=== PATIENT | male | born 1945 | race Caucasian/White ===

== ENCOUNTER → 2018-10-06 14:50 | Outpatient (CLI) | payer MEDICARE, SELFPAY ==
[2018-10-06 18:07] LABS: Add Manual Diff / Slide Review NO; Basophils Absolute Auto 0 /uL (0-100); Basophils Percent Auto 0.5 % (0-2); Eosinophils Absolute Auto 100 /uL (0-450); Eosinophils Percent Auto 0.6 % (2-4); Hematocrit 45.7 % (41-53); Hemoglobin 15.3 g/dL (13.5-17.5); Lymphocytes Absolute Auto 2400 /uL (1100-4500); Lymphocytes Percent Auto 27.7 % (25-40); Mean Corpuscular HGB Conc 33.4 % (30-36); Mean Corpuscular Hemoglobin 31.1 PG (26-34); Mean Corpuscular Volume 93.1 fL (80-100); Monocytes Absolute Auto 600 /uL (0-900); Monocytes Percent Auto 6.8 % (3-14); Neutrophils Absolute Auto 5700 /uL (1500-7000); Neutrophils Percent Auto 64.4 % (50-75); Platelet Count 289 X10^3/uL (150-400); Red Blood Cell Count 4.91 X10^6/uL (4.5-5.9); Red Cell Distribution Width 12.6 % (11.6-14.8); White Blood Cell Count 8.8 X10^3/uL (4.5-11.0)
[2018-10-06 18:54] LABS: Alanine Aminotransferase 30 IU/L (21-72); Albumin 4.4 g/dL (3.5-5.0); Albumin Globulin Ratio 1.5 (1.0-2.8); Alkaline Phosphatase 80 U/L (38-126); Aspartate Aminotransferase 22 IU/L (17-59); BUN Creatinine Ratio 18.8 (6-22); Bilirubin Total 0.5 mg/dL (0.2-1.3); Blood Urea Nitrogen 15 mg/dL (9-20); Calcium 9.1 mg/dL (8.4-10.2); Carbon Dioxide 29 mmol/L (22-32); Chloride 97 mmol/L (98-107); Cholesterol 198 mg/dL (140-199); Estimated Glomerular Filt Rate > 60.0 mL/min (>60); Globulin 2.9 g/dL (1.7-4.1); Glucose 83 mg/dL (80-110); HDL Cholesterol 56 mg/dL (40-60); HEMOLYSIS < 15 (0-50); LDL Cholesterol Calculated 130 mg/dL (<100); Potassium 4.5 mmol/L (3.4-5.1); Sodium 137 mmol/L (137-145); Total Protein 7.3 g/dL (6.3-8.2); Triglycerides 59 mg/dL (35-150)
[2018-10-06 19:24] LABS: Thyroid Stimulating Hormone 2.09 uIU/mL (0.47-4.68)
[2018-10-06 19:25] LABS: Prostate Specific Antigen Scrn 18.9 ng/mL (0.1-4.0)
== END ==
PROVIDERS: PCP Family Medicine; Visit Provider Family Medicine
DX: E03.9 Hypothyroidism, unspecified (principal); E78.5 Hyperlipidemia, unspecified; I10 Essential (primary) hypertension; Z12.5 Encounter for screening for malignant neoplasm of prostate
CPT/HCPCS: 36415; 80053; 80061; 84443; 85025; G0103

== ENCOUNTER → 2019-01-03 11:39 | Outpatient (CLI) | payer MEDICARE, SELFPAY | PROVIDERS: PCP Family Medicine; Visit Provider Family Medicine ==

== ENCOUNTER → 2019-01-03 11:59 | Outpatient (CLI) | payer MEDICARE, SELFPAY ==
--- NOTE | 2019-01-03 | DI.CT.S_ITS ---
PROCEDURE: CT CHEST ABD PEL W CON INDICATIONS: Malignant neoplasm of prostate TECHNIQUE: After the administration of oral and intravenous contrast, 5 mm thick sections acquired from the lung apices to the symphysis. 5 mm coronal and sagittal reformats were performed, with additional 7 mm coronal MIP reformats through the lungs. For radiation dose reduction, the following was used: automated exposure control, adjustment of mA and/or kV according to patient size. COMPARISON: None. FINDINGS: Image quality: Excellent. CHEST: Lungs and pleura: There is a 6 mm nodule in the left lower lobe. A ground glass density in lingula is likely discoid atelectasis. No acute airspace opacities. No pleural effusions or pneumothorax. Central and peripheral airways appear patent and normal in caliber. Mediastinum: Heart size is normal. No pericardial effusion. No mediastinal or hilar adenopathy by size criteria. Thoracic aorta and central pulmonary arteries are normal in size. Esophagus is normal in caliber. No hiatal hernia. Chest wall: No axillary or supraclavicular adenopathy by size criteria. Thyroid gland is unremarkable. ABDOMEN: Solid organs: Small indeterminate low density nodules in Liver is normal in size and enhancement. Gallbladder is normal. Biliary system is non dilated. Pancreas enhances normally. Spleen is normal in size and enhancement. No adrenal nodules. Kidneys demonstrate normal size and enhancement, without hydronephrosis. There is a 9 mm exophytic cortical nodule in the left kidney, most likely a cyst. Peritoneum and bowel: Bowel loops demonstrate normal wall thickness and caliber. There are scattered colonic diverticula. No evidence for active diverticulitis. No free fluid or air. Nodes and vessels: No retroperitoneal or mesenteric adenopathy by size criteria. Aorta and inferior vena cava are normal in size. There is moderate atherosclerosis. Miscellaneous: No ventral hernias. PELVIS: Genitourinary: Bladder wall appears slightly thickened. Prostate is enlarged and heterogeneous in enhancement with multiple small enhancing nodules. Miscellaneous: No inguinal hernias or adenopathy. Bones: Small indeterminate sclerotic bone lesions are noted in T4, T5, and L5, and left iliac bone. Mild compression fracture of T5. No vertebral body compression fractures. There is a left femoral neck fracture with internal fixation. IMPRESSION: 1. Enlarged prostate with heterogeneous enhancement and nodularity consistent with known diagnosis of prostate cancer. 2. Mild bilateral thickening suggest mild chronic bladder outlet obstruction. 3. There is a 6 mm nodule in the left lower lobe. Recommend followup CT in 3 months. 4. Small hepatic hypodensities are most likely cysts. 5. Small indeterminate sclerotic bone lesions are noted in T4, T5, and L5, and left iliac bone. Please correlate with bone scan. 6. Mild compression fracture of T5. 7. Diverticulosis without acute diverticulitis. Dictated by: Inderjit Retana M.D. on 01/03/2019 at 16:33 Approved by: Inderjit Retana M.D. on 01/03/2019 at 17:48
== END ==
PROVIDERS: PCP Family Medicine; Visit Provider Urology
DX: C61 Malignant neoplasm of prostate (principal); K76.9 Liver disease, unspecified; K57.90 Diverticulosis of intestine, part unspecified, without perforation or abscess without bleeding; M89.9 Disorder of bone, unspecified; M48.54XA Collapsed vertebra, not elsewhere classified, thoracic region, initial encounter for fracture
CPT/HCPCS: 71260; 74177; Q9967

== ENCOUNTER → 2019-01-16 09:36 | Outpatient (CLI) | payer MEDICARE, SELFPAY ==
--- NOTE | 2019-01-16 | DI.NM.S_ITS ---
PROCEDURE: NM BONE SCAN WHOLE BODY RADIOPHARMACEUTICAL: 21.0 mCi Tc-99m MDP IV. INDICATIONS: PROSTATE CANCER TECHNIQUE: Delayed whole-body scintigrams were obtained approximately 3-4 hours after intravenous injection of radiotracer. Anterior and posterior views were acquired from vertex to feet. Additional left and right oblique views of the pelvis with the were obtained. COMPARISON: [facility], CT, CT CHEST ABD PEL W CON, 01/03/2019, 12:55. [facility], CR, THORACIC SPINE 3 VIEWS, 06/07/2015, 10:11. [facility], CR, CERVICAL SPINE 2 OR 3 VIEWS, 06/07/2015, 10:11. FINDINGS: Linear uptake seen at the T10 level of the thoracic spine probably discogenic. Elsewhere, no suspicious tracer activity identified. Periarticular uptake about the knees is likely degenerative. Presumed discogenic activity seen in the lower cervical spine. No definite tracer activity to correlate with the small sclerotic bone lesions described on the comparison CT IMPRESSION: No definite suspicious tracer activity identified. Dictated by: Brad Sprague M.D. on 01/16/2019 at 15:49 Approved by: Brad Sprague M.D. on 01/16/2019 at 16:15
== END ==
PROVIDERS: PCP Family Medicine; Visit Provider Urology
DX: C61 Malignant neoplasm of prostate (principal)
CPT/HCPCS: 78306; A9503

== ENCOUNTER → 2019-03-08 11:41 | Outpatient (CLI) | payer MEDICARE, SELFPAY ==
[2019-03-08 12:28] LABS: Add Manual Diff / Slide Review NO; Basophils Absolute Auto 0 /uL (0-100); Basophils Percent Auto 0.6 % (0-2); Eosinophils Absolute Auto 100 /uL (0-450); Hemoglobin 15.1 g/dL (13.5-17.5); Lymphocytes Absolute Auto 1900 /uL (1100-4500); Lymphocytes Percent Auto 27.3 % (25-40); Mean Corpuscular HGB Conc 34.3 % (30-36); Mean Corpuscular Hemoglobin 31.5 PG (26-34); Mean Corpuscular Volume 91.9 fL (80-100); Monocytes Absolute Auto 500 /uL (0-900); Monocytes Percent Auto 7.1 % (3-14); Neutrophils Absolute Auto 4500 /uL (1500-7000); Platelet Count 283 X10^3/uL (150-400); Red Blood Cell Count 4.79 X10^6/uL (4.5-5.9); Red Cell Distribution Width 12.4 % (11.6-14.8)
[2019-03-08 12:41] LABS: Creatinine Urine Random 101.4 mg/dL
[2019-03-08 12:45] LABS: Microalbumi Creatinin Ratio Ur 24.6 ug/mg CR (<30); Microalbumin Urine Random 2.5 mg/dL (0-1.6)
[2019-03-08 17:12] LABS: Alanine Aminotransferase 22 IU/L (21-72); Albumin 4.2 g/dL (3.5-5.0); Albumin Globulin Ratio 1.4 (1.0-2.8); Alkaline Phosphatase 87 U/L (38-126); Aspartate Aminotransferase 22 IU/L (17-59); BUN Creatinine Ratio 27.1 (6-22); Bilirubin Total 0.5 mg/dL (0.2-1.3); Blood Urea Nitrogen 19 mg/dL (9-20); Calcium 9.5 mg/dL (8.4-10.2); Carbon Dioxide 28 mmol/L (22-32); Chloride 101 mmol/L (98-107); Cholesterol 222 mg/dL (140-199); Estimated Glomerular Filt Rate > 60.0 mL/min (>60); Glucose 103 mg/dL (80-110); HDL Cholesterol 57 mg/dL (40-60); HEMOLYSIS < 15 (0-50); LDL Cholesterol Calculated 153 mg/dL (<100); Sodium 139 mmol/L (137-145); Total Protein 7.2 g/dL (6.3-8.2); Triglycerides 60 mg/dL (35-150)
[2019-03-08 17:42] LABS: TSH w/ Reflex to FT4 3.78 uIU/mL (0.47-4.68)
== END ==
PROVIDERS: PCP Family Medicine; Visit Provider Family Medicine
DX: E78.00 Pure hypercholesterolemia, unspecified (principal); I10 Essential (primary) hypertension; E03.9 Hypothyroidism, unspecified; E78.5 Hyperlipidemia, unspecified; Z12.5 Encounter for screening for malignant neoplasm of prostate
CPT/HCPCS: 36415; 80053; 80061; 82043; 82570; 84443; 85025

== ENCOUNTER → 2020-01-19 11:10 | Outpatient (CLI) | payer MEDICARE, SELFPAY ==
[2020-01-19 13:46] LABS: Prostate Specific Antigen < 0.064 ng/mL (0.10-4.00)
[2020-01-19 13:46] LABS: Thyroid Stimulating Hormone 4.37 uIU/mL (0.47-4.68)
== END ==
PROVIDERS: PCP Family Medicine; Referring Provider Radiology Radiation Oncology; Visit Provider Radiology Radiation Oncology
DX: C61 Malignant neoplasm of prostate (principal); E05.00 Thyrotoxicosis with diffuse goiter without thyrotoxic crisis or storm
CPT/HCPCS: 36415; 84153; 84443

== ENCOUNTER → 2020-07-02 14:31 | Outpatient (CLI) | payer MEDICARE, SELFPAY ==
[2020-07-02 16:32] LABS: Prostate Specific Antigen 0.281 ng/mL (0.10-4.00)
== END ==
PROVIDERS: PCP Family Medicine; Referring Provider Urology; Visit Provider Urology
DX: Z85.46 Personal history of malignant neoplasm of prostate (principal)
CPT/HCPCS: 36415; 84153

== ENCOUNTER → 2021-01-16 12:16 | Outpatient (CLI) | payer MEDICARE, SELFPAY ==
[2021-01-16 13:20] LABS: Add Manual Diff / Slide Review NO; Basophils Absolute Auto 0 /uL (0-100); Basophils Percent Auto 0.5 % (0-2); Eosinophils Absolute Auto 100 /uL (0-450); Eosinophils Percent Auto 1.2 % (2-4); Hematocrit 45.6 % (41-53); Hemoglobin 15.1 g/dL (13.5-17.5); Lymphocytes Absolute Auto 1400 /uL (1100-4500); Lymphocytes Percent Auto 22.2 % (25-40); Mean Corpuscular HGB Conc 33.1 % (30-36); Mean Corpuscular Hemoglobin 32.1 PG (26-34); Mean Corpuscular Volume 96.9 fL (80-100); Monocytes Absolute Auto 500 /uL (0-900); Monocytes Percent Auto 8.3 % (3-14); Neutrophils Absolute Auto 4200 /uL (1500-7000); Neutrophils Percent Auto 67.8 % (50-75); Platelet Count 259 X10^3/uL (150-400); Red Blood Cell Count 4.71 X10^6/uL (4.5-5.9); Red Cell Distribution Width 12.7 % (11.6-14.8); White Blood Cell Count 6.2 X10^3/uL (4.5-11.0)
[2021-01-16 13:41] LABS: Alanine Aminotransferase 19 IU/L (<50); Albumin Globulin Ratio 1.3 (1.0-2.8); Alkaline Phosphatase 80 U/L (38-126); Aspartate Aminotransferase 28 IU/L (17-59); BUN Creatinine Ratio 17.3 (6-22); Bilirubin Total 0.4 mg/dL (0.2-1.3); Blood Urea Nitrogen 13 mg/dL (9-20); Calcium 9.4 mg/dL (8.4-10.2); Carbon Dioxide 28 mmol/L (22-32); Chloride 103 mmol/L (98-107); Cholesterol 224 mg/dL (140-199); Estimated Glomerular Filt Rate > 60.0 mL/min (>60); Glucose 93 mg/dL (80-110); HDL Cholesterol 67 mg/dL (40-60); HEMOLYSIS < 15 (0-50); LDL Cholesterol Calculated 146 mg/dL (<100); Potassium 4.8 mmol/L (3.4-5.1); Sodium 136 mmol/L (137-145); Triglycerides 56 mg/dL (35-150)
[2021-01-16 14:11] LABS: Prostate Specific Antigen 0.623 ng/mL (0.10-4.00)
[2021-01-16 14:12] LABS: Thyroid Stimulating Hormone 5.82 uIU/mL (0.47-4.68)
== END ==
PROVIDERS: PCP Family Medicine; Referring Provider Radiology Radiation Oncology; Visit Provider Radiology Radiation Oncology
DX: C61 Malignant neoplasm of prostate (principal); I10 Essential (primary) hypertension; E05.00 Thyrotoxicosis with diffuse goiter without thyrotoxic crisis or storm
CPT/HCPCS: 36415; 80053; 80061; 84153; 84443; 85025

== ENCOUNTER → 2022-10-08 13:45 | Outpatient (CLI) | payer OTHER, SELFPAY ==
--- NOTE | 2022-10-08 13:47 | DI.CT.S_ITS ---
PROCEDURE: CT CHEST W CON INDICATIONS: pulmonary nodule TECHNIQUE: After the administration of intravenous contrast, 5 mm thick sections acquired from the pulmonary apices to the posterior costophrenic angles. 1 mm axial lung, 5 mm thick coronal and sagittal reformats and 7 mm axial MIP were acquired. For radiation dose reduction, the following was used: automated exposure control, adjustment of mA and/or kV according to patient size. COMPARISON: PET-CT 09/09/2022. FINDINGS: Image quality: Excellent. Lungs and pleura: Moderate centrilobular emphysema. Multiple solid pulmonary nodules. Examples include: - Stable 6-7 mm solid, subpleural nodule in the left upper lobe (3/128). - Stable 5-6 mm solid nodule in the left lower lobe (3/174). - stable 5 mm solid nodule, lateral right lower lobe (3/181). Mediastinum: The FDG avid subcarinal lymph node has minimally increased in size, measuring 6 mm short axis, previously 5 mm short axis (2/32). This is not enlarged by size criteria. Three-vessel coronary calcifications. No additional enlarged lymph nodes. Bones and chest wall: No suspicious bony lesions. No vertebral body compression fractures. No axillary or supraclavicular adenopathy by size criteria. Thyroid gland is unremarkable. Osteoporosis by Hounsfield units criteria. Abdomen: Visualized upper abdominal solid organs appear normal. Upper abdominal bowel loops are normal in caliber. IMPRESSION: 1. Stable pulmonary nodules, suspicious for metastasis. 2. Minimal interval growth of the FDG avid subcarinal lymph node, measuring 6 mm short axis, previously 5 mm short axis. Mirta disease is not excluded. 3. Osteoporosis by Hounsfield units criteria. Dictated by: Dionisio Wahl M.D. on 10/08/2022 at 17:01 Approved by: Dionisio Wahl M.D. on 10/08/2022 at 17:08
== END ==
PROVIDERS: PCP Family Medicine; Referring Provider Internal Medicine Hematology & Oncology; Visit Provider Internal Medicine Hematology & Oncology
DX: R91.8 Other nonspecific abnormal finding of lung field (principal); J43.2 Centrilobular emphysema; R97.20 Elevated prostate specific antigen [PSA]; M81.0 Age-related osteoporosis without current pathological fracture
CPT/HCPCS: 71260; Q9967

== ENCOUNTER → 2023-03-09 11:40 | Outpatient (CLI) | payer OTHER, SELFPAY ==
--- NOTE | 2023-03-09 11:42 | DI.CT.S_ITS ---
PROCEDURE: CT CHEST WO CON INDICATIONS: prostate cancer TECHNIQUE: Noncontrast 5 mm thick sections acquired from the pulmonary apices to the posterior costophrenic angles. 1 mm lung window, 5 mm thick coronal and sagittal and 7 mm axial MIP reformats were then acquired. For radiation dose reduction, the following was used: automated exposure control, adjustment of mA and/or kV according to patient size. COMPARISON: None. FINDINGS: Image quality: Excellent. Lungs and pleura: No acute air space opacities. No pleural effusions or pneumothorax. Central and peripheral airways are patent and normal in caliber. Calcified granuloma. No suspicious pulmonary nodules. Moderate centrilobular emphysema. Mediastinum: Heart size is normal. No pericardial effusion. No mediastinal adenopathy by size criteria. Thoracic aorta and central pulmonary arteries are normal in size. Esophagus is normal in caliber. No hiatal hernia. Three-vessel coronary calcifications. Bones and chest wall: 4 mm dense bony lesion in the T4 endplate (series 6, image 40). No vertebral body compression fractures. No axillary or supraclavicular adenopathy by size criteria. Thyroid gland is diminutive . Abdomen: Visualized upper abdominal solid organs and bowel loops appear normal in the absence of contrast. IMPRESSION: 4 mm dense bony lesion in the T4 endplate, possibly a focus of metastatic disease versus bone island. Otherwise, no evidence of metastatic disease. Dictated by: Dionisio Wahl M.D. on 03/09/2023 at 14:50 Approved by: Dionisio Wahl M.D. on 03/09/2023 at 14:53
== END ==
PROVIDERS: PCP Family Medicine; Referring Provider Internal Medicine Hematology & Oncology; Visit Provider Internal Medicine Hematology & Oncology
DX: C61 Malignant neoplasm of prostate (principal); C79.51 Secondary malignant neoplasm of bone; J43.2 Centrilobular emphysema; I25.10 Atherosclerotic heart disease of native coronary artery without angina pectoris
CPT/HCPCS: 71250

== ENCOUNTER → 2023-03-15 13:20 | Outpatient (CLI) | payer OTHER, SELFPAY ==
--- NOTE | 2023-03-15 13:22 | DI.RAD.S_ITS ---
PROCEDURE: XR THORACIC SPINE 3V INDICATIONS: BACK PAIN TECHNIQUE: 3 views of the thoracic spine were acquired. COMPARISON: [facility], , THORACIC SPINE 3 VIEWS, 06/07/2015, 10:11., CT chest 03/09/2023 FINDINGS: Bones: The bones are demineralized. No high-grade degenerative changes. No acute appearing vertebral body height loss. No traumatic subluxation. There is a sclerotic lesion at the anterior superior T4 endplate and posterior T5 endplate, corresponding to dense bony lesions seen on recent CT. 12 pairs of ribs are noted, and appear intact where visualized. Soft tissues: No paravertebral stripe thickening. Aortic arch is calcified, indicating atherosclerosis. IMPRESSION: No acute osseous abnormality or traumatic subluxation. Sclerotic lesion in T4 and T5 vertebral bodies corresponding to dense bony lesion seen on recent CT 03/09/2023 and may represent enostosis versus metastatic disease. Approved by: Katharine Hdez M.D. on 03/15/2023 at 23:32
--- NOTE | 2023-03-15 13:22 | DI.RAD.S_ITS ---
PROCEDURE: XR LUMBAR SPINE 2-3V INDICATIONS: BACK PAIN TECHNIQUE: 3 views of the lumbar spine were acquired. COMPARISON: None. FINDINGS: Bones: 5 [id number] vertebrae are present. Mild to moderate multilevel disc height loss, endplate sclerosis and osteophytosis, worse at L2-L3, L4-L5 and L5-S1. No acute vertebral body height loss or traumatic subluxation. Partially visualized left femur fixation hardware. Soft tissues: Overlying bowel gas pattern is normal. Vascular calcifications are present. IMPRESSION: No acute osseous abnormality. Multilevel degenerative changes of the lumbar spine, most notably and moderate at L2-L3, L4-L5 and L5-S1. Approved by: Katharine Hdez M.D. on 03/15/2023 at 23:23
== END ==
PROVIDERS: PCP Family Medicine; Referring Provider Family Medicine; Visit Provider Family Medicine
DX: C61 Malignant neoplasm of prostate (principal); C79.51 Secondary malignant neoplasm of bone; M47.816 Spondylosis without myelopathy or radiculopathy, lumbar region; M47.817 Spondylosis without myelopathy or radiculopathy, lumbosacral region; M89.9 Disorder of bone, unspecified; M54.9 Dorsalgia, unspecified
CPT/HCPCS: 72072; 72100

== ENCOUNTER 2023-03-16 16:29 | Emergency (ER) | payer OTHER, SELFPAY ==
[2023-03-16 16:38] VITALS: BP 149/70; PULSE 67; RESP 18; TEMP 36.8; O2SAT 99; BMI 20.7
[2023-03-16] MEDS: LIDOCAINE PATCH 1 EACH ADH..PATCH TOP (18:38)
--- NOTE | 2023-03-16 18:38 | ED_ITS ---
HPI - Back Pain/Injury <Irma Alejo PA-C - Last Filed: 03/16/23 18:47> General Chief Complaint: Back Pain/Injury Stated Complaint: pain, sent by MD Time Seen by Provider: 03/16/23 18:13 Source: patient History of Present Illness HPI Narrative: 77-year-old male with past medical history prostate cancer with metastasis to the bone, essential hypertension, Graves disease presents to the ED with 5 days of mid back pain. Patient states that they called their PCP Dr. Castaneda yesterday and she ordered lumbar and thoracic x-rays, they have a follow-up appointment with her tomorrow. She also sent in a prescription for oxycodone which has provided good relief for the patient. Patient states that he used a heavy leaf blower a week ago, following which his pain started. Patient also had a CT of the chest on 03/09/23 which showed some midthoracic bony lesion, which possibly could be a focus of metastatic disease versus bone island. Patient denies fever, chills, chest pain, shortness of breath. Pain is aggravated with movements. Patient denies saddle paresthesias, numbness, tingling, weakness, urinary difficulties. Related Data Home Medications Medication Instructions Recorded Confirmed Serotonin 1 tab DAILY 09/14/22 12/14/22 acetylcysteine 600 mg capsule (NAC) 600 mg PO 3XW 09/14/22 12/14/22 ascorbic acid (vitamin C) 500 mg 500 mg PO 3XW 09/14/22 12/14/22 tablet (Vitamin C) multivitamin 1 tab PO 3XW 09/14/22 12/14/22 quercetin 500 mg capsule 500 mg PO 3XW 09/14/22 12/14/22 vitamin D3 125 mcg (5,000 1 cap PO 3XW 09/14/22 12/14/22 unit)-vitamin K2 90 mcg capsule zinc 50 mg capsule 50 mg PO 3XW 09/14/22 12/14/22 Previous Rx's Medication Instructions Recorded prednisone 5 mg tablet 5 mg PO DAILY prostate cancer #30 10/22/22 tabs abiraterone 250 mg tablet 1,000 mg PO DAILY #120 tabs 10/29/22 atenolol 50 mg tablet 50 mg PO DAILY #90 tabs 02/18/23 thyroid (pork) 60 mg tablet See Rx Instructions PO DAILY #90 02/18/23 tabs oxycodone 5 mg tablet 5 mg PO TID PRN pain #20 tabs 03/15/23 Allergies Allergy/AdvReac Type Severity Reaction Status Date / Time No Known Drug Allergies Allergy Verified 03/16/23 16:44 Review of Systems <Irma Alejo PA-C - Last Filed: 03/16/23 18:47> Review of Systems ROS Unobtainable: All systems reviewed & are unremarkable except as noted in HPI and below Constitutional Constitutional: Denies chills, Denies fatigue, Denies fever(s), Denies frequent falls, Denies lethargy and Denies weakness Eyes Eyes: Denies change in vision, Denies eye discharge, Denies irritation and Denies loss of vision ENT Ears, Nose, Mouth, and Throat: Denies change in voice, Denies dizziness, Denies neck pain, Denies sore throat and Denies throat swelling Cardiovascular Cardiovascular: Denies chest pain, Denies irregular heart rhythm, Denies lightheadedness, Denies palpitations, Denies dyspnea, Denies dyspnea on exertion and Denies orthopnea Respiratory Respiratory: Denies cough, Denies dyspnea, Denies dyspnea on exertion and Denies wheezing Gastrointestinal Gastrointestinal: Denies abdominal pain, Denies change in bowel habits, Denies diarrhea, Denies nausea and Denies vomiting Genitourinary Genitourinary: Denies hematuria, Denies flank pain, Denies urinary incontinence and Denies urinary urgency Musculoskeletal Musculoskeletal: Reports back pain, Denies muscle weakness, Denies neck pain, Denies numbness and Denies tingling Integumentary/Breasts Skin/Breast: Denies pruritus, Denies erythema, Denies rash and Denies wounds Neurologic Neurologic: Denies behavioral changes, Denies confusion, Denies dizziness, Denies frequent falls, Denies loss of vision, Denies numbness, Denies tingling and Denies weakness Psychiatric Psychiatric: Denies anxiety, Denies behavioral changes, Denies confusion, Denies depression, Denies homicidal ideation and Denies suicidal ideation Endocrine Endocrine: Denies fatigue, Denies flushing and Denies palpitations Hematologic/Lymphatic Hematologic/Lymphatic: Denies easy bruising Allergic/Immunologic Allergic/Immunologic: Denies urticaria, Denies throat swelling and Denies wheezing Patient History <Irma Alejo PA-C - Last Filed: 03/16/23 18:47> Medical History Depression (06/21/15) Essential hypertension Graves disease 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) Family History Father Stroke Social History marital status: number of children: 2 household members: spouse lives independently: Yes caregiver/support person: No housing: house Smoking Status: Former smoker second hand exposure: No alcohol intake: current substance use type: does not use Smoking Status: Former smoker alcohol intake frequency: 0-2 drinks per day Substance Use Type: does not use Exam <Irma Alejo PA-C - Last Filed: 03/16/23 18:47> Narrative Exam Narrative: Const General:?cooperative, healthy appearing and comfortable HENSC Head:?normal to inspection Ears:?hearing grossly normal bilaterally Nose:?external nose normal Face and sinus:?normal facial exam and sinuses nontender Mouth:?oral mucosae normal Throat:?posterior oropharynx normal Eyes General:?appearance normal, both eyes and all related structures Neck Neck:?normal visual inspection and no lymphadenopathy noted Resp Effort & Inspection:?normal respiratory effort Auscultation:?clear to auscultation bilaterally Cardio Rate:?regular rate Rhythm:?regular rhythm Musculoskeletal No midline tenderness to palpation. No paraspinal tenderness to palpation. Strength and sensation intact. There is full range of motion. Patient is neurovascularly intact. Neuro General:?patient alert, patient awake and patient oriented x3 Initial Vital Signs Initial Vital Signs: Vital Signs Temperature 98.2 F 03/16/23 16:38 Pulse Rate 67 03/16/23 16:38 Respiratory Rate 18 03/16/23 16:38 Blood Pressure 149/70 H 03/16/23 16:38 Pulse Oximetry 99 03/16/23 16:38 Oxygen Delivery Method Room Air 03/16/23 16:38 <Nurys Miranda DO - Last Filed: 03/17/23 09:05> Initial Vital Signs Initial Vital Signs: Vital Signs Temperature 98.2 F 03/16/23 16:38 Pulse Rate 67 03/16/23 16:38 Respiratory Rate 18 03/16/23 16:38 Blood Pressure 149/70 H 03/16/23 16:38 Pulse Oximetry 99 03/16/23 16:38 Oxygen Delivery Method Room Air 03/16/23 16:38 Course <Irma Alejo PA-C - Last Filed: 03/16/23 18:47> Orders Ordered: Discontinued Medications Lidocaine (Lidocaine Patch 1 Each Adh..Patch) 1 each TOP NOW ONE Stop: 03/16/23 18:35 Last Admin: 03/16/23 18:38 Dose: 1 each Documented By: JOSE Vital Signs Vital signs: Vital Signs - 8 hr 03/16/23 16:38 Temperature 98.2 F Pulse Rate 67 Respiratory Rate 18 Blood Pressure 149/70 H Pulse Oximetry 99 Oxygen Delivery Method Room Air <Nurys Miranda DO - Last Filed: 03/17/23 09:05> Orders Ordered: Discontinued Medications Lidocaine (Lidocaine Patch 1 Each Adh..Patch) 1 each TOP NOW ONE Stop: 03/16/23 18:35 Last Admin: 03/16/23 18:38 Dose: 1 each Documented By: JOSE Vital Signs Vital signs: Vital Signs - 8 hr 03/16/23 16:38 Temperature 98.2 F Pulse Rate 67 Respiratory Rate 18 Blood Pressure 149/70 H Pulse Oximetry 99 Oxygen Delivery Method Room Air MDM - Back Pain/Injury <Irma Alejo PA-C - Last Filed: 03/16/23 18:47> MDM Narrative Medical decision making narrative: 77-year-old male with past medical history prostate cancer with metastasis to the bone, essential hypertension, Graves disease presents to the ED with 5 days of mid back pain. Patient's symptoms are likely due to either a musculoskeletal sprain/strain from using the leaf blower versus metastatic disease that was found on x-ray and CT. Given that patient already has a prescription for oxycodone given by his PCP, recommend continuing to take that until he sees her tomorrow at noon. Also recommend adding on lidocaine patches for relief. ED return precautions given to patient. Patient verbalized understanding. Medical records reviewed: Yes Discharge Plan Departure Patient Disposition: Home Clinical Impression: Back pain Instructions: DI for Thoracic Back Pain Activity Restrictions/Additional Instructions: You were evaluated in the ED today for back pain. The thoracic back x-ray shows a sclerotic lesion in T4 and T5 vertebral bodies which could either be a benign in those doses versus metastatic disease from the prostate cancer. This was also seen in the recent CT that was performed on 03/09/2023. Your symptoms today could be caused either because you have a musculoskeletal sprain/strain of the back from using the leaf blower or it could be due to the findings on the x- ray. You have an appointment with Dr. Castaneda tomorrow, and she has already prescribed oxycodone for pain control. Please continue the oxycodone, you may also add on lidocaine patches for relief. Lidocaine patches are available [id number] at all drug stores under the trade name [employer]. Return to the ED if you experience any numbness, tingling, weakness, urinary difficulties. Prescriptions: No Action thyroid (pork) 60 mg tablet See Rx Instructions PO DAILY Qty: 90 1RF Rx Instructions: Take one 60mg tab along with one 15mg tab daily atenolol 50 mg tablet 50 mg PO DAILY Qty: 90 3RF oxycodone 5 mg tablet 5 mg PO TID PRN (Reason: pain) Qty: 20 0RF multivitamin Tablet 1 tab PO 3XW ascorbic acid (vitamin C) [Vitamin C] 500 mg Tablet 500 mg PO 3XW zinc 50 mg Capsule 50 mg PO 3XW acetylcysteine [NAC] 600 mg Capsule 600 mg PO 3XW Rx Instructions: pt to confirm dose vitamin D3-vitamin K2 125-90 mcg Capsule 1 cap PO 3XW Rx Instructions: PT UNSURE OF DOSE-PT TO CONFIRM quercetin 500 mg Capsule 500 mg PO 3XW Serotonin 1 tab DAILY prednisone 5 mg Tablet 5 mg PO DAILY Qty: 30 11RF abiraterone 250 mg Tablet 1,000 mg PO DAILY Qty: 120 11RF Rx Instructions: must be taken on empty stomach, at least 1 hr before or 2 hrs after a meal/food Referrals: Lindsay Carmen MD [Primary Care Provider] - Stand Alone Forms: Patient Portal/API <Nurys Miranda DO - Last Filed: 03/17/23 09:05> Cosign ED Attending Alizeature Attestation: I was immediately available in the department for consultation. Documentation has been reviewed.
[2023-03-16 18:46] VITALS: BP 166/75; PULSE 66; RESP 18; O2SAT 96
== END 2023-03-16 18:57 | disposition home or self-care (01) ==
PROVIDERS: Emergency Provider Student in an Organized Health Care Education/Training Program; PCP Family Medicine; Referring Provider Family Medicine
DX: M54.6 Pain in thoracic spine (principal)
CPT/HCPCS: 99282

== ENCOUNTER → 2023-03-20 09:11 | Outpatient (CLI) | payer OTHER, SELFPAY ==
--- NOTE | 2023-03-20 09:13 | DI.MRI.S_ITS ---
PROCEDURE: MR THORACIC SPINE WO CON INDICATIONS: 77-year-old male with back pain and history of prostate cancer. Stat interpretation requested TECHNIQUE: Noncontrast sagittal T1 spine echo and T2 fast spin echo, sagittal STIR, and T2 fast spin echo through the thoracic spine. COMPARISON: [facility], CT, CT CHEST WO CON, 03/09/2023, 11:50. FINDINGS: Image quality: Excellent. Alignment and Curvature: There is normal bony alignment. Bone Marrow: Wedge-shaped compression fracture of T7 shows internal marrow edema, new from the prior exam. No retropulsed fracture fragment. No central stenosis. Additional T5 compression fracture with 10% height loss is also noted without edema or change from the prior. Incidental T10 vertebral hemangioma Spinal Cord: Visualized spinal cord is normal in size and signal. Paraspinous Soft Tissues: No paravertebral masses. Miscellaneous: On axial images, central canal and foramina appear widely patent at all scanned levels. IMPRESSION: Acute T7 compression fracture with 50% height loss and no retropulsed fracture fragment. No canal compromise. Old T5 compression fracture, stable No evidence of metastatic disease Approved by: Derek Saleh M.D. on 03/20/2023 at 11:24
--- NOTE | 2023-03-20 09:13 | DI.MRI.S_ITS ---
PROCEDURE: MR LUMBAR SPINE WO CON INDICATIONS: back pain TECHNIQUE: Noncontrast sagittal T1 spin echo and T2 fast echo, sagittal STIR, and T2 fast spin echo through the lumbar spine. In cases with scoliosis, additional coronal T2 fast spin echo may be performed. COMPARISON: None. FINDINGS: Image quality: Excellent. Alignment and Curvature: There is normal bony alignment. Bone Marrow: Degenerative endplate changes. No compression fractures. Spinal Cord: Conus medullaris terminates at the L1 level. Visualized cord demonstrates normal signal and size. Paraspinous Soft Tissues: No paravertebral masses. T12-L1: Normal appearance. L1-L2: Normal appearance. L2-L3: Disc space narrowing with circumferential disc bulge results in mild central stenosis. Moderate bilateral foraminal stenosis L3-L4: Disc space narrowing with circumferential disc bulge and hypertrophic facet joints results in mild central stenosis. No foraminal stenosis L4-L5: Disc space narrowing with circumferential disc bulge results in mild central and moderate bilateral foraminal stenosis L5-S1: Disc space narrowing. No central or foraminal stenosis IMPRESSION: No acute findings. No fracture or traumatic malalignment. Multilevel degenerative disc disease results in varying degrees of central and foraminal stenosis including moderate bilateral foraminal stenosis L4-5 Approved by: Derek Saleh M.D. on 03/20/2023 at 10:59
== END ==
PROVIDERS: PCP Family Medicine; Referring Provider Family Medicine; Visit Provider Family Medicine
DX: C61 Malignant neoplasm of prostate (principal); C79.51 Secondary malignant neoplasm of bone; M51.36 Other intervertebral disc degeneration, lumbar region; M48.061 Spinal stenosis, lumbar region without neurogenic claudication; M48.54XA Collapsed vertebra, not elsewhere classified, thoracic region, initial encounter for fracture; M54.9 Dorsalgia, unspecified
CPT/HCPCS: 72146; 72148

== ENCOUNTER 2023-07-15 13:00 | Outpatient (RCR) | payer OTHER, SELFPAY ==
--- NOTE | 2023-06-10 16:37 | PT.OIE ---
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) Visit Care Team Role Provider Type Lindsay Carmen MD Attending Provider Physician Family Provider Primary Care Provider Referring Provider Specialty: Family Practice Address: [address] [place] [address], [facility] Email: [email or web address] Physical Therapy Initial Evaluation PT-OP-A Visit Information Start: 06/10/23 14:10 Freq: Status: Active Protocol: Document 06/10/23 15:30 NM (Rec: 06/10/23 16:36 NM [id number]) Out-Patient Physical Therapy Visit Information Visit Information Visit Type Initial Evaluation Visit Start Time 13:00 Visit Stop Time 13:50 Total Visit Minutes 50 Visit Number 1 Evaluation Information Evaluation Date 06/10/23 Precautions Precautions Hx of metastatic cancer: no spinal manipulations or spinal mobilizations Current and Hx of thoracic compression wedge fracture: limit spinal flexion especially loaded PT-OP-B Current Condition Start: 06/10/23 14:10 Freq: Status: Active Protocol: Document 06/10/23 15:30 NM (Rec: 06/10/23 16:36 NM [id number]) Current Condition History of Current Condition Onset Date January 2023 Current Complaints low back and mid back pain, weakness, poor endurance for activity and gait History of Current Condition Pt presents to clinic with mild thoracic and low back pain s/p a wedge compression fracture that occurred in January 2023. Pt was performing yard work (weed eater and leaf blower) when he felt a severe, sharp pain in the middle of his back that did not resolve. He had extreme difficulty walking, sitting, standing, and performing his ADLs. He followed up with Dr. Carmen, who ordered xrays, CT, and MRIs to determine the cause. Imaging revealed a stable compression wedge fracture at T7; he has a former T5 compression fracture. Pt was not given a brace but has been limiting his activity. At this time, he rarely has any thoracic spine pain. 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 He lives with his . Pt reports being active around the house, but has decreased energy overall. At the time of evaluation, pt has most difficulty with endurance, strength, posture, and performing ADLs. Prior Treatments and Tests Hx of L AMY (1999) Imaging results (03/20/23): MRI - T7 compression fracture with 50% height loss, no retropulsion, no cord compression; old T5 compression fracture. Stable. No sign of metastasis Treatment Goals Patient/Caregiver Goals Become stronger and more active Prior Functional Status Baseline Function- ADL's Independent Baseline Function- Mobility Independent Baseline Function- Gait walked about 1 mile/day Baseline Function- Recreation/Hobbies able to perform yard work, ADLs Personal Factors Other Personal Factors That May Effect Pt is currently receiving oral Therapy/Recovery chemo for prostate cancer, but reports that his blood markers are showing improvement. PT-OP-C Subjective Start: 06/10/23 14:10 Freq: Status: Active Protocol: Document 06/10/23 15:30 NM (Rec: 06/10/23 16:36 NM [id number]) Patient Questionnaires Oswestry Low Back Index Oswestry Score 13/50 OP-PT Pain Assessment Pain Assessment Grid Paper Pain Assessment Grid Completed Yes Location Lumbar spine Pain Location Details L>R Intensity 1 Scale Used Numeric (0 - 10) Description Aching,Dull Frequency Rarely Pain Duration during activity Pain Aggravating Factors Activity,Exercise,Bending, Lifting Pain Alleviating Factors Inactivity Thoracic spine Pain Location Details around shoulder blades Intensity 1 Scale Used Numeric (0 - 10) Description Aching,Dull Frequency Rarely Pain Duration during activity Pain Aggravating Factors Activity,Exercise,Bending, Lifting Pain Alleviating Factors Inactivity Comments Pain Comments Overall, pt reports more discomfort in his lumbar spine over his thoracic spine at this time. Pt is self-limiting , which helps his pain. PT-OP-D Balance Start: 06/10/23 14:10 Freq: Status: Active Protocol: Document 06/10/23 15:30 NM (Rec: 06/10/23 16:36 NM [id number]) OP-PT Balance Assessment Sitting Balance Static Sitting Balance Ability Normal Dynamic Sitting Balance Ability Normal Standing Balance Static Standing Balance Ability Good Dynamic Standing Balance Ability Fair Device Used none Tinetti Balance Assessment Sitting Balance Sitting Balance Steady, safe Arising from Chair Ability to Arise Able, w/o using arms Attempts to Arise Arises on 1st attempt Standing Balance Immediate Standing Balance Steady w/o support Standing Balance Narrow stance w/o support Nudged Response Staggers, catches self Standing with Eyes Closed Unsteady Turning Step Pattern Turning 360 Degrees Continuous steps Stability Turning 360 Degrees Unsteady, grabs/staggers Sitting Down Sitting Down Uses arms or unsteady Gait and Step Initiation of Gait No hesitancy Right Foot Step Length Does pass stance foot Right Foot Step Height Completely clears floor Left Foot Step Length Does pass stance foot Left Foot Step Height Completely clears floor Step Description Step Symmetry Step length appears equal Step Continuity Steps appear continuous Gait Description Path Description Mild/moderate deviation Trunk Description No sway Walking Stance Heels apart Scoring and Interpretation Tinetti Composite Score (points) 22 Interpretation of Scores At risk for falls (19-24) Tinetti Impairment Rating from Composite 1 to <20% Impaired (Score 23- Score 27) Adkins Fall Scale Copyright Permission PT-OP-E Functional Tests Start: 06/10/23 14:10 Freq: Status: Active Protocol: Document 06/10/23 15:30 NM (Rec: 06/10/23 16:36 NM [id number]) Functional Tests 6 Minute Walk Test Distance 1282 ft Device Used none Comments 390 m (below age norm), reports this walk is tiring Five Times Sit to Stand Test Score 15.38 s Comments no hands used PT-OP-F Manual Assessment Start: 06/10/23 14:10 Freq: Status: Active Protocol: Document 06/10/23 15:30 NM (Rec: 06/10/23 16:36 NM [id number]) Manual Assessments Joint Mobility Assessment Joint Mobility Assessment Thoracic spine individual joint not assessed due to fracture hx and risk PT-OP-G Mobility & Gait Start: 06/10/23 14:10 Freq: Status: Active Protocol: Document 06/10/23 15:30 NM (Rec: 06/10/23 16:36 NM [id number]) OP Gait Assessment Gait Gait Assistance Required: Independent Factors Limiting Gait Function Factors Limiting Gait Function Decreased Activity Tolerance, Decreased Strength PT-OP-H Neuro Start: 06/10/23 14:10 Freq: Status: Active Protocol: Document 06/10/23 15:30 NM (Rec: 06/10/23 16:36 NM [id number]) Sensation Evaluation Gross Sensation Gross Sensation WNL Coordination Evaluation Comments Coordination Comments C5-T12 dermatomes intact to light touch Deep Tendon Reflex & Clonus Assessment Deep Tendon Reflex Bilateral Bicep Deep Tendon Reflex 1+ Diminished PT-OP-J Posture/Palpation/Skin Start: 06/10/23 14:10 Freq: Status: Active Protocol: Document 06/10/23 15:30 NM (Rec: 06/10/23 16:36 NM [id number]) Posture Evaluation Position Standing Evaluation View posterior, anterior, lateral Head/C-Spine Posture Flexed T-Spine Posture Increased Kyphosis L-Spine Posture Increased Lordosis Shoulder Posture (L) Rounded,(R) Rounded,(L) Forward,(R) Forward Scapula Posture (L) Protracted,(R) Protracted Pelvis Posture Anteriorly Tilted Weight Distribution Balanced PT-OP-K Range of Motion Start: 06/10/23 14:10 Freq: Status: Active Protocol: Document 06/10/23 15:30 NM (Rec: 06/10/23 16:36 NM [id number]) Cervical Spine Range of Motion Cervical Spine Active Degrees Testing Position Sitting Flexion 60 Extension 30 Rotation Left 72 Rotation Right 60 Lateral Flexion Left 15 Lateral Flexion Right 20 Comments Thoracic Spine: -Flexion = 20 deg -Extension = 10 deg -R Lateral flexion = 10 deg -L lateral flexion = 10 deg -R rotation = 7 cm -L rotation = 6 cm No pain with movements Shoulder Goniometric Range of Motion Shoulder ROM Limitations Shoulder ROM Limitations Soft Tissue Tightness Comments General mobility screen performed due to time constraints: limited shoulder flexion and abduction (~150 deg); all remaining motions WFL PT-OP-M Strength Start: 06/10/23 14:10 Freq: Status: Active Protocol: Document 06/10/23 15:30 NM (Rec: 06/10/23 16:36 NM [id number]) Trunk Strength Trunk Manual Muscle Testing Testing Position Sitting Flexion 3+ Fair+ Extension 3+ Fair+ Rotation Left 3+ Fair+ Rotation Right 3+ Fair+ Lateral Flexion Left 3+ Fair+ Lateral Flexion Right 3+ Fair+ Core Stabilization Minimal - demos difficulty with stabilization and sway with resistance PT-OP-Q Treatments Start: 06/10/23 14:10 Freq: Status: Active Protocol: Document 06/10/23 15:30 NM (Rec: 06/10/23 16:36 NM [id number]) Therapeutic Exercises Sitting Exercises Pelvic tilt Sitting Exercise Name HEP Side bilateral Reps/Minutes 10 Comments cues for upright posture; educated to slump for ppt Chin retraction Sitting Exercise Name HEP Side bilateral Reps/Minutes 10 Comments with overpressure; cues for good upright posture PT-OP-T Assessment and Plan Start: 06/10/23 14:10 Freq: Status: Active Protocol: Document 06/10/23 15:30 NM (Rec: 06/10/23 16:36 NM [id number]) Physical Therapy Assessment Rehab Potential Rehabilitation Potential Good Evaluation Complexity Number of Personal Factors/Comorbidities 3 or More Number of Body Systems Impaired 3 Clinical Presentation at Evaluation Evolving Impairments Impairments Activity Tolerance,Balance, Coordination,Functional Activities,Functional Mobility ,Gait,Pain,Posture,ROM,Soft Tissue Mobility,Strength Other Concerns Fall Risk Moderate fall risk per Tinetti () Age Related Concerns Pt has hx of thyroiditis, eye problems, and wears hearing aids > reads lips Barriers to Rehabilitation Changes to cancer dx and treatment Goals Five Impairment strength Impairment trunk strength globally 3+/5 Short Term Goal (STG) Pt will improve global trunk strength to at least 4-/5 demonstrating good core activation strategies in order to stabilize spine effectively during gait, standing, lifting, and for activity tolerance. STG Duration 3 weeks Copyright Expert Goal (LTG) Pt will improve global trunk strength to at least 4/5 demonstrating good core activation strategies in order to stabilize spine effectively during gait, standing, lifting, and for improved activity tolerance. LTG Duration 6 weeks Four Impairment function, safety Impairment increased risk of compression fractures Short Term Goal (STG) Pt will verbalize at least 3 strategies for good body mechanics during lifting or carrying objects in order to decrease risk of compression fractures, improve safety during ADLs, and create new functional strategies to be able to perform ADLs. STG Duration 3 weeks Fci Goal (LTG) Pt will be able to verbalize and successfully demonstrate at least 3 strategies during lifting or carrying objects in order to decrease risk of compression fractures, improve safety during ADLs, and to create new functional strategies to be able to perform ADLs. LTG Duration 6 weeks Three Impairment ROM Impairment Thoracic ROM limited: flex (20 deg), ext (10 deg), B lateral flex (10 deg) Fci Goal (LTG) Pt will improve his thoracic ROM by at least 3-5 degrees to decrease trunk stiffness, improve posture, and increase functional mobility in order to perform ADLs. LTG Duration 6 weeks Two Impairment balance, function, safety Impairment Tinetti test score 22/28 ( moderate fall risk) Short Term Goal (STG) Pt will increase his Tinetti score by at least 2 points in order to move from the moderate fall risk category to low fall risk category in order to decrease fall risk and caregiver burden. STG Duration 3 weeks Copyright Expert Goal (LTG) Pt will increase his Tinetti score by 2 or more points in order to move to the low fall risk category in order to demonstrate safety during ambulation in addition to decrease fall risk and caregiver burden. LTG Duration 6 weeks One Impairment function, gait, endurance Impairment 6 MWT distance = 1282 ft (390m ) Norm for age = 527 m Short Term Goal (STG) Pt will improve 6 MWT by at least 50 m (MCID) in order to demonstrate improved endurance , strength, and balance. STG Duration 3 weeks Copyright Expert Goal (LTG) Pt will improve 6 MWT by at least 100 m in order to be within 50 m (1 MCID) of age- related norms in order to demonstrate improved endurance , activity tolerance, and BLE strength. LTG Duration 6 weeks Assessment Summary Assessment Pt is a 77 y.o. male presenting to the clinic with mild thoracic and low back pain s/p a thoracic compression wedge fracture from 01/2023; fracture is stable. Pt currently is also being treated for prostate cancer. During the evaluation, pt demonstrated limited and hypomobile thoracic and lumbar ROM; specific spinal segments were not assessed manually due to hx of compression fractures. Pt also demonstrated difficulty with stabilizing trunk and core against resistance. A 6 MWT was performed; pt ambulated 390 m, which is below his age- related norms. During a Tinetti balance and gait assessment, pt scored in the moderate fall risk category with a score of 22/28. There are impairments in balance, gait, trunk and core strength, endurance, and ROM. Pt would benefit from education on body mechanics during ADLs, especially lifting, carrying, yard work, and for general safety. During the evaluation, pt expressed that he was cautious and afraid of mobility due to fear of re- fracture. Pt is motivated to return to safely return to activity and is a good candidate for skilled PT to address the above impairments in order to decrease fall risk , increase safety during ADLs, decrease risk of re-injury, decrease caregiver burden, and increase activity tolerance to improve quality of life. Physical Therapy Plan Frequency and Duration Frequency of Treatment 2x/Week Duration of treatment (weeks) 6 Plan of Care Start Date 06/10/23 Plan of Care End Date 07/22/23 Therapeutic Interventions Therapeutic Interventions Balance Training,Coordination Training,Gait Training,Home Exercise Program,Neuromuscular Re-education,Patient/ Caregiver Education,Soft Tissue Mobilization,Taping, Therapeutic Activities, Therapeutic Exercises Modalities Cold Pack/Ice Massage,Electric Stimulation,Hot Packs Other Referrals/Consults Referrals/Consults Recommended Pt reports experiencing vision difficulties related to prior condition, 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 Continue with postural education and exercises
--- NOTE | 2023-06-15 14:21 | PT.OTN ---
Current Diagnoses Weakness (06/15/23) Wedge compression fracture of unspecified thoracic vertebra, subsequent encounter for fracture with routine healing (06/15/23) Physical Therapy Treatment Note PT-OP-A Visit Information Start: 06/10/23 14:10 Freq: Status: Active Protocol: Document 06/15/23 13:55 NM (Rec: 06/15/23 14:21 NM [id number]) Out-Patient Physical Therapy Visit Information Visit Information Visit Type Treatment Note Visit Start Time 13:00 Visit Stop Time 13:48 Total Visit Minutes 48 Visit Number 2 Evaluation Information Evaluation Date 06/10/23 Precautions Precautions Hx of metastatic cancer: no spinal manipulations or spinal mobilizations Current and Hx of thoracic compression wedge fracture: limit spinal flexion especially loaded PT-OP-B Current Condition Start: 06/10/23 14:10 Freq: Status: Active Protocol: Document 06/10/23 15:30 NM (Rec: 06/10/23 16:36 NM [id number]) Current Condition History of Current Condition Onset Date January 2023 Current Complaints low back and mid back pain, weakness, poor endurance for activity and gait History of Current Condition Pt presents to clinic with mild thoracic and low back pain s/p a wedge compression fracture that occurred in January 2023. Pt was performing yard work (weed eater and leaf blower) when he felt a severe, sharp pain in the middle of his back that did not resolve. He had extreme difficulty walking, sitting, standing, and performing his ADLs. He followed up with Dr. Carmen, who ordered xrays, CT, and MRIs to determine the cause. Imaging revealed a stable compression wedge fracture at T7; he has a former T5 compression fracture. Pt was not given a brace but has been limiting his activity. At this time, he rarely has any thoracic spine pain. 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 He lives with his . Pt reports being active around the house, but has decreased energy overall. At the time of evaluation, pt has most difficulty with endurance, strength, posture, and performing ADLs. Prior Treatments and Tests Hx of L AMY (1999) Imaging results (03/20/23): MRI - T7 compression fracture with 50% height loss, no retropulsion, no cord compression; old T5 compression fracture. Stable. No sign of metastasis Treatment Goals Patient/Caregiver Goals Become stronger and more active Prior Functional Status Baseline Function- ADL's Independent Baseline Function- Mobility Independent Baseline Function- Gait walked about 1 mile/day Baseline Function- Recreation/Hobbies able to perform yard work, ADLs Personal Factors Other Personal Factors That May Effect Pt is currently receiving oral Therapy/Recovery chemo for prostate cancer, but reports that his blood markers are showing improvement. PT-OP-C Subjective Start: 06/10/23 14:10 Freq: Status: Active Protocol: Document 06/15/23 13:55 NM (Rec: 06/15/23 14:21 NM [id number]) OP-PT Subjective Patient Comments Patient Comments Pt reports that he is doing well with minimal low back pain today (08/11), no change since evaluation. He has been doing his exercises at home, and he thinks that they are helping so far. Patient Reported Progress Same PT-OP-D Balance Start: 06/10/23 14:10 Freq: Status: Active Protocol: Document 06/10/23 15:30 NM (Rec: 06/10/23 16:36 NM [id number]) OP-PT Balance Assessment Sitting Balance Static Sitting Balance Ability Normal Dynamic Sitting Balance Ability Normal Standing Balance Static Standing Balance Ability Good Dynamic Standing Balance Ability Fair Device Used none Tinetti Balance Assessment Sitting Balance Sitting Balance Steady, safe Arising from Chair Ability to Arise Able, w/o using arms Attempts to Arise Arises on 1st attempt Standing Balance Immediate Standing Balance Steady w/o support Standing Balance Narrow stance w/o support Nudged Response Staggers, catches self Standing with Eyes Closed Unsteady Turning Step Pattern Turning 360 Degrees Continuous steps Stability Turning 360 Degrees Unsteady, grabs/staggers Sitting Down Sitting Down Uses arms or unsteady Gait and Step Initiation of Gait No hesitancy Right Foot Step Length Does pass stance foot Right Foot Step Height Completely clears floor Left Foot Step Length Does pass stance foot Left Foot Step Height Completely clears floor Step Description Step Symmetry Step length appears equal Step Continuity Steps appear continuous Gait Description Path Description Mild/moderate deviation Trunk Description No sway Walking Stance Heels apart Scoring and Interpretation Tinetti Composite Score (points) 22 Interpretation of Scores At risk for falls (19-24) Tinetti Impairment Rating from Composite 1 to <20% Impaired (Score 23- Score 27) Adkins Fall Scale Copyright Permission PT-OP-E Functional Tests Start: 06/10/23 14:10 Freq: Status: Active Protocol: Document 06/10/23 15:30 NM (Rec: 06/10/23 16:36 NM [id number]) Functional Tests 6 Minute Walk Test Distance 1282 ft Device Used none Comments 390 m (below age norm), reports this walk is tiring Five Times Sit to Stand Test Score 15.38 s Comments no hands used PT-OP-F Manual Assessment Start: 06/10/23 14:10 Freq: Status: Active Protocol: Document 06/10/23 15:30 NM (Rec: 06/10/23 16:36 NM [id number]) Manual Assessments Joint Mobility Assessment Joint Mobility Assessment Thoracic spine individual joint not assessed due to fracture hx and risk PT-OP-G Mobility & Gait Start: 06/10/23 14:10 Freq: Status: Active Protocol: Document 06/10/23 15:30 NM (Rec: 06/10/23 16:36 NM [id number]) OP Gait Assessment Gait Gait Assistance Required: Independent Factors Limiting Gait Function Factors Limiting Gait Function Decreased Activity Tolerance, Decreased Strength PT-OP-H Neuro Start: 06/10/23 14:10 Freq: Status: Active Protocol: Document 06/10/23 15:30 NM (Rec: 06/10/23 16:36 NM [id number]) Sensation Evaluation Gross Sensation Gross Sensation WNL Coordination Evaluation Comments Coordination Comments C5-T12 dermatomes intact to light touch Deep Tendon Reflex & Clonus Assessment Deep Tendon Reflex Bilateral Bicep Deep Tendon Reflex 1+ Diminished PT-OP-J Posture/Palpation/Skin Start: 06/10/23 14:10 Freq: Status: Active Protocol: Document 06/10/23 15:30 NM (Rec: 06/10/23 16:36 NM [id number]) Posture Evaluation Position Standing Evaluation View posterior, anterior, lateral Head/C-Spine Posture Flexed T-Spine Posture Increased Kyphosis L-Spine Posture Increased Lordosis Shoulder Posture (L) Rounded,(R) Rounded,(L) Forward,(R) Forward Scapula Posture (L) Protracted,(R) Protracted Pelvis Posture Anteriorly Tilted Weight Distribution Balanced PT-OP-K Range of Motion Start: 06/10/23 14:10 Freq: Status: Active Protocol: Document 06/10/23 15:30 NM (Rec: 06/10/23 16:36 NM [id number]) Cervical Spine Range of Motion Cervical Spine Active Degrees Testing Position Sitting Flexion 60 Extension 30 Rotation Left 72 Rotation Right 60 Lateral Flexion Left 15 Lateral Flexion Right 20 Comments Thoracic Spine: -Flexion = 20 deg -Extension = 10 deg -R Lateral flexion = 10 deg -L lateral flexion = 10 deg -R rotation = 7 cm -L rotation = 6 cm No pain with movements Shoulder Goniometric Range of Motion Shoulder ROM Limitations Shoulder ROM Limitations Soft Tissue Tightness Comments General mobility screen performed due to time constraints: limited shoulder flexion and abduction (~150 deg); all remaining motions WFL PT-OP-M Strength Start: 06/10/23 14:10 Freq: Status: Active Protocol: Document 06/10/23 15:30 NM (Rec: 06/10/23 16:36 NM [id number]) Trunk Strength Trunk Manual Muscle Testing Testing Position Sitting Flexion 3+ Fair+ Extension 3+ Fair+ Rotation Left 3+ Fair+ Rotation Right 3+ Fair+ Lateral Flexion Left 3+ Fair+ Lateral Flexion Right 3+ Fair+ Core Stabilization Minimal - demos difficulty with stabilization and sway with resistance PT-OP-Q Treatments Start: 06/10/23 14:10 Freq: Status: Active Protocol: Document 06/15/23 13:55 NM (Rec: 06/15/23 14:21 NM [id number]) Cardio Equipment Recumbent Stepper (Sci-Fit) Duration (Minutes) 5 Resistance 2 Other 31 RPM. LE only Therapeutic Exercises Supine Exercises LTR Side bilateral Reps/Minutes 2x30 Comments for low back relaxation Sitting Exercises Chin retraction Sitting Exercise Name For erect sitting + chin retraction + TA activation + scap retraction Side bilateral Reps/Minutes 2x10 Comments with overpressure; difficulty with scap retraction even with manual facil Standing Exercises Row Side bilateral Resistance blue tb Reps/Minutes 2x10 Comments difficulty with scap retraction even with manual facilitation Pec stretch Side bilateral Equipment Used door frame Reps/Minutes 2x30 Comments reports stretch in mid back too Scapular Y Side bilateral Equipment Used wall Reps/Minutes 2x15 Comments for erect posture, LT activation Other Exercises Squat Other Exercise Name HEP Side bilateral Resistance none Equipment Used table Reps/Minutes 2x15 Comments BUE in front for weight shift, cues for eccentric control/ post shift to sit Self-Care/Home Management Treatment Education Patient Education Home Exercise Program Other Education Breathing PT-OP-T Assessment and Plan Start: 06/10/23 14:10 Freq: Status: Active Protocol: Document 06/15/23 13:55 NM (Rec: 06/15/23 14:21 NM [id number]) Physical Therapy Assessment Rehab Potential Rehabilitation Potential Good Evaluation Complexity Number of Personal Factors/Comorbidities 3 or More Number of Body Systems Impaired 3 Clinical Presentation at Evaluation Evolving Impairments Impairments Activity Tolerance,Balance, Coordination,Functional Activities,Functional Mobility ,Gait,Pain,Posture,ROM,Soft Tissue Mobility,Strength Other Concerns Fall Risk Moderate fall risk per Tinetti (22) Age Related Concerns Pt has hx of thyroiditis, eye problems, and wears hearing aids > reads lips Barriers to Rehabilitation Changes to cancer dx and treatment Goals Five Impairment strength Impairment trunk strength globally 3+/5 Short Term Goal (STG) Pt will improve global trunk strength to at least 4-/5 demonstrating good core activation strategies in order to stabilize spine effectively during gait, standing, lifting, and for activity tolerance. STG Duration 3 weeks Halfway Goal (LTG) Pt will improve global trunk strength to at least 4/5 demonstrating good core activation strategies in order to stabilize spine effectively during gait, standing, lifting, and for improved activity tolerance. LTG Duration 6 weeks Four Impairment function, safety Impairment increased risk of compression fractures Short Term Goal (STG) Pt will verbalize at least 3 strategies for good body mechanics during lifting or carrying objects in order to decrease risk of compression fractures, improve safety during ADLs, and create new functional strategies to be able to perform ADLs. STG Duration 3 weeks Halfway Goal (LTG) Pt will be able to verbalize and successfully demonstrate at least 3 strategies during lifting or carrying objects in order to decrease risk of compression fractures, improve safety during ADLs, and to create new functional strategies to be able to perform ADLs. 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 LTG Duration 6 weeks Two Impairment balance, function, safety Impairment Tinetti test score 22/28 ( moderate fall risk) Short Term Goal (STG) Pt will increase his Tinetti score by at least 2 points in order to move from the moderate fall risk category to low fall risk category in order to decrease fall risk and caregiver burden. Halfway Goal (LTG) Pt will increase his Tinetti score by 2 or more points in order to move to the low fall risk category in order to demonstrate safety during ambulation in addition to decrease fall risk and caregiver burden. LTG Duration 6 weeks One Impairment function, gait, endurance Impairment 6 MWT distance = 1282 ft (390m ) Norm for age = 527 m Short Term Goal (STG) Pt will improve 6 MWT by at least 50 m (MCID) in order to demonstrate improved endurance , strength, and balance. STG Duration 3 weeks Halfway Goal (LTG) Pt will improve 6 MWT by at least 100 m in order to be within 50 m (1 MCID) of age- related norms in order to demonstrate improved endurance , activity tolerance, and BLE strength. LTG Duration 6 weeks Assessment Summary Assessment Pt tolerated treatment well today. Due to flexion posture, activities emphasizing trunk extension were initiated today and will progress as tolerated. Pt has limited trunk mobility and would benefit from continued ROM within safe parameters to prevent compression fracture and to reduce pain in low back . Pt has moderate difficulty with performing scapular retraction motion during rows and sitting activity for erect posture, even with manual facilitation by PT. He was unable to perform a supine bridge without compensations, which did not occur when performing a table squat. Educated pt on importance of breathing during activities as he tends to hold his breath and will continue encourage in future sessions. Pt would benefit from skilled PT to address impairments in strength, ROM, endurance, safety during mobility, and to improve activity tolerance. Physical Therapy Plan Frequency and Duration Frequency of Treatment 2x/Week Duration of treatment (weeks) 6 Plan of Care Start Date 06/10/23 Plan of Care End Date 07/22/23 Therapeutic Interventions Therapeutic Interventions Balance Training,Coordination Training,Gait Training,Home Exercise Program,Neuromuscular Re-education,Patient/ Caregiver Education,Soft Tissue Mobilization,Taping, Therapeutic Activities, Therapeutic Exercises Modalities Cold Pack/Ice Massage,Electric Stimulation,Hot Packs Other Referrals/Consults Referrals/Consults Recommended Pt reports experiencing vision difficulties related to prior condition, instructed to make appt with travel writer Next Visit Focus/Plan Next Note Type Treatment Note Next Visit Plan Progress trunk and BLE strengthening activities ( emphasize extension). Initiate gentle trunk ROM. Practice safe transfers to/from floor for exercises and begin education on hip hinge. Continue with postural exercises, especially retraction and breathing during activities. Review HEP
--- NOTE | 2023-06-17 15:41 | PT.OTN ---
Current Diagnoses Weakness (06/17/23) Wedge compression fracture of unspecified thoracic vertebra, subsequent encounter for fracture with routine healing (06/17/23) Physical Therapy Treatment Note PT-OP-A Visit Information Start: 06/10/23 14:10 Freq: Status: Active Protocol: Document 06/17/23 13:52 NM (Rec: 06/17/23 14:31 NM [id number]) Out-Patient Physical Therapy Visit Information Visit Information Visit Type Treatment Note Visit Start Time 13:45 Visit Stop Time 14:30 Total Visit Minutes 45 Visit Number 3 Evaluation Information Evaluation Date 06/10/23 PT-OP-B Current Condition Start: 06/10/23 14:10 Freq: Status: Active Protocol: Document 06/10/23 15:30 NM (Rec: 06/10/23 16:36 NM [id number]) Current Condition History of Current Condition Onset Date January 2023 Current Complaints low back and mid back pain, weakness, poor endurance for activity and gait History of Current Condition Pt presents to clinic with mild thoracic and low back pain s/p a wedge compression fracture that occurred in January 2023. Pt was performing yard work (weed eater and leaf blower) when he felt a severe, sharp pain in the middle of his back that did not resolve. He had extreme difficulty walking, sitting, standing, and performing his ADLs. He followed up with Dr. Carmen, who ordered xrays, CT, and MRIs to determine the cause. Imaging revealed a stable compression wedge fracture at T7; he has a former T5 compression fracture. Pt was not given a brace but has been limiting his activity. At this time, he rarely has any thoracic spine pain. 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 He lives with his . Pt reports being active around the house, but has decreased energy overall. At the time of evaluation, pt has most difficulty with endurance, strength, posture, and performing ADLs. Prior Treatments and Tests Hx of L AMY (1999) Imaging results (03/20/23): MRI - T7 compression fracture with 50% height loss, no retropulsion, no cord compression; old T5 compression fracture. Stable. No sign of metastasis Treatment Goals Patient/Caregiver Goals Become stronger and more active Prior Functional Status Baseline Function- ADL's Independent Baseline Function- Mobility Independent Baseline Function- Gait walked about 1 mile/day Baseline Function- Recreation/Hobbies able to perform yard work, ADLs Personal Factors Other Personal Factors That May Effect Pt is currently receiving oral Therapy/Recovery chemo for prostate cancer, but reports that his blood markers are showing improvement. PT-OP-C Subjective Start: 06/10/23 14:10 Freq: Status: Active Protocol: Document 06/17/23 13:52 NM (Rec: 06/17/23 14:31 NM [id number]) OP-PT Subjective Patient Comments Patient Comments Pt reports that he is sore today, especially in his legs after the session on Wednesday. He was able to do some of his exercises, but not the squats because he was too sore. He says he notices his legs... they got worked. PT-OP-D Balance Start: 06/10/23 14:10 Freq: Status: Active Protocol: Document 06/10/23 15:30 NM (Rec: 06/10/23 16:36 NM [id number]) OP-PT Balance Assessment Sitting Balance Static Sitting Balance Ability Normal Dynamic Sitting Balance Ability Normal Standing Balance Static Standing Balance Ability Good Dynamic Standing Balance Ability Fair Device Used none Tinetti Balance Assessment Sitting Balance Sitting Balance Steady, safe Arising from Chair Ability to Arise Able, w/o using arms Attempts to Arise Arises on 1st attempt Standing Balance Immediate Standing Balance Steady w/o support Standing Balance Narrow stance w/o support Nudged Response Staggers, catches self Standing with Eyes Closed Unsteady Turning Step Pattern Turning 360 Degrees Continuous steps Stability Turning 360 Degrees Unsteady, grabs/staggers Sitting Down Sitting Down Uses arms or unsteady Gait and Step Initiation of Gait No hesitancy Right Foot Step Length Does pass stance foot Right Foot Step Height Completely clears floor Left Foot Step Length Does pass stance foot Left Foot Step Height Completely clears floor Step Description Step Symmetry Step length appears equal Step Continuity Steps appear continuous Gait Description Path Description Mild/moderate deviation Trunk Description No sway Walking Stance Heels apart Scoring and Interpretation Tinetti Composite Score (points) 22 Interpretation of Scores At risk for falls (19-24) Tinetti Impairment Rating from Composite 1 to <20% Impaired (Score 23- Score 27) Adkins Fall Scale Copyright Permission PT-OP-E Functional Tests Start: 06/10/23 14:10 Freq: Status: Active Protocol: Document 06/10/23 15:30 NM (Rec: 06/10/23 16:36 NM [id number]) Functional Tests 6 Minute Walk Test Distance 1282 ft Device Used none Comments 390 m (below age norm), reports this walk is tiring Five Times Sit to Stand Test Score 15.38 s Comments no hands used PT-OP-F Manual Assessment Start: 06/10/23 14:10 Freq: Status: Active Protocol: Document 06/10/23 15:30 NM (Rec: 06/10/23 16:36 NM [id number]) Manual Assessments Joint Mobility Assessment Joint Mobility Assessment Thoracic spine individual joint not assessed due to fracture hx and risk PT-OP-G Mobility & Gait Start: 06/10/23 14:10 Freq: Status: Active Protocol: Document 06/10/23 15:30 NM (Rec: 06/10/23 16:36 NM [id number]) OP Gait Assessment Gait Gait Assistance Required: Independent Factors Limiting Gait Function Factors Limiting Gait Function Decreased Activity Tolerance, Decreased Strength PT-OP-H Neuro Start: 06/10/23 14:10 Freq: Status: Active Protocol: Document 06/10/23 15:30 NM (Rec: 06/10/23 16:36 NM [id number]) Sensation Evaluation Gross Sensation Gross Sensation WNL Coordination Evaluation Comments Coordination Comments C5-T12 dermatomes intact to light touch Deep Tendon Reflex & Clonus Assessment Deep Tendon Reflex Bilateral Bicep Deep Tendon Reflex 1+ Diminished PT-OP-J Posture/Palpation/Skin Start: 06/10/23 14:10 Freq: Status: Active Protocol: Document 06/10/23 15:30 NM (Rec: 06/10/23 16:36 NM [id number]) Posture Evaluation Position Standing Evaluation View posterior, anterior, lateral Head/C-Spine Posture Flexed T-Spine Posture Increased Kyphosis L-Spine Posture Increased Lordosis Shoulder Posture (L) Rounded,(R) Rounded,(L) Forward,(R) Forward Scapula Posture (L) Protracted,(R) Protracted Pelvis Posture Anteriorly Tilted Weight Distribution Balanced PT-OP-K Range of Motion Start: 06/10/23 14:10 Freq: Status: Active Protocol: Document 06/10/23 15:30 NM (Rec: 06/10/23 16:36 NM [id number]) Cervical Spine Range of Motion Cervical Spine Active Degrees Testing Position Sitting Flexion 60 Extension 30 Rotation Left 72 Rotation Right 60 Lateral Flexion Left 15 Lateral Flexion Right 20 Comments Thoracic Spine: -Flexion = 20 deg -Extension = 10 deg -R Lateral flexion = 10 deg -L lateral flexion = 10 deg -R rotation = 7 cm -L rotation = 6 cm No pain with movements Shoulder Goniometric Range of Motion Shoulder ROM Limitations Shoulder ROM Limitations Soft Tissue Tightness Comments General mobility screen performed due to time constraints: limited shoulder flexion and abduction (~150 deg); all remaining motions WFL PT-OP-M Strength Start: 06/10/23 14:10 Freq: Status: Active Protocol: Document 06/10/23 15:30 NM (Rec: 06/10/23 16:36 NM [id number]) Trunk Strength Trunk Manual Muscle Testing Testing Position Sitting Flexion 3+ Fair+ Extension 3+ Fair+ Rotation Left 3+ Fair+ Rotation Right 3+ Fair+ Lateral Flexion Left 3+ Fair+ Lateral Flexion Right 3+ Fair+ Core Stabilization Minimal - demos difficulty with stabilization and sway with resistance PT-OP-Q Treatments Start: 06/10/23 14:10 Freq: Status: Active Protocol: Document 06/17/23 13:52 NM (Rec: 06/17/23 14:31 NM [id number]) Cardio Equipment Recumbent Elliptical (Biodex) Duration (Minutes) 5 Resistance 9 Seat Position 9 Other leg only Therapeutic Exercises Standing Exercises Lat pull down Side bilateral Resistance peach band Reps/Minutes 2x15 Comments cues for chin retraction; maintains upright extension well Row Standing Exercise Name 1. mid row, 2. high row Side bilateral Equipment Used peach band Reps/Minutes 2x15 Comments cues for chin retraction, manually facilitating scap retraction Scapular Y Side bilateral Equipment Used wall Reps/Minutes 2x15 Comments cues for scap retraction prior to UE lift off Therapeutic Activity Therapeutic Activity Standing <> Floor transfer Reps/Minutes 8 Comments Using mat on floor and chair for UE support. PT educated pt on standing <> floor transfers for safety as pt is concerned about transferring to/from floor. Pt performed squat and placed hands on chair in front of mat ebfore moving into 1/2 kneel > tall kneel> then reversing process. Performed repeatedly for 8 min. PT verbally cueing sequence in addition to foot placement on ground and facilitating weight shift onto weight bearing LE in 1/2 kneel as pt has tendency try to stand up with foot too far posterior to support weight and without shifting. Neuro Re-Education Treatment Movement Re-Education Movement Re-education Activities 1. Scapular retraction: PT verbally and manually cueing pt into scapular retraction in sitting in order to improve scapular mechanics. Pt performing 2-5 isometrics with repetition as rhomboid activation increases. PT also facilitating contraction with tapping on rhomboids and placing hand between scapulae for pt to squeeze. 2. Scapular retraction + hip retraction: PT verbally and manually cueing pt into scapular retraction simultaneously with hip retraction + small bwd step. This helped pt understand desired scapular movement needed for rows and seated retractions, in addition to promoting upright trunk posture. PT-OP-T Assessment and Plan Start: 06/10/23 14:10 Freq: Status: Active Protocol: Document 06/17/23 13:52 NM (Rec: 06/17/23 14:31 NM [id number]) Physical Therapy Assessment Rehab Potential Rehabilitation Potential Good Impairments Impairments Activity Tolerance,Balance, Coordination,Functional Activities,Functional Mobility ,Gait,Pain,Posture,ROM,Soft Tissue Mobility,Strength Goals Five Impairment strength Impairment trunk strength globally 3+/5 Short Term Goal (STG) Pt will improve global trunk strength to at least 4-/5 demonstrating good core activation strategies in order to stabilize spine effectively during gait, standing, lifting, and for activity tolerance. STG Duration 3 weeks Retail Specialist Goal (LTG) Pt will improve global trunk strength to at least 4/5 demonstrating good core activation strategies in order to stabilize spine effectively during gait, standing, lifting, and for improved activity tolerance. LTG Duration 6 weeks Four Impairment function, safety Impairment increased risk of compression fractures Short Term Goal (STG) Pt will verbalize at least 3 strategies for good body mechanics during lifting or carrying objects in order to decrease risk of compression fractures, improve safety during ADLs, and create new functional strategies to be able to perform ADLs. STG Duration 3 weeks Intermediate Goal (LTG) Pt will be able to verbalize and successfully demonstrate at least 3 strategies during lifting or carrying objects in order to decrease risk of compression fractures, improve safety during ADLs, and to create new functional strategies to be able to perform ADLs. LTG Duration 6 weeks Three Impairment ROM Impairment Thoracic ROM limited: flex (20 deg), ext (10 deg), B lateral flex (10 deg) Retail Specialist Goal (LTG) Pt will improve his thoracic ROM by at least 3-5 degrees to decrease trunk stiffness, improve posture, and increase functional mobility in order to perform ADLs. LTG Duration 6 weeks Two Impairment balance, function, safety Impairment Tinetti test score 22/28 ( moderate fall risk) Short Term Goal (STG) Pt will increase his Tinetti score by at least 2 points in order to move from the moderate fall risk category to low fall risk category in order to decrease fall risk and caregiver burden. STG Duration 3 weeks Intermediate Goal (LTG) Pt will increase his Tinetti score by 2 or more points in order to move to the low fall risk category in order to demonstrate safety during ambulation in addition to decrease fall risk and caregiver burden. LTG Duration 6 weeks One Impairment function, gait, endurance Impairment 6 MWT distance = 1282 ft (390m ) Norm for age = 527 m Short Term Goal (STG) Pt will improve 6 MWT by at least 50 m (MCID) in order to demonstrate improved endurance , strength, and balance. STG Duration 3 weeks Intermediate Goal (LTG) Pt will improve 6 MWT by at least 100 m in order to be within 50 m (1 MCID) of age- related norms in order to demonstrate improved endurance , activity tolerance, and BLE strength. LTG Duration 6 weeks Assessment Summary Assessment Pt tolerated treatment well but is fatigued by toward the end of the session. He requires clear and simple cues for task completion due to hearing. Pt continues to have difficulty with scapular control and movement, particularly into retraction. Treatment today emphasized scapular strengthening and also retraining scapular movements to promote better trunk posture/position. Initiated floor to/from standing transfers as part of strengthening and functional retraining activities. Pt requires consistent cues for sequencing and for safety components such as foot placement and weight shift before standing. Pt would benefit from skilled PT to address impairments in trunk/ core strength, spinal mobility , functional activity tolerance, and body mechanics for safety awareness. Physical Therapy Plan Frequency and Duration Frequency of Treatment 2x/Week Duration of treatment (weeks) 6 Plan of Care Start Date 06/10/23 Plan of Care End Date 07/22/23 Therapeutic Interventions Therapeutic Interventions Balance Training,Coordination Training,Gait Training,Home Exercise Program,Neuromuscular Re-education,Patient/ Caregiver Education,Soft Tissue Mobilization,Taping, Therapeutic Activities, Therapeutic Exercises Modalities Cold Pack/Ice Massage,Electric Stimulation,Hot Packs Next Visit Focus/Plan Next Note Type Treatment Note Next Visit Plan Progress trunk and BLE strengthening functionally. Promote scap retraction and core; possibly hip hinge. Continue postural and safety education.
--- NOTE | 2023-06-29 15:40 | PT.OTN ---
Current Diagnoses Weakness (06/29/23) Wedge compression fracture of unspecified thoracic vertebra, subsequent encounter for fracture with routine healing (06/29/23) Physical Therapy Treatment Note PT-OP-A Visit Information Start: 06/10/23 14:10 Freq: Status: Active Protocol: Document 06/29/23 14:06 NM (Rec: 06/29/23 14:30 NM [id number]) Out-Patient Physical Therapy Visit Information Visit Information Visit Type Treatment Note Visit Start Time 13:45 Visit Stop Time 14:27 Total Visit Minutes 45 Visit Number 4 Evaluation Information Evaluation Date 06/10/23 PT-OP-B Current Condition Start: 06/10/23 14:10 Freq: Status: Active Protocol: Document 06/10/23 15:30 NM (Rec: 06/10/23 16:36 NM [id number]) Current Condition History of Current Condition Onset Date January 2023 Current Complaints low back and mid back pain, weakness, poor endurance for activity and gait History of Current Condition Pt presents to clinic with mild thoracic and low back pain s/p a wedge compression fracture that occurred in January 2023. Pt was performing yard work (weed eater and leaf blower) when he felt a severe, sharp pain in the middle of his back that did not resolve. He had extreme difficulty walking, sitting, standing, and performing his ADLs. He followed up with Dr. Carmen, who ordered xrays, CT, and MRIs to determine the cause. Imaging revealed a stable compression wedge fracture at T7; he has a former T5 compression fracture. Pt was not given a brace but has been limiting his activity. At this time, he rarely has any thoracic spine pain. 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 He lives with his . Pt reports being active around the house, but has decreased energy overall. At the time of evaluation, pt has most difficulty with endurance, strength, posture, and performing ADLs. Prior Treatments and Tests Hx of L AMY (1999) Imaging results (03/20/23): MRI - T7 compression fracture with 50% height loss, no retropulsion, no cord compression; old T5 compression fracture. Stable. No sign of metastasis Treatment Goals Patient/Caregiver Goals Become stronger and more active Prior Functional Status Baseline Function- ADL's Independent Baseline Function- Mobility Independent Baseline Function- Gait walked about 1 mile/day Baseline Function- Recreation/Hobbies able to perform yard work, ADLs Personal Factors Other Personal Factors That May Effect Pt is currently receiving oral Therapy/Recovery chemo for prostate cancer, but reports that his blood markers are showing improvement. PT-OP-C Subjective Start: 06/10/23 14:10 Freq: Status: Active Protocol: Document 06/29/23 14:06 NM (Rec: 06/29/23 15:31 NM [id number]) OP-PT Subjective Patient Comments Patient Comments Pt reports that he is tired today after a long week of travel. He reports no midback pain or discomfort today. He was not able to do his exercises very often last week because of travel. Patient Reported Progress Improving PT-OP-D Balance Start: 06/10/23 14:10 Freq: Status: Active Protocol: Document 06/10/23 15:30 NM (Rec: 06/10/23 16:36 NM [id number]) OP-PT Balance Assessment Sitting Balance Static Sitting Balance Ability Normal Dynamic Sitting Balance Ability Normal Standing Balance Static Standing Balance Ability Good Dynamic Standing Balance Ability Fair Device Used none Tinetti Balance Assessment Sitting Balance Sitting Balance Steady, safe Arising from Chair Ability to Arise Able, w/o using arms Attempts to Arise Arises on 1st attempt Standing Balance Immediate Standing Balance Steady w/o support Standing Balance Narrow stance w/o support Nudged Response Staggers, catches self Standing with Eyes Closed Unsteady Turning Step Pattern Turning 360 Degrees Continuous steps Stability Turning 360 Degrees Unsteady, grabs/staggers Sitting Down Sitting Down Uses arms or unsteady Gait and Step Initiation of Gait No hesitancy Right Foot Step Length Does pass stance foot Right Foot Step Height Completely clears floor Left Foot Step Length Does pass stance foot Left Foot Step Height Completely clears floor Step Description Step Symmetry Step length appears equal Step Continuity Steps appear continuous Gait Description Path Description Mild/moderate deviation Trunk Description No sway Walking Stance Heels apart Scoring and Interpretation Tinetti Composite Score (points) 22 Interpretation of Scores At risk for falls (19-24) Tinetti Impairment Rating from Composite 1 to <20% Impaired (Score 23- Score 27) Adkins Fall Scale Copyright Permission PT-OP-E Functional Tests Start: 06/10/23 14:10 Freq: Status: Active Protocol: Document 06/10/23 15:30 NM (Rec: 06/10/23 16:36 NM [id number]) Functional Tests 6 Minute Walk Test Distance 1282 ft Device Used none Comments 390 m (below age norm), reports this walk is tiring Five Times Sit to Stand Test Score 15.38 s Comments no hands used PT-OP-F Manual Assessment Start: 06/10/23 14:10 Freq: Status: Active Protocol: Document 06/10/23 15:30 NM (Rec: 06/10/23 16:36 NM [id number]) Manual Assessments Joint Mobility Assessment Joint Mobility Assessment Thoracic spine individual joint not assessed due to fracture hx and risk PT-OP-G Mobility & Gait Start: 06/10/23 14:10 Freq: Status: Active Protocol: Document 06/10/23 15:30 NM (Rec: 06/10/23 16:36 NM [id number]) OP Gait Assessment Gait Gait Assistance Required: Independent Factors Limiting Gait Function Factors Limiting Gait Function Decreased Activity Tolerance, Decreased Strength PT-OP-H Neuro Start: 06/10/23 14:10 Freq: Status: Active Protocol: Document 06/10/23 15:30 NM (Rec: 06/10/23 16:36 NM [id number]) Sensation Evaluation Gross Sensation Gross Sensation WNL Coordination Evaluation Comments Coordination Comments C5-T12 dermatomes intact to light touch Deep Tendon Reflex & Clonus Assessment Deep Tendon Reflex Bilateral Bicep Deep Tendon Reflex 1+ Diminished PT-OP-J Posture/Palpation/Skin Start: 06/10/23 14:10 Freq: Status: Active Protocol: Document 06/10/23 15:30 NM (Rec: 06/10/23 16:36 NM [id number]) Posture Evaluation Position Standing Evaluation View posterior, anterior, lateral Head/C-Spine Posture Flexed T-Spine Posture Increased Kyphosis L-Spine Posture Increased Lordosis Shoulder Posture (L) Rounded,(R) Rounded,(L) Forward,(R) Forward Scapula Posture (L) Protracted,(R) Protracted Pelvis Posture Anteriorly Tilted Weight Distribution Balanced PT-OP-K Range of Motion Start: 06/10/23 14:10 Freq: Status: Active Protocol: Document 06/10/23 15:30 NM (Rec: 06/10/23 16:36 NM [id number]) Cervical Spine Range of Motion Cervical Spine Active Degrees Testing Position Sitting Flexion 60 Extension 30 Rotation Left 72 Rotation Right 60 Lateral Flexion Left 15 Lateral Flexion Right 20 Comments Thoracic Spine: -Flexion = 20 deg -Extension = 10 deg -R Lateral flexion = 10 deg -L lateral flexion = 10 deg -R rotation = 7 cm -L rotation = 6 cm No pain with movements Shoulder Goniometric Range of Motion Shoulder ROM Limitations Shoulder ROM Limitations Soft Tissue Tightness Comments General mobility screen performed due to time constraints: limited shoulder flexion and abduction (~150 deg); all remaining motions WFL PT-OP-M Strength Start: 06/10/23 14:10 Freq: Status: Active Protocol: Document 06/10/23 15:30 NM (Rec: 06/10/23 16:36 NM [id number]) Trunk Strength Trunk Manual Muscle Testing Testing Position Sitting Flexion 3+ Fair+ Extension 3+ Fair+ Rotation Left 3+ Fair+ Rotation Right 3+ Fair+ Lateral Flexion Left 3+ Fair+ Lateral Flexion Right 3+ Fair+ Core Stabilization Minimal - demos difficulty with stabilization and sway with resistance PT-OP-Q Treatments Start: 06/10/23 14:10 Freq: Status: Active Protocol: Document 06/29/23 14:06 NM (Rec: 06/29/23 14:30 NM [id number]) Cardio Equipment Recumbent Elliptical ([employer]) Duration (Minutes) 5 Resistance 5 Seat Position 9 Other leg only, warm up Therapeutic Exercises Supine Exercises Foam Roller Supine Exercise Name 1. Pec stretch, 2. Snow angels , 3. Thoracic ext Side bilateral Equipment Used half foam roller Reps/Minutes 1. 2x30, 2. 2x10, 3. 2x30 LTR Side bilateral Reps/Minutes 60 Comments for lumbar mobility Sidelying Exercises Open Books Sidelying Exercise Name for thoracic mobility Side bilateral Reps/Minutes 2x10 Comments cues for eyes to follow hands, rotate hips Standing Exercises Shoulder extension Standing Exercise Name straight arm entire ROM Side bilateral Resistance green tb (lvl3) Reps/Minutes 2x10 Comments cues to keep hands next to body Lat pull down Side bilateral Resistance orange tb Reps/Minutes 2x10 Comments cues for chin retraction; better tolerance today Row Standing Exercise Name 1. mid row, 2. high row Side bilateral Equipment Used green tb (lvl 3) Reps/Minutes 2x10 Comments cues for chin retraction, scap retraction PT-OP-T Assessment and Plan Start: 06/10/23 14:10 Freq: Status: Active Protocol: Document 06/29/23 14:06 NM (Rec: 06/29/23 14:30 NM [id number]) Physical Therapy Assessment Rehab Potential Rehabilitation Potential Good Evaluation Complexity Number of Personal Factors/Comorbidities 3 or More Number of Body Systems Impaired 3 Clinical Presentation at Evaluation Evolving Impairments Impairments Activity Tolerance,Balance, Coordination,Functional Activities,Functional Mobility ,Gait,Pain,Posture,ROM,Soft Tissue Mobility,Strength Other Concerns Fall Risk Moderate fall risk per Tinetti () Age Related Concerns Pt has hx of thyroiditis, eye problems, and wears hearing aids > reads lips Barriers to Rehabilitation Changes to cancer dx and treatment Goals Five Impairment strength Impairment trunk strength globally 3+/5 Short Term Goal (STG) Pt will improve global trunk strength to at least 4-/5 demonstrating good core activation strategies in order to stabilize spine effectively during gait, standing, lifting, and for activity tolerance. STG Duration 3 weeks Administrative Services Assistant Goal (LTG) Pt will improve global trunk strength to at least 4/5 demonstrating good core activation strategies in order to stabilize spine effectively during gait, standing, lifting, and for improved activity tolerance. LTG Duration 6 weeks Four Impairment function, safety Impairment increased risk of compression fractures Short Term Goal (STG) Pt will verbalize at least 3 strategies for good body mechanics during lifting or carrying objects in order to decrease risk of compression fractures, improve safety during ADLs, and create new functional strategies to be able to perform ADLs. STG Duration 3 weeks Administrative Services Assistant Goal (LTG) Pt will be able to verbalize and successfully demonstrate at least 3 strategies during lifting or carrying objects in order to decrease risk of compression fractures, improve safety during ADLs, and to create new functional strategies to be able to perform ADLs. LTG Duration 6 weeks Three Impairment ROM Impairment Thoracic ROM limited: flex (20 deg), ext (10 deg), B lateral flex (10 deg) Senior Living Goal (LTG) Pt will improve his thoracic ROM by at least 3-5 degrees to decrease trunk stiffness, improve posture, and increase functional mobility in order to perform ADLs. LTG Duration 6 weeks Two Impairment balance, function, safety Impairment Tinetti test score 22/ ( moderate fall risk) Short Term Goal (STG) Pt will increase his Tinetti score by at least 2 points in order to move from the moderate fall risk category to low fall risk category in order to decrease fall risk and caregiver burden. STG Duration 3 weeks Senior Living Goal (LTG) Pt will increase his Tinetti score by 2 or more points in order to move to the low fall risk category in order to demonstrate safety during ambulation in addition to decrease fall risk and caregiver burden. LTG Duration 6 weeks One Impairment function, gait, endurance Impairment 6 MWT distance = 1282 ft (390m ) Norm for age = 527 m Short Term Goal (STG) Pt will improve 6 MWT by at least 50 m (MCID) in order to demonstrate improved endurance , strength, and balance. STG Duration 3 weeks Senior Living Goal (LTG) Pt will improve 6 MWT by at least 100 m in order to be within 50 m (1 MCID) of age- related norms in order to demonstrate improved endurance , activity tolerance, and BLE strength. LTG Duration 6 weeks Assessment Summary Assessment Pt tolerated treatment well and demos improved thoracic mobility. Tmt focus today on total spine mobility and opening chest to decrease stiffness, promote thoracic extension to prevent kyphotic posture. Progressed periscapular theraband resistance exercises to encourage better thoracic extension and promote upright posture; pt demos improved tolerance for exercise and better scapular mechanics than in previous sessions. Will continue to progress trunk strengthening as tolerated and add further core/postural strengthening. Pt issued HEP with open books, row, high row , shoulder ext, foam roller pec stretch, foam roller thoracic ext, and snow angels. Pt would benefit from skilled PT to address impairments in posture, scapular/trunk strength, core strength, and endurance to improve activity tolerance, postural stability, and to decrease risk of compression fracture. Physical Therapy Plan Frequency and Duration Frequency of Treatment 2x/Week Duration of treatment (weeks) 6 Plan of Care Start Date 06/10/23 Plan of Care End Date 07/22/23 Therapeutic Interventions Therapeutic Interventions Balance Training,Coordination Training,Gait Training,Home Exercise Program,Neuromuscular Re-education,Patient/ Caregiver Education,Soft Tissue Mobilization,Taping, Therapeutic Activities, Therapeutic Exercises Modalities Cold Pack/Ice Massage,Electric Stimulation,Hot Packs Other Referrals/Consults Referrals/Consults Recommended Pt reports experiencing vision difficulties related to prior condition, instructed to make appt with hat sprayer Next Visit Focus/Plan Next Note Type Treatment Note Next Visit Plan Progress trunk and BLE strengthening functionally. Promote scap retraction and core; possibly hip hinge. Continue postural and safety education
--- NOTE | 2023-07-06 15:48 | PT.OTN ---
Current Diagnoses Weakness (07/06/23) Wedge compression fracture of unspecified thoracic vertebra, subsequent encounter for fracture with routine healing (07/06/23) Physical Therapy Treatment Note PT-OP-A Visit Information Start: 06/10/23 14:10 Freq: Status: Active Protocol: Document 07/06/23 13:05 NM (Rec: 07/06/23 13:48 NM [id number]) Out-Patient Physical Therapy Visit Information Visit Information Visit Type Treatment Note Visit Start Time 13:01 Visit Stop Time 13:45 Total Visit Minutes 44 Visit Number 5 Evaluation Information Evaluation Date 06/10/23 Precautions Precautions Hx of metastatic cancer: no spinal manipulations or spinal mobilizations Current and Hx of thoracic compression wedge fracture: limit spinal flexion especially loaded PT-OP-B Current Condition Start: 06/10/23 14:10 Freq: Status: Active Protocol: Document 06/10/23 15:30 NM (Rec: 06/10/23 16:36 NM [id number]) Current Condition History of Current Condition Onset Date January 2023 Current Complaints low back and mid back pain, weakness, poor endurance for activity and gait History of Current Condition Pt presents to clinic with mild thoracic and low back pain s/p a wedge compression fracture that occurred in January 2023. Pt was performing yard work (weed eater and leaf blower) when he felt a severe, sharp pain in the middle of his back that did not resolve. He had extreme difficulty walking, sitting, standing, and performing his ADLs. He followed up with Dr. Carmen, who ordered xrays, CT, and MRIs to determine the cause. Imaging revealed a stable compression wedge fracture at T7; he has a former T5 compression fracture. Pt was not given a brace but has been limiting his activity. At this time, he rarely has any thoracic spine pain. 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 He lives with his . Pt reports being active around the house, but has decreased energy overall. At the time of evaluation, pt has most difficulty with endurance, strength, posture, and performing ADLs. Prior Treatments and Tests Hx of L AMY (1999) Imaging results (03/20/23): MRI - T7 compression fracture with 50% height loss, no retropulsion, no cord compression; old T5 compression fracture. Stable. No sign of metastasis Treatment Goals Patient/Caregiver Goals Become stronger and more active Prior Functional Status Baseline Function- ADL's Independent Baseline Function- Mobility Independent Baseline Function- Gait walked about 1 mile/day Baseline Function- Recreation/Hobbies able to perform yard work, ADLs Personal Factors Other Personal Factors That May Effect Pt is currently receiving oral Therapy/Recovery chemo for prostate cancer, but reports that his blood markers are showing improvement. PT-OP-C Subjective Start: 06/10/23 14:10 Freq: Status: Active Protocol: Document 07/06/23 13:05 NM (Rec: 07/06/23 13:48 NM [id number]) OP-PT Subjective Patient Comments Patient Comments Pt reports that his lower back is hurting today but it is 1/ 10 (nothing out of ordinary). He has been compliant with his HEP. PT-OP-D Balance Start: 06/10/23 14:10 Freq: Status: Active Protocol: Document 06/10/23 15:30 NM (Rec: 06/10/23 16:36 NM [id number]) OP-PT Balance Assessment Sitting Balance Static Sitting Balance Ability Normal Dynamic Sitting Balance Ability Normal Standing Balance Static Standing Balance Ability Good Dynamic Standing Balance Ability Fair Device Used none Tinetti Balance Assessment Sitting Balance Sitting Balance Steady, safe Arising from Chair Ability to Arise Able, w/o using arms Attempts to Arise Arises on 1st attempt Standing Balance Immediate Standing Balance Steady w/o support Standing Balance Narrow stance w/o support Nudged Response Staggers, catches self Standing with Eyes Closed Unsteady Turning Step Pattern Turning 360 Degrees Continuous steps Stability Turning 360 Degrees Unsteady, grabs/staggers Sitting Down Sitting Down Uses arms or unsteady Gait and Step Initiation of Gait No hesitancy Right Foot Step Length Does pass stance foot Right Foot Step Height Completely clears floor Left Foot Step Length Does pass stance foot Left Foot Step Height Completely clears floor Step Description Step Symmetry Step length appears equal Step Continuity Steps appear continuous Gait Description Path Description Mild/moderate deviation Trunk Description No sway Walking Stance Heels apart Scoring and Interpretation Tinetti Composite Score (points) 22 Interpretation of Scores At risk for falls (19-24) Tinetti Impairment Rating from Composite 1 to <20% Impaired (Score 23- Score 27) Adkins Fall Scale Copyright Permission PT-OP-E Functional Tests Start: 06/10/23 14:10 Freq: Status: Active Protocol: Document 06/10/23 15:30 NM (Rec: 06/10/23 16:36 NM [id number]) Functional Tests 6 Minute Walk Test Distance 1282 ft Device Used none Comments 390 m (below age norm), reports this walk is tiring Five Times Sit to Stand Test Score 15.38 s Comments no hands used PT-OP-F Manual Assessment Start: 06/10/23 14:10 Freq: Status: Active Protocol: Document 06/10/23 15:30 NM (Rec: 06/10/23 16:36 NM [id number]) Manual Assessments Joint Mobility Assessment Joint Mobility Assessment Thoracic spine individual joint not assessed due to fracture hx and risk PT-OP-G Mobility & Gait Start: 06/10/23 14:10 Freq: Status: Active Protocol: Document 06/10/23 15:30 NM (Rec: 06/10/23 16:36 NM [id number]) OP Gait Assessment Gait Gait Assistance Required: Independent Factors Limiting Gait Function Factors Limiting Gait Function Decreased Activity Tolerance, Decreased Strength PT-OP-H Neuro Start: 06/10/23 14:10 Freq: Status: Active Protocol: Document 06/10/23 15:30 NM (Rec: 06/10/23 16:36 NM [id number]) Sensation Evaluation Gross Sensation Gross Sensation WNL Coordination Evaluation Comments Coordination Comments C5-T12 dermatomes intact to light touch Deep Tendon Reflex & Clonus Assessment Deep Tendon Reflex Bilateral Bicep Deep Tendon Reflex 1+ Diminished PT-OP-J Posture/Palpation/Skin Start: 06/10/23 14:10 Freq: Status: Active Protocol: Document 06/10/23 15:30 NM (Rec: 06/10/23 16:36 NM [id number]) Posture Evaluation Position Standing Evaluation View posterior, anterior, lateral Head/C-Spine Posture Flexed T-Spine Posture Increased Kyphosis L-Spine Posture Increased Lordosis Shoulder Posture (L) Rounded,(R) Rounded,(L) Forward,(R) Forward Scapula Posture (L) Protracted,(R) Protracted Pelvis Posture Anteriorly Tilted Weight Distribution Balanced PT-OP-K Range of Motion Start: 06/10/23 14:10 Freq: Status: Active Protocol: Document 06/10/23 15:30 NM (Rec: 06/10/23 16:36 NM [id number]) Cervical Spine Range of Motion Cervical Spine Active Degrees Testing Position Sitting Flexion 60 Extension 30 Rotation Left 72 Rotation Right 60 Lateral Flexion Left 15 Lateral Flexion Right 20 Comments Thoracic Spine: -Flexion = 20 deg -Extension = 10 deg -R Lateral flexion = 10 deg -L lateral flexion = 10 deg -R rotation = 7 cm -L rotation = 6 cm No pain with movements Shoulder Goniometric Range of Motion Shoulder ROM Limitations Shoulder ROM Limitations Soft Tissue Tightness Comments General mobility screen performed due to time constraints: limited shoulder flexion and abduction (~150 deg); all remaining motions WFL PT-OP-M Strength Start: 06/10/23 14:10 Freq: Status: Active Protocol: Document 06/10/23 15:30 NM (Rec: 06/10/23 16:36 NM [id number]) Trunk Strength Trunk Manual Muscle Testing Testing Position Sitting Flexion 3+ Fair+ Extension 3+ Fair+ Rotation Left 3+ Fair+ Rotation Right 3+ Fair+ Lateral Flexion Left 3+ Fair+ Lateral Flexion Right 3+ Fair+ Core Stabilization Minimal - demos difficulty with stabilization and sway with resistance PT-OP-Q Treatments Start: 06/10/23 14:10 Freq: Status: Active Protocol: Document 07/06/23 13:05 NM (Rec: 07/06/23 13:48 NM [id number]) Cardio Equipment Recumbent Elliptical ([employer]) Duration (Minutes) 5 Resistance 5 Seat Position 9 Other leg only Therapeutic Exercises Supine Exercises Foam Roller I's/T's Supine Exercise Name 1. I's, 2. T's Side bilateral Resistance 1# db Reps/Minutes 2x10 Comments cues for breathing, correct execution Foam Roller Supine Exercise Name 1. pec stretch, 2. foam roller Side bilateral Equipment Used 1/2 foam roller Reps/Minutes 1. x60, 2. 2x15 Prone Exercises Hip ext Prone Exercise Name for low back ext, glute strength Side bilateral Reps/Minutes 1x10 Comments progress to standing next time , cues to breathe Other Exercises Hinge Other Exercise Name with slight knee flex, for lifting mechanics Side bilateral Resistance 5# db Equipment Used 1. no weight 2. 5# db Reps/Minutes 2x10 -limited by wall Comments cues for upright posture, progress to p/u off floor Neuro Re-Education Treatment Balance Activities Step taps Details 6 step Surface stable Reps/Duration 30 ea side Comments Alt step taps without UE support; demos mild sway, able to self correct if LOB. Requires cues for upright posture, foot clearance to prevent toe drag on steps Self-Care/Home Management Treatment Education Patient Education Body Mechanics,Posture,Safety Other Education Lifting mechanics (from height , from floor) using hinge & squat, upright posture with demonstrations. Carrying (front) mechanics for safety, postural control. PT-OP-T Assessment and Plan Start: 06/10/23 14:10 Freq: Status: Active Protocol: Document 07/06/23 13:05 NM (Rec: 07/06/23 13:48 NM [id number]) Physical Therapy Assessment Rehab Potential Rehabilitation Potential Good Evaluation Complexity Number of Personal Factors/Comorbidities 3 or More Number of Body Systems Impaired 3 Clinical Presentation at Evaluation Evolving Impairments Impairments Activity Tolerance,Balance, Coordination,Functional Activities,Functional Mobility ,Gait,Pain,Posture,ROM,Soft Tissue Mobility,Strength Other Concerns Fall Risk Moderate fall risk per Tinetti () Age Related Concerns Pt has hx of thyroiditis, eye problems, and wears hearing aids > reads lips Barriers to Rehabilitation Changes to cancer dx and treatment Goals Five Impairment strength Impairment trunk strength globally 3+/5 Short Term Goal (STG) Pt will improve global trunk strength to at least 4-/5 demonstrating good core activation strategies in order to stabilize spine effectively during gait, standing, lifting, and for activity tolerance. STG Duration 3 weeks Skilled Nursing Goal (LTG) Pt will improve global trunk strength to at least 4/5 demonstrating good core activation strategies in order to stabilize spine effectively during gait, standing, lifting, and for improved activity tolerance. LTG Duration 6 weeks Four Impairment function, safety Impairment increased risk of compression fractures Short Term Goal (STG) Pt will verbalize at least 3 strategies for good body mechanics during lifting or carrying objects in order to decrease risk of compression fractures, improve safety during ADLs, and create new functional strategies to be able to perform ADLs. STG Duration 3 weeks MET 07/06/23 Cartridge Filler Goal (LTG) Pt will be able to verbalize and successfully demonstrate at least 3 strategies during lifting or carrying objects in order to decrease risk of compression fractures, improve safety during ADLs, and to create new functional strategies to be able to perform ADLs. LTG Duration 6 weeks Three Impairment ROM Impairment Thoracic ROM limited: flex (20 deg), ext (10 deg), B lateral flex (10 deg) Skilled Nursing Goal (LTG) Pt will improve his thoracic ROM by at least 3-5 degrees to decrease trunk stiffness, improve posture, and increase functional mobility in order to perform ADLs. LTG Duration 6 weeks Two Impairment balance, function, safety Impairment Tinetti test score 22/28 ( moderate fall risk) Short Term Goal (STG) Pt will increase his Tinetti score by at least 2 points in order to move from the moderate fall risk category to low fall risk category in order to decrease fall risk and caregiver burden. STG Duration 3 weeks Skilled Nursing Goal (LTG) Pt will increase his Tinetti score by 2 or more points in order to move to the low fall risk category in order to demonstrate safety during ambulation in addition to decrease fall risk and caregiver burden. LTG Duration 6 weeks One Impairment function, gait, endurance Impairment 6 MWT distance = 1282 ft (390m ) Norm for age = 527 m Short Term Goal (STG) Pt will improve 6 MWT by at least 50 m (MCID) in order to demonstrate improved endurance , strength, and balance. STG Duration 3 weeks Cartridge Filler Goal (LTG) Pt will improve 6 MWT by at least 100 m in order to be within 50 m (1 MCID) of age- related norms in order to demonstrate improved endurance , activity tolerance, and BLE strength. LTG Duration 6 weeks Assessment Summary Assessment Pt tolerated treatment well. Session focus today on continued thoracic/low back strengthening. Supine thoracic ext exercises to promote improved thoracic ROM, posture and decrease trunk flex. Initiated hip hinge with small knee flex as part of lifting mechanics education and practice. Education provided on safety during lifting, carrying, body mechanics to prevent excess spinal flex to prevent fracture. Pt able to verbalize at least 3 strategies for improved mechanics. Will initiate balance training as part of next session and focus more on postural education as well. Pt would benefit from skilled PT to address trunk/core strengthening, trunk ROM, education during lifting/ carrying, and balance, in order to decrease fall risk, decrease fracture risk, and return to PLOF. Physical Therapy Plan Frequency and Duration Frequency of Treatment 2x/Week Duration of treatment (weeks) 6 Plan of Care Start Date 06/10/23 Plan of Care End Date 07/22/23 Therapeutic Interventions Therapeutic Interventions Balance Training,Coordination Training,Gait Training,Home Exercise Program,Neuromuscular Re-education,Patient/ Caregiver Education,Soft Tissue Mobilization,Taping, Therapeutic Activities, Therapeutic Exercises Modalities Cold Pack/Ice Massage,Electric Stimulation,Hot Packs Other Referrals/Consults Referrals/Consults Recommended Pt reports experiencing vision difficulties related to prior condition, instructed to make appt with orthopaedic doctor Next Visit Focus/Plan Next Note Type Treatment Note Next Visit Plan Progress trunk and BLE strengthening functionally, hip hinge. Strengthen trunk posture muscles. Balance training. Continue postural and safety education maddy with lifting/carrying
--- NOTE | 2023-07-08 15:50 | PT.OTN ---
Current Diagnoses Weakness (07/08/23) Wedge compression fracture of unspecified thoracic vertebra, subsequent encounter for fracture with routine healing (07/08/23) Physical Therapy Treatment Note PT-OP-A Visit Information Start: 06/10/23 14:10 Freq: Status: Active Protocol: Document 07/08/23 13:03 NM (Rec: 07/08/23 13:46 NM [id number]) Out-Patient Physical Therapy Visit Information Visit Information Visit Type Treatment Note Visit Note PN next time Visit Start Time 13:04 Visit Stop Time 13:45 Total Visit Minutes 41 Visit Number 6 Evaluation Information Evaluation Date 06/10/23 Precautions Precautions Hx of metastatic cancer: no spinal manipulations or spinal mobilizations Current and Hx of thoracic compression wedge fracture: limit spinal flexion especially loaded PT-OP-B Current Condition Start: 06/10/23 14:10 Freq: Status: Active Protocol: Document 06/10/23 15:30 NM (Rec: 06/10/23 16:36 NM [id number]) Current Condition History of Current Condition Onset Date January 2023 Current Complaints low back and mid back pain, weakness, poor endurance for activity and gait History of Current Condition Pt presents to clinic with mild thoracic and low back pain s/p a wedge compression fracture that occurred in January 2023. Pt was performing yard work (weed eater and leaf blower) when he felt a severe, sharp pain in the middle of his back that did not resolve. He had extreme difficulty walking, sitting, standing, and performing his ADLs. He followed up with Dr. Carmen, who ordered xrays, CT, and MRIs to determine the cause. Imaging revealed a stable compression wedge fracture at T7; he has a former T5 compression fracture. Pt was not given a brace but has been limiting his activity. At this time, he rarely has any thoracic spine pain. 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 He lives with his . Pt reports being active around the house, but has decreased energy overall. At the time of evaluation, pt has most difficulty with endurance, strength, posture, and performing ADLs. Prior Treatments and Tests Hx of L AMY (1999) Imaging results (03/20/23): MRI - T7 compression fracture with 50% height loss, no retropulsion, no cord compression; old T5 compression fracture. Stable. No sign of metastasis Treatment Goals Patient/Caregiver Goals Become stronger and more active Prior Functional Status Baseline Function- ADL's Independent Baseline Function- Mobility Independent Baseline Function- Gait walked about 1 mile/day Baseline Function- Recreation/Hobbies able to perform yard work, ADLs Personal Factors Other Personal Factors That May Effect Pt is currently receiving oral Therapy/Recovery chemo for prostate cancer, but reports that his blood markers are showing improvement. PT-OP-C Subjective Start: 06/10/23 14:10 Freq: Status: Active Protocol: Document 07/08/23 13:03 NM (Rec: 07/08/23 13:46 NM [id number]) OP-PT Subjective Patient Comments Patient Comments Pt reports that his chest is a little sore from stretching last session. He has been compliant with his exercises. Only 1/10 low back pain. Patient Reported Progress Improving PT-OP-D Balance Start: 06/10/23 14:10 Freq: Status: Active Protocol: Document 06/10/23 15:30 NM (Rec: 06/10/23 16:36 NM [id number]) OP-PT Balance Assessment Sitting Balance Static Sitting Balance Ability Normal Dynamic Sitting Balance Ability Normal Standing Balance Static Standing Balance Ability Good Dynamic Standing Balance Ability Fair Device Used none Tinetti Balance Assessment Sitting Balance Sitting Balance Steady, safe Arising from Chair Ability to Arise Able, w/o using arms Attempts to Arise Arises on 1st attempt Standing Balance Immediate Standing Balance Steady w/o support Standing Balance Narrow stance w/o support Nudged Response Staggers, catches self Standing with Eyes Closed Unsteady Turning Step Pattern Turning 360 Degrees Continuous steps Stability Turning 360 Degrees Unsteady, grabs/staggers Sitting Down Sitting Down Uses arms or unsteady Gait and Step Initiation of Gait No hesitancy Right Foot Step Length Does pass stance foot Right Foot Step Height Completely clears floor Left Foot Step Length Does pass stance foot Left Foot Step Height Completely clears floor Step Description Step Symmetry Step length appears equal Step Continuity Steps appear continuous Gait Description Path Description Mild/moderate deviation Trunk Description No sway Walking Stance Heels apart Scoring and Interpretation Tinetti Composite Score (points) 22 Interpretation of Scores At risk for falls (19-24) Tinetti Impairment Rating from Composite 1 to <20% Impaired (Score 23- Score 27) Adkins Fall Scale Copyright Permission PT-OP-E Functional Tests Start: 06/10/23 14:10 Freq: Status: Active Protocol: Document 06/10/23 15:30 NM (Rec: 06/10/23 16:36 NM [id number]) Functional Tests 6 Minute Walk Test Distance 1282 ft Device Used none Comments 390 m (below age norm), reports this walk is tiring Five Times Sit to Stand Test Score 15.38 s Comments no hands used PT-OP-F Manual Assessment Start: 06/10/23 14:10 Freq: Status: Active Protocol: Document 06/10/23 15:30 NM (Rec: 06/10/23 16:36 NM [id number]) Manual Assessments Joint Mobility Assessment Joint Mobility Assessment Thoracic spine individual joint not assessed due to fracture hx and risk PT-OP-G Mobility & Gait Start: 06/10/23 14:10 Freq: Status: Active Protocol: Document 06/10/23 15:30 NM (Rec: 06/10/23 16:36 NM [id number]) OP Gait Assessment Gait Gait Assistance Required: Independent Factors Limiting Gait Function Factors Limiting Gait Function Decreased Activity Tolerance, Decreased Strength PT-OP-H Neuro Start: 06/10/23 14:10 Freq: Status: Active Protocol: Document 06/10/23 15:30 NM (Rec: 06/10/23 16:36 NM [id number]) Sensation Evaluation Gross Sensation Gross Sensation WNL Coordination Evaluation Comments Coordination Comments C5-T12 dermatomes intact to light touch Deep Tendon Reflex & Clonus Assessment Deep Tendon Reflex Bilateral Bicep Deep Tendon Reflex 1+ Diminished PT-OP-J Posture/Palpation/Skin Start: 06/10/23 14:10 Freq: Status: Active Protocol: Document 06/10/23 15:30 NM (Rec: 06/10/23 16:36 NM [id number]) Posture Evaluation Position Standing Evaluation View posterior, anterior, lateral Head/C-Spine Posture Flexed T-Spine Posture Increased Kyphosis L-Spine Posture Increased Lordosis Shoulder Posture (L) Rounded,(R) Rounded,(L) Forward,(R) Forward Scapula Posture (L) Protracted,(R) Protracted Pelvis Posture Anteriorly Tilted Weight Distribution Balanced PT-OP-K Range of Motion Start: 06/10/23 14:10 Freq: Status: Active Protocol: Document 06/10/23 15:30 NM (Rec: 06/10/23 16:36 NM [id number]) Cervical Spine Range of Motion Cervical Spine Active Degrees Testing Position Sitting Flexion 60 Extension 30 Rotation Left 72 Rotation Right 60 Lateral Flexion Left 15 Lateral Flexion Right 20 Comments Thoracic Spine: -Flexion = 20 deg -Extension = 10 deg -R Lateral flexion = 10 deg -L lateral flexion = 10 deg -R rotation = 7 cm -L rotation = 6 cm No pain with movements Shoulder Goniometric Range of Motion Shoulder ROM Limitations Shoulder ROM Limitations Soft Tissue Tightness Comments General mobility screen performed due to time constraints: limited shoulder flexion and abduction (~150 deg); all remaining motions WFL PT-OP-M Strength Start: 06/10/23 14:10 Freq: Status: Active Protocol: Document 06/10/23 15:30 NM (Rec: 06/10/23 16:36 NM [id number]) Trunk Strength Trunk Manual Muscle Testing Testing Position Sitting Flexion 3+ Fair+ Extension 3+ Fair+ Rotation Left 3+ Fair+ Rotation Right 3+ Fair+ Lateral Flexion Left 3+ Fair+ Lateral Flexion Right 3+ Fair+ Core Stabilization Minimal - demos difficulty with stabilization and sway with resistance PT-OP-Q Treatments Start: 06/10/23 14:10 Freq: Status: Active Protocol: Document 07/08/23 13:03 NM (Rec: 07/08/23 13:46 NM [id number]) Cardio Equipment Recumbent Elliptical (Q.branch) Duration (Minutes) 5 Resistance 5 Seat Position 9 Other leg only Therapeutic Exercises Supine Exercises Dying bug Supine Exercise Name for core stabilization Equipment Used ruler under back for tactile cue Reps/Minutes 1x10 ea Comments arms only, LE in 90/90 with TA contraction TA activation Supine Exercise Name for core stabilization Equipment Used ruler under low back for tactile cue Reps/Minutes 1x10 with 2-5 second holds Comments cues to breath, demos good control Other Exercises Plank Other Exercise Name modified front plank (hands and knees) Side bilateral Reps/Minutes 2x30 Comments cues to breathe Quadruped Other Exercise Name Cat camel for min spinal flex and extension Side bilateral Reps/Minutes 1x10 Comments bends arms during ext to get more range; cued to limit flex Hinge Other Exercise Name cont next time Squat Side bilateral Resistance 5# db (one) Equipment Used chair behind for target, band around knees to prevent valgus Reps/Minutes 2x10 ea Comments cues for hip flex, chest upright Therapeutic Activity Therapeutic Activity Squat Name to pickle sorter bucket from floor with 5# db inside Reps/Minutes 8 min, reps interspersed Comments Education on safety, body mechanics to squat and pickle sorter weighted objects. Cued for correct execution, limit fwd flex to decrease stress on anterior vertebral bodies, glute activation (~ to sit in a chair). Pt able to correctly execute with mod>min cueing, demonstrating improved form with repetitions. Standing <> Floor transfer Comments performed multiple times during session today Neuro Re-Education Treatment Balance Activities Tinetti Details unscored Surface stable Reps/Duration 1 set ea (~4 min total) Comments 1. turning in a [place] with minimal steps. demos no sway and improved coordination. Multiple reps 2. step taps 3. Standing eyes closed. Able to perform for at least 10 seconds. Multiple reps. To challenge balance and prorioceptive awareness Step taps Details 6 step Surface stable Reps/Duration 60 ea side Comments Alt step taps without UE support; demos mild sway, able to self correct if LOB. Requires cues for upright posture, foot clearance to prevent toe drag on steps. For endurance and balance Self-Care/Home Management Treatment Education Patient Education Body Mechanics,Home Exercise Program,Safety PT-OP-T Assessment and Plan Start: 06/10/23 14:10 Freq: Status: Active Protocol: Document 07/08/23 13:03 NM (Rec: 07/08/23 13:46 NM [id number]) Physical Therapy Assessment Rehab Potential Rehabilitation Potential Good Evaluation Complexity Number of Personal Factors/Comorbidities 3 or More Number of Body Systems Impaired 3 Clinical Presentation at Evaluation Evolving Impairments Impairments Activity Tolerance,Balance, Coordination,Functional Activities,Functional Mobility ,Gait,Pain,Posture,ROM,Soft Tissue Mobility,Strength Other Concerns Fall Risk Moderate fall risk per Tinetti () Age Related Concerns Pt has hx of thyroiditis, eye problems, and wears hearing aids > reads lips Barriers to Rehabilitation Changes to cancer dx and treatment Goals Five Impairment strength Impairment trunk strength globally 3+/5 Short Term Goal (STG) Pt will improve global trunk strength to at least 4-/5 demonstrating good core activation strategies in order to stabilize spine effectively during gait, standing, lifting, and for activity tolerance. STG Duration 3 weeks Longterm Goal (LTG) Pt will improve global trunk strength to at least 4/5 demonstrating good core activation strategies in order to stabilize spine effectively during gait, standing, lifting, and for improved activity tolerance. LTG Duration 6 weeks Four Impairment function, safety Impairment increased risk of compression fractures Short Term Goal (STG) Pt will verbalize at least 3 strategies for good body mechanics during lifting or carrying objects in order to decrease risk of compression fractures, improve safety during ADLs, and create new functional strategies to be able to perform ADLs. STG Duration 3 weeks MET 07/06/23 Longterm Goal (LTG) Pt will be able to verbalize and successfully demonstrate at least 3 strategies during lifting or carrying objects in order to decrease risk of compression fractures, improve safety during ADLs, and to create new functional strategies to be able to perform ADLs. LTG Duration 6 weeks Three Impairment ROM Impairment Thoracic ROM limited: flex (20 deg), ext (10 deg), B lateral flex (10 deg) Longterm Goal (LTG) Pt will improve his thoracic ROM by at least 3-5 degrees to decrease trunk stiffness, improve posture, and increase functional mobility in order to perform ADLs. LTG Duration 6 weeks Two Impairment balance, function, safety Impairment Tinetti test score 22/28 ( moderate fall risk) Short Term Goal (STG) Pt will increase his Tinetti score by at least 2 points in order to move from the moderate fall risk category to low fall risk category in order to decrease fall risk and caregiver burden. STG Duration 3 weeks Longterm Goal (LTG) Pt will increase his Tinetti score by 2 or more points in order to move to the low fall risk category in order to demonstrate safety during ambulation in addition to decrease fall risk and caregiver burden. LTG Duration 6 weeks One Impairment function, gait, endurance Impairment 6 MWT distance = 1282 ft (390m ) Norm for age = 527 m Short Term Goal (STG) Pt will improve 6 MWT by at least 50 m (MCID) in order to demonstrate improved endurance , strength, and balance. STG Duration 3 weeks Longterm Goal (LTG) Pt will improve 6 MWT by at least 100 m in order to be within 50 m (1 MCID) of age- related norms in order to demonstrate improved endurance , activity tolerance, and BLE strength. LTG Duration 6 weeks Assessment Summary Assessment Pt tolerated tmt well. Initiated core stabilization today with transverse abdominis activation and modified planks. Pt requires moderate cues for core activation and tactile cue of ruler under low back to assist with stabilization. He is unable to coordinate dying bugs, so only performed with BUE while maintaining core contraction. Also initiated squats and picking up objects from the floor today in order to educate pt on proper body mechanics when lifting. Pt able to demo correct and safe lifting technique after multiple repetitions; however, will need to review to prevent pt tendency for spinal flex. Pt demos improvements in higher level balance (eyes closed, turning) as part of Tinetti test; will formally assess next session as part of PN. Pt issued HEP with squats , planks, and TA activation. Pt would benefit from skilled intervention to address impairments in trunk/core strength, BLE strength, balance, and body mechanics in order to return to PLOF and for safety to prevent re- injury/decrease fracture risk. Physical Therapy Plan Frequency and Duration Frequency of Treatment 2x/Week Duration of treatment (weeks) 6 Plan of Care Start Date 06/10/23 Plan of Care End Date 07/22/23 Therapeutic Interventions Therapeutic Interventions Balance Training,Coordination Training,Gait Training,Home Exercise Program,Neuromuscular Re-education,Patient/ Caregiver Education,Soft Tissue Mobilization,Taping, Therapeutic Activities, Therapeutic Exercises Modalities Cold Pack/Ice Massage,Electric Stimulation,Hot Packs Other Referrals/Consults Referrals/Consults Recommended Pt reports experiencing vision difficulties related to prior condition, instructed to make appt with rn palliative Next Visit Focus/Plan Next Note Type Progress Note Next Visit Plan Progress trunk and BLE strengthening functionally, hip hinge. Strengthen trunk posture muscles. Balance training. Review postural and safety education maddy with lifting/carrying
--- NOTE | 2023-07-13 17:19 | PT.OTN ---
Current Diagnoses Weakness (07/13/23) Wedge compression fracture of unspecified thoracic vertebra, subsequent encounter for fracture with routine healing (07/13/23) Physical Therapy Treatment Note PT-OP-A Visit Information Start: 06/10/23 14:10 Freq: Status: Active Protocol: Document 07/13/23 13:07 NM (Rec: 07/13/23 13:48 NM [id number]) Out-Patient Physical Therapy Visit Information Visit Information Visit Type Progress Note Visit Start Time 13:00 Visit Stop Time 13:45 Total Visit Minutes 45 Visit Number 7 Evaluation Information Evaluation Date 06/10/23 Precautions Precautions Hx of metastatic cancer: no spinal manipulations or spinal mobilizations Current and Hx of thoracic compression wedge fracture: limit spinal flexion especially loaded PT-OP-B Current Condition Start: 06/10/23 14:10 Freq: Status: Active Protocol: Document 06/10/23 15:30 NM (Rec: 06/10/23 16:36 NM [id number]) Current Condition History of Current Condition Onset Date January 2023 Current Complaints low back and mid back pain, weakness, poor endurance for activity and gait History of Current Condition Pt presents to clinic with mild thoracic and low back pain s/p a wedge compression fracture that occurred in January 2023. Pt was performing yard work (weed eater and leaf blower) when he felt a severe, sharp pain in the middle of his back that did not resolve. He had extreme difficulty walking, sitting, standing, and performing his ADLs. He followed up with Dr. Carmen, who ordered xrays, CT, and MRIs to determine the cause. Imaging revealed a stable compression wedge fracture at T7; he has a former T5 compression fracture. Pt was not given a brace but has been limiting his activity. At this time, he rarely has any thoracic spine pain. 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 He lives with his . Pt reports being active around the house, but has decreased energy overall. At the time of evaluation, pt has most difficulty with endurance, strength, posture, and performing ADLs. Prior Treatments and Tests Hx of L AMY (1999) Imaging results (03/20/23): MRI - T7 compression fracture with 50% height loss, no retropulsion, no cord compression; old T5 compression fracture. Stable. No sign of metastasis Treatment Goals Patient/Caregiver Goals Become stronger and more active Prior Functional Status Baseline Function- ADL's Independent Baseline Function- Mobility Independent Baseline Function- Gait walked about 1 mile/day Baseline Function- Recreation/Hobbies able to perform yard work, ADLs Personal Factors Other Personal Factors That May Effect Pt is currently receiving oral Therapy/Recovery chemo for prostate cancer, but reports that his blood markers are showing improvement. PT-OP-C Subjective Start: 06/10/23 14:10 Freq: Status: Active Protocol: Document 07/13/23 13:07 NM (Rec: 07/13/23 13:48 NM [id number]) OP-PT Subjective Patient Comments Patient Comments Pt reports that his legs are sore from last session. He reports that he has shoulder blade soreness from hauling trash yesterday. He also reports that his back and legs feel stronger than when they did at [facility]. He wants to make sure that his back is strong. His low back pain (1-09/11) is his most concerning area. PT-OP-D Balance Start: 06/10/23 14:10 Freq: Status: Active Protocol: Document 06/10/23 15:30 NM (Rec: 06/10/23 16:36 NM [id number]) OP-PT Balance Assessment Sitting Balance Static Sitting Balance Ability Normal Dynamic Sitting Balance Ability Normal Standing Balance Static Standing Balance Ability Good Dynamic Standing Balance Ability Fair Device Used none Tinetti Balance Assessment Sitting Balance Sitting Balance Steady, safe Arising from Chair Ability to Arise Able, w/o using arms Attempts to Arise Arises on 1st attempt Standing Balance Immediate Standing Balance Steady w/o support Standing Balance Narrow stance w/o support Nudged Response Staggers, catches self Standing with Eyes Closed Unsteady Turning Step Pattern Turning 360 Degrees Continuous steps Stability Turning 360 Degrees Unsteady, grabs/staggers Sitting Down Sitting Down Uses arms or unsteady Gait and Step Initiation of Gait No hesitancy Right Foot Step Length Does pass stance foot Right Foot Step Height Completely clears floor Left Foot Step Length Does pass stance foot Left Foot Step Height Completely clears floor Step Description Step Symmetry Step length appears equal Step Continuity Steps appear continuous Gait Description Path Description Mild/moderate deviation Trunk Description No sway Walking Stance Heels apart Scoring and Interpretation Tinetti Composite Score (points) 22 Interpretation of Scores At risk for falls (19-24) Tinetti Impairment Rating from Composite 1 to <20% Impaired (Score 23- Score 27) Adkins Fall Scale Copyright Permission PT-OP-E Functional Tests Start: 06/10/23 14:10 Freq: Status: Active Protocol: Document 06/10/23 15:30 NM (Rec: 06/10/23 16:36 NM [id number]) Functional Tests 6 Minute Walk Test Distance 1282 ft Device Used none Comments 390 m (below age norm), reports this walk is tiring Five Times Sit to Stand Test Score 15.38 s Comments no hands used PT-OP-F Manual Assessment Start: 06/10/23 14:10 Freq: Status: Active Protocol: Document 06/10/23 15:30 NM (Rec: 06/10/23 16:36 NM [id number]) Manual Assessments Joint Mobility Assessment Joint Mobility Assessment Thoracic spine individual joint not assessed due to fracture hx and risk PT-OP-G Mobility & Gait Start: 06/10/23 14:10 Freq: Status: Active Protocol: Document 06/10/23 15:30 NM (Rec: 06/10/23 16:36 NM [id number]) OP Gait Assessment Gait Gait Assistance Required: Independent Factors Limiting Gait Function Factors Limiting Gait Function Decreased Activity Tolerance, Decreased Strength PT-OP-H Neuro Start: 06/10/23 14:10 Freq: Status: Active Protocol: Document 06/10/23 15:30 NM (Rec: 06/10/23 16:36 NM [id number]) Sensation Evaluation Gross Sensation Gross Sensation WNL Coordination Evaluation Comments Coordination Comments C5-T12 dermatomes intact to light touch Deep Tendon Reflex & Clonus Assessment Deep Tendon Reflex Bilateral Bicep Deep Tendon Reflex 1+ Diminished PT-OP-J Posture/Palpation/Skin Start: 06/10/23 14:10 Freq: Status: Active Protocol: Document 06/10/23 15:30 NM (Rec: 06/10/23 16:36 NM [id number]) Posture Evaluation Position Standing Evaluation View posterior, anterior, lateral Head/C-Spine Posture Flexed T-Spine Posture Increased Kyphosis L-Spine Posture Increased Lordosis Shoulder Posture (L) Rounded,(R) Rounded,(L) Forward,(R) Forward Scapula Posture (L) Protracted,(R) Protracted Pelvis Posture Anteriorly Tilted Weight Distribution Balanced PT-OP-K Range of Motion Start: 06/10/23 14:10 Freq: Status: Active Protocol: Document 06/10/23 15:30 NM (Rec: 06/10/23 16:36 NM [id number]) Cervical Spine Range of Motion Cervical Spine Active Degrees Testing Position Sitting Flexion 60 Extension 30 Rotation Left 72 Rotation Right 60 Lateral Flexion Left 15 Lateral Flexion Right 20 Comments Thoracic Spine: -Flexion = 20 deg -Extension = 10 deg -R Lateral flexion = 10 deg -L lateral flexion = 10 deg -R rotation = 7 cm -L rotation = 6 cm No pain with movements Shoulder Goniometric Range of Motion Shoulder ROM Limitations Shoulder ROM Limitations Soft Tissue Tightness Comments General mobility screen performed due to time constraints: limited shoulder flexion and abduction (~150 deg); all remaining motions WFL PT-OP-M Strength Start: 06/10/23 14:10 Freq: Status: Active Protocol: Document 06/10/23 15:30 NM (Rec: 06/10/23 16:36 NM [id number]) Trunk Strength Trunk Manual Muscle Testing Testing Position Sitting Flexion 3+ Fair+ Extension 3+ Fair+ Rotation Left 3+ Fair+ Rotation Right 3+ Fair+ Lateral Flexion Left 3+ Fair+ Lateral Flexion Right 3+ Fair+ Core Stabilization Minimal - demos difficulty with stabilization and sway with resistance PT-OP-Q Treatments Start: 06/10/23 14:10 Freq: Status: Active Protocol: Document 07/13/23 13:07 NM (Rec: 07/13/23 13:48 NM [id number]) Cardio Equipment Recumbent Elliptical (coRank) Duration (Minutes) 8 Resistance 5 Seat Position 9 Other leg only Therapeutic Exercises Prone Exercises Child's pose Prone Exercise Name for low back stretch Side bilateral Reps/Minutes 60 Comments cues to sit back on heels Standing Exercises Pallof press Standing Exercise Name 1. fwd/bwd, 2. up/down Side bilateral Equipment Used lvl 3 tb [place] Reps/Minutes 30 ea facing both directions Comments cues for core contraction, belly button to spine Other Exercises Plank Other Exercise Name full plank Side bilateral Reps/Minutes 30 sec Comments cues to breathe Gait Training Gait Activity 6 MWT Device Used none Level of Assistance IND Surface stable Distance/Duration 1396 ft Treatment Focus endurance Comments 425 m Improvement in distance since IE. Pt demos good gait speed with equal step length, narrow RAINER. Pt able to talk occasionally while ambulating Neuro Re-Education Treatment Balance Activities Tinetti Details Surface stable PT-OP-T Assessment and Plan Start: 06/10/23 14:10 Freq: Status: Active Protocol: Document 07/13/23 13:07 NM (Rec: 07/13/23 13:48 NM [id number]) Physical Therapy Assessment Goals Five Impairment strength Impairment trunk strength globally 3+/5 Short Term Goal (STG) Pt will improve global trunk strength to at least 4-/5 demonstrating good core activation strategies in order to stabilize spine effectively during gait, standing, lifting, and for activity tolerance. STG Duration 3 weeks MET Detention Goal (LTG) Pt will improve global trunk strength to at least 4/5 demonstrating good core activation strategies in order to stabilize spine effectively during gait, standing, lifting, and for improved activity tolerance. 07/13/23: MET able to perform 30 second plank (not modified) and can perform trunk/ abdominal flex MMT with 4/5 score LTG Duration 6 weeks MET Four Impairment function, safety Impairment increased risk of compression fractures Short Term Goal (STG) Pt will verbalize at least 3 strategies for good body mechanics during lifting or carrying objects in order to decrease risk of compression fractures, improve safety during ADLs, and create new functional strategies to be able to perform ADLs. STG Duration 3 weeks MET 07/06/23 Detention Goal (LTG) Pt will be able to verbalize and successfully demonstrate at least 3 strategies during lifting or carrying objects in order to decrease risk of compression fractures, improve safety during ADLs, and to create new functional strategies to be able to perform ADLs. 07/13/23: Able to verbalize 3 strategies and demo 2 strageties successfully (squat to filler picker objects, limit spinal flexion loading) LTG Duration 6 weeks PARTIALLY MET Three Impairment ROM Impairment Thoracic ROM limited: flex (20 deg), ext (10 deg), B lateral flex (10 deg) Detention Goal (LTG) Pt will improve his thoracic ROM by at least 3-5 degrees to decrease trunk stiffness, improve posture, and increase functional mobility in order to perform ADLs. 07/13/23: Pt demos 20 deg thoracic ext, 15 deg B lateral flexion LTG Duration 6 weeks MET Two Impairment balance, function, safety Impairment Tinetti test score 22/28 ( moderate fall risk) Short Term Goal (STG) Pt will increase his Tinetti score by at least 2 points in order to move from the moderate fall risk category to low fall risk category in order to decrease fall risk and caregiver burden. STG Duration 3 weeks Detention Goal (LTG) Pt will increase his Tinetti score by 2 or more points in order to move to the low fall risk category in order to demonstrate safety during ambulation in addition to decrease fall risk and caregiver burden. 07/13/23: MET Tinetti score 28 /28 LTG Duration 6 weeks MET One Impairment function, gait, endurance Impairment 6 MWT distance = 1282 ft (390m ) Norm for age = 527 m Short Term Goal (STG) Pt will improve 6 MWT by at least 50 m (MCID) in order to demonstrate improved endurance , strength, and balance. 07/13/23: 1396 ft (425 m), an increase of 35 m STG Duration 3 weeks NOT MET Real Estate Representative Goal (LTG) Pt will improve 6 MWT by at least 100 m in order to be within 50 m (1 MCID) of age- related norms in order to demonstrate improved endurance , activity tolerance, and BLE strength. LTG Duration 6 weeks NOT MET Progress Towards Goals Progress Towards Goals Progressing Toward Goals,Goals Met Progress Comments Met 3/5 Partially met 1/5 Not met 1/5 Assessment Summary Assessment Pt tolerated tmt well. Progressed to plank and Pallof press for core strengthening against gravity. Pt able to perform pallof press with mod cuing for correct execution. Will continue to progress postural and core strengthening as tolerated in future sessions, and will continue to promote functional ADL-related activities. Pt has been seen in clinic for trunk/core strengthening s/p compression fracture beginning 06/10. Pt is progressing and has met 3/5 goals. He has only not met 1 goal, which is his 6 MWT distance for age-related norms. His thoracic ROM has improved by at leat 5 deg globally. His trunk strength as also improved as pt can now perform a full plank for at leat 30 seconds without compensation and successfully completes the trunk/abdominal MMT with a score of 4/5 (able to clear scapula from table with hands across chest, without LE use). He demos improvements in his 6 MWT distance by 35 m; however, he continues to fatigue easily and is below his age-related norms. Due to his poor endurance, PT and pt discussed beginning an ambulation program today for pt to work toward this goal better. Pt is able to successfully recite and demo 2-3 strategies for good body mechanics, posture while lifting/carrying to limit risk of compression fracture re-injury. He reports that he has minimal difficulty with ADLs and participating recreational activities since beginning PT as he is more aware of his limitations. Pt will likely be ready to discharge to independent home exercise upon end of POC. Pt would benefit from skilled PT to address core strengthening/ stabilization, endurance, postural stabilization, and to improve awareness of body mechanics for safety and to improve activity tolerance. Physical Therapy Plan Frequency and Duration Frequency of Treatment 2x/Week Duration of treatment (weeks) 6 Plan of Care Start Date 06/10/23 Plan of Care End Date 07/22/23 Therapeutic Interventions Therapeutic Interventions Balance Training,Coordination Training,Gait Training,Home Exercise Program,Neuromuscular Re-education,Patient/ Caregiver Education,Soft Tissue Mobilization,Taping, Therapeutic Activities, Therapeutic Exercises Modalities Cold Pack/Ice Massage,Electric Stimulation,Hot Packs Other Referrals/Consults Referrals/Consults Recommended Pt reports experiencing vision difficulties related to prior condition, instructed to make appt with banking representative Next Visit Focus/Plan Next Note Type Treatment Note Next Visit Plan Progress trunk and BLE strengthening functionally, hip hinge. Strengthen trunk posture muscles. Balance training. Review postural and safety education maddy with lifting/carrying
--- NOTE | 2023-07-15 13:46 | PT.OTN ---
Current Diagnoses Weakness (07/15/23) Wedge compression fracture of unspecified thoracic vertebra, subsequent encounter for fracture with routine healing (07/15/23) Physical Therapy Treatment Note PT-OP-A Visit Information Start: 06/10/23 14:10 Freq: Status: Active Protocol: Document 07/15/23 13:05 NM (Rec: 07/15/23 13:46 NM [id number]) Out-Patient Physical Therapy Visit Information Visit Information Visit Type Treatment Note Visit Start Time 13:03 Visit Stop Time 13:45 Total Visit Minutes 42 Visit Number 8 Evaluation Information Evaluation Date 06/10/23 Precautions Precautions Hx of metastatic cancer: no spinal manipulations or spinal mobilizations Current and Hx of thoracic compression wedge fracture: limit spinal flexion especially loaded PT-OP-B Current Condition Start: 06/10/23 14:10 Freq: Status: Active Protocol: Document 06/10/23 15:30 NM (Rec: 06/10/23 16:36 NM [id number]) Current Condition History of Current Condition Onset Date January 2023 Current Complaints low back and mid back pain, weakness, poor endurance for activity and gait History of Current Condition Pt presents to clinic with mild thoracic and low back pain s/p a wedge compression fracture that occurred in January 2023. Pt was performing yard work (weed eater and leaf blower) when he felt a severe, sharp pain in the middle of his back that did not resolve. He had extreme difficulty walking, sitting, standing, and performing his ADLs. He followed up with Dr. Carmen, who ordered xrays, CT, and MRIs to determine the cause. Imaging revealed a stable compression wedge fracture at T7; he has a former T5 compression fracture. Pt was not given a brace but has been limiting his activity. At this time, he rarely has any thoracic spine pain. 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 He lives with his . Pt reports being active around the house, but has decreased energy overall. At the time of evaluation, pt has most difficulty with endurance, strength, posture, and performing ADLs. Prior Treatments and Tests Hx of L AMY (1999) Imaging results (03/20/23): MRI - T7 compression fracture with 50% height loss, no retropulsion, no cord compression; old T5 compression fracture. Stable. No sign of metastasis Treatment Goals Patient/Caregiver Goals Become stronger and more active Prior Functional Status Baseline Function- ADL's Independent Baseline Function- Mobility Independent Baseline Function- Gait walked about 1 mile/day Baseline Function- Recreation/Hobbies able to perform yard work, ADLs Personal Factors Other Personal Factors That May Effect Pt is currently receiving oral Therapy/Recovery chemo for prostate cancer, but reports that his blood markers are showing improvement. PT-OP-C Subjective Start: 06/10/23 14:10 Freq: Status: Active Protocol: Document 07/15/23 13:05 NM (Rec: 07/15/23 13:46 NM [id number]) OP-PT Subjective Patient Comments Patient Comments Pt reports the he has soreness in his R shoulder/chest after last session. However, he reports that he is doing well overall and states that his legs feel stronger. PT-OP-D Balance Start: 06/10/23 14:10 Freq: Status: Active Protocol: Document 06/10/23 15:30 NM (Rec: 06/10/23 16:36 NM [id number]) OP-PT Balance Assessment Sitting Balance Static Sitting Balance Ability Normal Dynamic Sitting Balance Ability Normal Standing Balance Static Standing Balance Ability Good Dynamic Standing Balance Ability Fair Device Used none Tinetti Balance Assessment Sitting Balance Sitting Balance Steady, safe Arising from Chair Ability to Arise Able, w/o using arms Attempts to Arise Arises on 1st attempt Standing Balance Immediate Standing Balance Steady w/o support Standing Balance Narrow stance w/o support Nudged Response Staggers, catches self Standing with Eyes Closed Unsteady Turning Step Pattern Turning 360 Degrees Continuous steps Stability Turning 360 Degrees Unsteady, grabs/staggers Sitting Down Sitting Down Uses arms or unsteady Gait and Step Initiation of Gait No hesitancy Right Foot Step Length Does pass stance foot Right Foot Step Height Completely clears floor Left Foot Step Length Does pass stance foot Left Foot Step Height Completely clears floor Step Description Step Symmetry Step length appears equal Step Continuity Steps appear continuous Gait Description Path Description Mild/moderate deviation Trunk Description No sway Walking Stance Heels apart Scoring and Interpretation Tinetti Composite Score (points) 22 Interpretation of Scores At risk for falls (19-24) Tinetti Impairment Rating from Composite 1 to <20% Impaired (Score 23- Score 27) Adkins Fall Scale Copyright Permission PT-OP-E Functional Tests Start: 06/10/23 14:10 Freq: Status: Active Protocol: Document 06/10/23 15:30 NM (Rec: 06/10/23 16:36 NM [id number]) Functional Tests 6 Minute Walk Test Distance 1282 ft Device Used none Comments 390 m (below age norm), reports this walk is tiring Five Times Sit to Stand Test Score 15.38 s Comments no hands used PT-OP-F Manual Assessment Start: 06/10/23 14:10 Freq: Status: Active Protocol: Document 06/10/23 15:30 NM (Rec: 06/10/23 16:36 NM [id number]) Manual Assessments Joint Mobility Assessment Joint Mobility Assessment Thoracic spine individual joint not assessed due to fracture hx and risk PT-OP-G Mobility & Gait Start: 06/10/23 14:10 Freq: Status: Active Protocol: Document 06/10/23 15:30 NM (Rec: 06/10/23 16:36 NM [id number]) OP Gait Assessment Gait Gait Assistance Required: Independent Factors Limiting Gait Function Factors Limiting Gait Function Decreased Activity Tolerance, Decreased Strength PT-OP-H Neuro Start: 06/10/23 14:10 Freq: Status: Active Protocol: Document 06/10/23 15:30 NM (Rec: 06/10/23 16:36 NM [id number]) Sensation Evaluation Gross Sensation Gross Sensation WNL Coordination Evaluation Comments Coordination Comments C5-T12 dermatomes intact to light touch Deep Tendon Reflex & Clonus Assessment Deep Tendon Reflex Bilateral Bicep Deep Tendon Reflex 1+ Diminished PT-OP-J Posture/Palpation/Skin Start: 06/10/23 14:10 Freq: Status: Active Protocol: Document 06/10/23 15:30 NM (Rec: 06/10/23 16:36 NM [id number]) Posture Evaluation Position Standing Evaluation View posterior, anterior, lateral Head/C-Spine Posture Flexed T-Spine Posture Increased Kyphosis L-Spine Posture Increased Lordosis Shoulder Posture (L) Rounded,(R) Rounded,(L) Forward,(R) Forward Scapula Posture (L) Protracted,(R) Protracted Pelvis Posture Anteriorly Tilted Weight Distribution Balanced PT-OP-K Range of Motion Start: 06/10/23 14:10 Freq: Status: Active Protocol: Document 06/10/23 15:30 NM (Rec: 06/10/23 16:36 NM [id number]) Cervical Spine Range of Motion Cervical Spine Active Degrees Testing Position Sitting Flexion 60 Extension 30 Rotation Left 72 Rotation Right 60 Lateral Flexion Left 15 Lateral Flexion Right 20 Comments Thoracic Spine: -Flexion = 20 deg -Extension = 10 deg -R Lateral flexion = 10 deg -L lateral flexion = 10 deg -R rotation = 7 cm -L rotation = 6 cm No pain with movements Shoulder Goniometric Range of Motion Shoulder ROM Limitations Shoulder ROM Limitations Soft Tissue Tightness Comments General mobility screen performed due to time constraints: limited shoulder flexion and abduction (~150 deg); all remaining motions WFL PT-OP-M Strength Start: 06/10/23 14:10 Freq: Status: Active Protocol: Document 06/10/23 15:30 NM (Rec: 06/10/23 16:36 NM [id number]) Trunk Strength Trunk Manual Muscle Testing Testing Position Sitting Flexion 3+ Fair+ Extension 3+ Fair+ Rotation Left 3+ Fair+ Rotation Right 3+ Fair+ Lateral Flexion Left 3+ Fair+ Lateral Flexion Right 3+ Fair+ Core Stabilization Minimal - demos difficulty with stabilization and sway with resistance PT-OP-Q Treatments Start: 06/10/23 14:10 Freq: Status: Active Protocol: Document 07/15/23 13:05 NM (Rec: 07/15/23 13:46 NM [id number]) Cardio Equipment Recumbent Bicycle Duration (Minutes) 4 Resistance 4 Seat Position 5 Other warm up Therapeutic Exercises Supine Exercises Foam Roller Supine Exercise Name pec stretch Side bilateral Equipment Used 1/2 foam roller Reps/Minutes 1x60 Standing Exercises Self mobilization Standing Exercise Name rhomboids Side right Equipment Used pink ball Reps/Minutes 2 min Band Walkouts Standing Exercise Name For core stab Side bilateral Resistance orange tb Reps/Minutes 5x ea direction Comments cues to prevent twisting at trunk, core stab Pallof press Standing Exercise Name 1. fwd/bwd, 2. pallof + twist Side bilateral Equipment Used lvl 2 orange tb Reps/Minutes 1. 10x2, 2. 1x8 Comments cues for core stab, belly button to spine; difficulty with sequencing 2 Therapeutic Activity Therapeutic Activity Carrying Objects Reps/Minutes 110 ft = 1 rep Comments 1. Suitcase carry, 2 reps ea side; cues to maintain upright posture, no leaning to the weighted side 2. Estevez carry, 2 reps ea side; cues for upright posture , core contraction to stabilize trunk and prevent fwd flex Squat Name 10# db olive picker from floor > place on shelf Reps/Minutes 5 reps Comments Education on safety, body mechanics to squat and olive picker weighted objects. Cued for correct execution, limit fwd flex to decrease stress on anterior vertebral bodies, glute activation (~ to sit in a chair). Pt able to correctly execute with min to no cueing today. PT-OP-T Assessment and Plan Start: 06/10/23 14:10 Freq: Status: Active Protocol: Document 07/15/23 13:05 NM (Rec: 07/15/23 13:46 NM [id number]) Physical Therapy Assessment Goals Five Impairment strength Impairment trunk strength globally 3+/5 Short Term Goal (STG) Pt will improve global trunk strength to at least 4-/5 demonstrating good core activation strategies in order to stabilize spine effectively during gait, standing, lifting, and for activity tolerance. STG Duration 3 weeks MET Animal Shelter Worker Goal (LTG) Pt will improve global trunk strength to at least 4/5 demonstrating good core activation strategies in order to stabilize spine effectively during gait, standing, lifting, and for improved activity tolerance. 07/13/23: MET able to perform 30 second plank (not modified) and can perform trunk/ abdominal flex MMT with 4/5 score LTG Duration 6 weeks MET Four Impairment function, safety Impairment increased risk of compression fractures Short Term Goal (STG) Pt will verbalize at least 3 strategies for good body mechanics during lifting or carrying objects in order to decrease risk of compression fractures, improve safety during ADLs, and create new functional strategies to be able to perform ADLs. STG Duration 3 weeks MET 07/06/23 Mcfp Goal (LTG) Pt will be able to verbalize and successfully demonstrate at least 3 strategies during lifting or carrying objects in order to decrease risk of compression fractures, improve safety during ADLs, and to create new functional strategies to be able to perform ADLs. 07/15/23: MET able verbalize and demonstrate 3 strategies successfully for lifting/ carrying using safe body mechanics 07/13/23: Able to verbalize 3 strategies and demo 2 strageties successfully (squat to olive picker objects, limit spinal flexion loading) LTG Duration 6 weeks MET Three Impairment ROM Impairment Thoracic ROM limited: flex (20 deg), ext (10 deg), B lateral flex (10 deg) Animal Shelter Worker Goal (LTG) Pt will improve his thoracic ROM by at least 3-5 degrees to decrease trunk stiffness, improve posture, and increase functional mobility in order to perform ADLs. 07/13/23: Pt demos 20 deg thoracic ext, 15 deg B lateral flexion LTG Duration 6 weeks MET Two Impairment balance, function, safety Impairment Tinetti test score 22/28 ( moderate fall risk) Short Term Goal (STG) Pt will increase his Tinetti score by at least 2 points in order to move from the moderate fall risk category to low fall risk category in order to decrease fall risk and caregiver burden. STG Duration 3 weeks Mcfp Goal (LTG) Pt will increase his Tinetti score by 2 or more points in order to move to the low fall risk category in order to demonstrate safety during ambulation in addition to decrease fall risk and caregiver burden. 07/13/23: MET Tinetti score 28 /28 LTG Duration 6 weeks MET One Impairment function, gait, endurance Impairment 6 MWT distance = 1282 ft (390m ) Norm for age = 527 m Short Term Goal (STG) Pt will improve 6 MWT by at least 50 m (MCID) in order to demonstrate improved endurance , strength, and balance. 07/13/23: 1396 ft (425 m), an increase of 35 m STG Duration 3 weeks NOT MET Mcfp Goal (LTG) Pt will improve 6 MWT by at least 100 m in order to be within 50 m (1 MCID) of age- related norms in order to demonstrate improved endurance , activity tolerance, and BLE strength. LTG Duration 6 weeks NOT MET Assessment Summary Assessment Pt demos improved core stabilization. Able to tolerate several variations of pallof press while maintaining good upright posture and strong abdominal/ trunk contraction for stability. Pt able to meet body mechanics goal today. He can both verablize and demonstrate lifting and carrying at least 10# using safe body mechanics and with good posture. However, he becomes fatigued after a few repetitions and requires a seated rest break. Pt would benefit from skilled PT to address limitations in his endurance and core strength in order to improve activity tolerance and to return to PLOF. Physical Therapy Plan Frequency and Duration Frequency of Treatment 2x/Week Duration of treatment (weeks) 6 Plan of Care Start Date 06/10/23 Plan of Care End Date 07/22/23 Therapeutic Interventions Therapeutic Interventions Balance Training,Coordination Training,Gait Training,Home Exercise Program,Neuromuscular Re-education,Patient/ Caregiver Education,Soft Tissue Mobilization,Taping, Therapeutic Activities, Therapeutic Exercises Modalities Cold Pack/Ice Massage,Electric Stimulation,Hot Packs Other Referrals/Consults Referrals/Consults Recommended Pt reports experiencing vision difficulties related to prior condition, instructed to make appt with supervisor speech Next Visit Focus/Plan Next Note Type Treatment Note Next Visit Plan Progress trunk and BLE strengthening functionally, hip hinge. Strengthen trunk posture muscles. Balance training. Review postural and safety education maddy with lifting/carrying
--- NOTE | 2023-07-22 12:53 | PT.OPDS ---
Current Diagnoses Weakness (07/15/23) Wedge compression fracture of unspecified thoracic vertebra, subsequent encounter for fracture with routine healing (07/15/23) Visit Care Team Role Provider Type Lindsay Carmen MD Attending Provider Physician Family Provider Primary Care Provider Referring Provider Specialty: Family Practice Address: [address] [place] [address] [place], [address] Email: [email or web address] Visit Number Visit Number 8 Discharge Summary PT-OP-B Current Condition Start: 06/10/23 14:10 Freq: Status: Active Protocol: Document 06/10/23 15:30 NM (Rec: 06/10/23 16:36 NM [id number]) Current Condition History of Current Condition Onset Date January 2023 Current Complaints low back and mid back pain, weakness, poor endurance for activity and gait History of Current Condition Pt presents to clinic with mild thoracic and low back pain s/p a wedge compression fracture that occurred in January 2023. Pt was performing yard work (weed eater and leaf blower) when he felt a severe, sharp pain in the middle of his back that did not resolve. He had extreme difficulty walking, sitting, standing, and performing his ADLs. He followed up with Dr. Carmen, who ordered xrays, CT, and MRIs to determine the cause. Imaging revealed a stable compression wedge fracture at T7; he has a former T5 compression fracture. Pt was not given a brace but has been limiting his activity. At this time, he rarely has any thoracic spine pain. 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 He lives with his . Pt reports being active around the house, but has decreased energy overall. At the time of evaluation, pt has most difficulty with endurance, strength, posture, and performing ADLs. Prior Treatments and Tests Hx of L AMY (1999) Imaging results (03/20/23): MRI - T7 compression fracture with 50% height loss, no retropulsion, no cord compression; old T5 compression fracture. Stable. No sign of metastasis Treatment Goals Patient/Caregiver Goals Become stronger and more active Prior Functional Status Baseline Function- ADL's Independent Baseline Function- Mobility Independent Baseline Function- Gait walked about 1 mile/day Baseline Function- Recreation/Hobbies able to perform yard work, ADLs Personal Factors Other Personal Factors That May Effect Pt is currently receiving oral Therapy/Recovery chemo for prostate cancer, but reports that his blood markers are showing improvement. PT-OP-C Subjective Start: 06/10/23 14:10 Freq: Status: Active Protocol: Document 07/15/23 13:05 NM (Rec: 07/15/23 13:46 NM [id number]) OP-PT Subjective Patient Comments Patient Comments Pt reports the he has soreness in his R shoulder/chest after last session. However, he reports that he is doing well overall and states that his legs feel stronger. PT-OP-D Balance Start: 06/10/23 14:10 Freq: Status: Active Protocol: Document 06/10/23 15:30 NM (Rec: 06/10/23 16:36 NM [id number]) OP-PT Balance Assessment Sitting Balance Static Sitting Balance Ability Normal Dynamic Sitting Balance Ability Normal Standing Balance Static Standing Balance Ability Good Dynamic Standing Balance Ability Fair Device Used none Tinetti Balance Assessment Sitting Balance Sitting Balance Steady, safe Arising from Chair Ability to Arise Able, w/o using arms Attempts to Arise Arises on 1st attempt Standing Balance Immediate Standing Balance Steady w/o support Standing Balance Narrow stance w/o support Nudged Response Staggers, catches self Standing with Eyes Closed Unsteady Turning Step Pattern Turning 360 Degrees Continuous steps Stability Turning 360 Degrees Unsteady, grabs/staggers Sitting Down Sitting Down Uses arms or unsteady Gait and Step Initiation of Gait No hesitancy Right Foot Step Length Does pass stance foot Right Foot Step Height Completely clears floor Left Foot Step Length Does pass stance foot Left Foot Step Height Completely clears floor Step Description Step Symmetry Step length appears equal Step Continuity Steps appear continuous Gait Description Path Description Mild/moderate deviation Trunk Description No sway Walking Stance Heels apart Scoring and Interpretation Tinetti Composite Score (points) 22 Interpretation of Scores At risk for falls (19-24) Tinetti Impairment Rating from Composite 1 to <20% Impaired (Score 23- Score 27) Adkins Fall Scale Copyright Permission PT-OP-E Functional Tests Start: 06/10/23 14:10 Freq: Status: Active Protocol: Document 06/10/23 15:30 NM (Rec: 06/10/23 16:36 NM [id number]) Functional Tests 6 Minute Walk Test Distance 1282 ft Device Used none Comments 390 m (below age norm), reports this walk is tiring Five Times Sit to Stand Test Score 15.38 s Comments no hands used PT-OP-F Manual Assessment Start: 06/10/23 14:10 Freq: Status: Active Protocol: Document 06/10/23 15:30 NM (Rec: 06/10/23 16:36 NM [id number]) Manual Assessments Joint Mobility Assessment Joint Mobility Assessment Thoracic spine individual joint not assessed due to fracture hx and risk PT-OP-G Mobility & Gait Start: 06/10/23 14:10 Freq: Status: Active Protocol: Document 06/10/23 15:30 NM (Rec: 06/10/23 16:36 NM [id number]) OP Gait Assessment Gait Gait Assistance Required: Independent Factors Limiting Gait Function Factors Limiting Gait Function Decreased Activity Tolerance, Decreased Strength PT-OP-H Neuro Start: 06/10/23 14:10 Freq: Status: Active Protocol: Document 06/10/23 15:30 NM (Rec: 06/10/23 16:36 NM [id number]) Sensation Evaluation Gross Sensation Gross Sensation WNL Coordination Evaluation Comments Coordination Comments C5-T12 dermatomes intact to light touch Deep Tendon Reflex & Clonus Assessment Deep Tendon Reflex Bilateral Bicep Deep Tendon Reflex 1+ Diminished PT-OP-J Posture/Palpation/Skin Start: 06/10/23 14:10 Freq: Status: Active Protocol: Document 06/10/23 15:30 NM (Rec: 06/10/23 16:36 NM [id number]) Posture Evaluation Position Standing Evaluation View posterior, anterior, lateral Head/C-Spine Posture Flexed T-Spine Posture Increased Kyphosis L-Spine Posture Increased Lordosis Shoulder Posture (L) Rounded,(R) Rounded,(L) Forward,(R) Forward Scapula Posture (L) Protracted,(R) Protracted Pelvis Posture Anteriorly Tilted Weight Distribution Balanced PT-OP-K Range of Motion Start: 06/10/23 14:10 Freq: Status: Active Protocol: Document 06/10/23 15:30 NM (Rec: 06/10/23 16:36 NM [id number]) Cervical Spine Range of Motion Cervical Spine Active Degrees Testing Position Sitting Flexion 60 Extension 30 Rotation Left 72 Rotation Right 60 Lateral Flexion Left 15 Lateral Flexion Right 20 Comments Thoracic Spine: -Flexion = 20 deg -Extension = 10 deg -R Lateral flexion = 10 deg -L lateral flexion = 10 deg -R rotation = 7 cm -L rotation = 6 cm No pain with movements Shoulder Goniometric Range of Motion Shoulder ROM Limitations Shoulder ROM Limitations Soft Tissue Tightness Comments General mobility screen performed due to time constraints: limited shoulder flexion and abduction (~150 deg); all remaining motions WFL PT-OP-M Strength Start: 06/10/23 14:10 Freq: Status: Active Protocol: Document 06/10/23 15:30 NM (Rec: 06/10/23 16:36 NM [id number]) Trunk Strength Trunk Manual Muscle Testing Testing Position Sitting Flexion 3+ Fair+ Extension 3+ Fair+ Rotation Left 3+ Fair+ Rotation Right 3+ Fair+ Lateral Flexion Left 3+ Fair+ Lateral Flexion Right 3+ Fair+ Core Stabilization Minimal - demos difficulty with stabilization and sway with resistance PT-OP-T Assessment and Plan Start: 06/10/23 14:10 Freq: Status: Active Protocol: Document 07/22/23 12:39 NM (Rec: 07/22/23 12:52 NM [id number]) Physical Therapy Assessment Goals Five Impairment strength Impairment trunk strength globally 3+/5 Short Term Goal (STG) Pt will improve global trunk strength to at least 4-/5 demonstrating good core activation strategies in order to stabilize spine effectively during gait, standing, lifting, and for activity tolerance. STG Duration 3 weeks MET Program Aide Goal (LTG) Pt will improve global trunk strength to at least 4/5 demonstrating good core activation strategies in order to stabilize spine effectively during gait, standing, lifting, and for improved activity tolerance. 07/13/23: MET able to perform 30 second plank (not modified) and can perform trunk/ abdominal flex MMT with 4/5 score LTG Duration 6 weeks MET Four Impairment function, safety Impairment increased risk of compression fractures Short Term Goal (STG) Pt will verbalize at least 3 strategies for good body mechanics during lifting or carrying objects in order to decrease risk of compression fractures, improve safety during ADLs, and create new functional strategies to be able to perform ADLs. STG Duration 3 weeks MET 07/06/23 Detention Goal (LTG) Pt will be able to verbalize and successfully demonstrate at least 3 strategies during lifting or carrying objects in order to decrease risk of compression fractures, improve safety during ADLs, and to create new functional strategies to be able to perform ADLs. 07/15/23: MET able verbalize and demonstrate 3 strategies successfully for lifting/ carrying using safe body mechanics 07/13/23: Able to verbalize 3 strategies and demo 2 strageties successfully (squat to package pick up objects, limit spinal flexion loading) LTG Duration 6 weeks MET Three Impairment ROM Impairment Thoracic ROM limited: flex (20 deg), ext (10 deg), B lateral flex (10 deg) Program Aide Goal (LTG) Pt will improve his thoracic ROM by at least 3-5 degrees to decrease trunk stiffness, improve posture, and increase functional mobility in order to perform ADLs. 07/13/23: Pt demos 20 deg thoracic ext, 15 deg B lateral flexion LTG Duration 6 weeks MET Two Impairment balance, function, safety Impairment Tinetti test score 22/28 ( moderate fall risk) Short Term Goal (STG) Pt will increase his Tinetti score by at least 2 points in order to move from the moderate fall risk category to low fall risk category in order to decrease fall risk and caregiver burden. STG Duration 3 weeks Program Aide Goal (LTG) Pt will increase his Tinetti score by 2 or more points in order to move to the low fall risk category in order to demonstrate safety during ambulation in addition to decrease fall risk and caregiver burden. 07/13/23: MET Tinetti score 28 /28 LTG Duration 6 weeks MET One Impairment function, gait, endurance Impairment 6 MWT distance = 1282 ft (390m ) Norm for age = 527 m Short Term Goal (STG) Pt will improve 6 MWT by at least 50 m (MCID) in order to demonstrate improved endurance , strength, and balance. 07/13/23: 1396 ft (425 m), an increase of 35 m STG Duration 3 weeks NOT MET Program Aide Goal (LTG) Pt will improve 6 MWT by at least 100 m in order to be within 50 m (1 MCID) of age- related norms in order to demonstrate improved endurance , activity tolerance, and BLE strength. LTG Duration 6 weeks NOT MET Progress Towards Goals Progress Towards Goals Slow Progress due to Activity Tolerance,Goals Met Progress Comments Pt has met 4/5 goals. He did not meet his 6 MWT ambulation goal due to decreased activity tolerance, but he did improve his distance from IE. Assessment Summary Assessment Pt was evaluated on 06/10/23 for thoracic spine pain s/p compression fracture. He attended 7 treatment sessions to focus on safe trunk strengthening, mobility, and for education regarding body mechanics/posture to decrease risk of re-injury. Pt was compliant with HEP and session attendance. He has met 4/5 goals related to improving thoracic spine ROM, trunk strength, safety during lifting/carrying, and balance. His Tinetti score improved by 6 points since IE. He also improved his trunk strength MMT by 3 grades and was able to perform a 30 second full plank. The only goal pt did not meet but was progressing toward was the 6 MWT distance goal. Pt improved his distance by 35 m from IE at last progress note, but was unable to meet age and gender-related norms due to decreased activity tolerance; he becomes fatigued with exercise and longer ambulation. At last session on 07/15, PT and pt discussed possibility of pt discharging at end of POC on 07/22/23 to independent exercise, pt verbalized agreement. On 07/21/23, pt's called to cancel remaining PT sessions, stating pt had a torn muscle and did not need to continue PT services. Pt instructed to follow up with PCP for current condition and for any changes to previous condition. Pt will be discharged from PT services at this time. Physical Therapy Plan Frequency and Duration Frequency of Treatment 2x/Week Duration of treatment (weeks) 6 Plan of Care Start Date 06/10/23 Plan of Care End Date 07/22/23 Therapeutic Interventions Therapeutic Interventions Balance Training,Coordination Training,Gait Training,Home Exercise Program,Neuromuscular Re-education,Patient/ Caregiver Education,Soft Tissue Mobilization,Taping, Therapeutic Activities, Therapeutic Exercises Modalities Cold Pack/Ice Massage,Electric Stimulation,Hot Packs Other Referrals/Consults Referrals/Consults Recommended Pt reports experiencing vision difficulties related to prior condition, 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 Pt set to discharge 07/22/23 at last session due to 4/5 met goals Next Visit Focus/Plan Next Note Type Discharge Summary Next Visit Plan Discharge from OP PT services
== END 2023-07-28 15:00 | disposition home or self-care (01) ==
LOC: PHYS 13:00
PROVIDERS: Family Provider Family Medicine; PCP Family Medicine; Referring Provider Family Medicine; Visit Provider Family Medicine
DX: S22.000D Wedge compression fracture of unspecified thoracic vertebra, subsequent encounter for fracture with routine healing (principal); R53.1 Weakness
CPT/HCPCS: 97110; 97116; 97162; 97530; 97535

== ENCOUNTER 2023-09-16 16:00 | Emergency (ER) | payer OTHER, MEDICARE, SELFPAY ==
[2023-09-16] VITALS (19 sets, daily range): BP systolic 158–224; BP diastolic 73–96; PULSE 51–76; RESP 14–28; TEMP 36.5; O2SAT 92–98; BMI 18.4
--- NOTE | 2023-09-16 16:25 | DI.CT.S_ITS ---
PROCEDURE: CT HEAD/BRAIN WO CON INDICATIONS: fall, h/o compression fx, new pain, h/o prostate ca TECHNIQUE: Noncontrast 4.5 mm thick angled axial sections acquired from the foramen magnum to the vertex, with coronal and sagittal reformats. For radiation dose reduction, the following was used: automated exposure control, adjustment of mA and/or kV according to patient size. COMPARISON: None. FINDINGS: Image quality: Diagnostic. CSF spaces: Basal cisterns are patent. No extra-axial fluid collections. The ventricles are symmetric in size and shape. Brain: No intracranial bleeds or masses. There is cerebral volume loss for age, with resultant ventricular and sulcal prominence. There are periventricular and deep white matter chronic small vessel ischemic changes. There is intracranial internal carotid artery atherosclerosis. Skull and face: Calvarium and visualized facial bones appear intact, without suspicious lesions. Sinuses: Visualized sinuses and mastoids are clear. IMPRESSION: No acute intracranial pathology. Dictated by: Willy Chahal M.D. on 09/16/2023 at 16:59 Approved by: Willy Chahal M.D. on 09/16/2023 at 17:00
--- NOTE | 2023-09-16 16:25 | DI.CT.S_ITS ---
PROCEDURE: CT CERVICAL SPINE WO CON INDICATIONS: fall, h/o compression fx, new pain, h/o prostate ca TECHNIQUE: Noncontrast 3 mm thick sections acquired from the skull base to the T4 level. Sagittal and coronal reformats were then constructed. For radiation dose reduction, the following was used: automated exposure control, adjustment of mA and/or kV according to patient size. COMPARISON: [facility], MR, MR THORACIC SPINE WO CON, 03/20/2023, 9:46. FINDINGS: Image quality: Excellent. Bones: No fractures or dislocations. There are multilevel degenerative changes of the cervical spine with facet and uncovertebral arthropathy, disc height loss with degenerative endplate changes and spurring. Diffusely decreased osseous mineralization. Visualized superior ribs are intact. Moderate compression deformity of T3 and mild compression deformity of T5. Soft tissues: Prevertebral soft tissues are normal in thickness. No paravertebral hematomas. No apical pneumothoraces. Atherosclerotic vascular calcifications. IMPRESSION: No displaced fracture or traumatic subluxation of the cervical spine. Moderate compression deformity of the T3 vertebral body is new with mild retropulsion and mild central canal stenosis. Stable mild compression deformity of T5. Dictated by: Willy Chahal M.D. on 09/16/2023 at 17:00 Approved by: Willy Chahal M.D. on 09/16/2023 at 17:03
--- NOTE | 2023-09-16 16:25 | DI.CT.S_ITS ---
PROCEDURE: CT CHEST ABD PEL W CON INDICATIONS: fall, h/o compression fx, new pain, h/o prostate ca TECHNIQUE: After the administration of intravenous contrast, 5 mm thick sections acquired from the lung apices to the symphysis. 2.5 mm thick coronal and sagittal reformats were acquired. Additional 7 mm thick coronal maximum intensity projection (MIP) reformats acquired through the lungs. Optional 10-minute delayed imaging may be performed from the kidneys to the bladder. For radiation dose reduction, the following was used: automated exposure control, adjustment of mA and/or kV according to patient size. COMPARISON: Outside [facility], NM, PET NECK TO MID THIGH, 09/09/2022, 16:23. [facility], MR, MR LUMBAR SPINE WO CON, 03/20/2023, 9:46. [facility], CT, CT CHEST WO CON, 03/09/2023, 11:50. [facility], MR, MR THORACIC SPINE WO CON, 03/20/2023, 9:46. [facility], CT, CT CHEST ABD PEL W CON, 01/03/2019, 12:55. FINDINGS: Image quality: Diagnostic. CHEST: Lower Neck: No enlarged lymph nodes. Thyroid: No thyroid nodules which require sonographic evaluation. Axillae: No enlarged lymph nodes. Chest Wall: No subcutaneous gas. Several prior right-sided rib fractures with callus formation. Lungs and Pleura: No pulmonary contusions or lacerations. No acute airspace opacities. Moderate emphysematous change. Left lower lobe pulmonary nodule measuring 0.9 cm, (5/214). Minimal thickening at the left lower lobe pleura, (5/182), unchanged. No pneumothorax or hemothorax. Mediastinum: No mediastinal hematomas. Heart size is normal. No pericardial effusion. Thoracic aorta and pulmonary arteries demonstrate normal size and enhancement. No mediastinal or hilar adenopathy. Esophagus is normal in caliber. No hiatal hernia. ABDOMEN: Liver: No lacerations. A few hypodense foci in the liver which appears similar and have the appearance of benign cysts. Gallbladder: No radiopaque gallstones or wall thickening. Biliary ducts: No biliary dilation. Pancreas: Homogenous enhancement. Spleen: Homogenous enhancement without laceration or hematoma. Adrenal Glands: Symmetric enhancement. Kidneys and Ureters: Symmetric enhancement. No hydronephrosis. No solid mass. No complex renal cystic lesion which requires follow up. Small benign left renal cyst. Stomach and Bowel: Normal colonic caliber, without significant wall thickening. Diverticulosis. The appendix is partly partially visualized and is not distended. Peritoneum: No abnormal intraperitoneal fluid. No free air. Ventral Wall: Tiny fat containing umbilical hernia. Abdominal Nodes: No retroperitoneal or mesenteric adenopathy by size criteria. Vessels: Minimal aortic ectasia. Extensive calcified plaque. PELVIS: Pelvic Organs: Prostate fiducial markers. Bladder: No stone. Bladder only partially distended. Pelvic Nodes: No enlarged lymph nodes. Miscellaneous: No inguinal hernias are seen. Bones: Left hip fixation screws. Adjacent sclerosis is unchanged. Mild sclerosis at the right inferior pubic ramus, (2/118), previously PET avid. T3 compression fracture which is new in the interval compared to 03/20/2023. T5 mild compression deformity is unchanged. T7 compression fractures is stable. Bones appear osteopenic. A few sclerotic foci at the left ilium are unchanged compared to 2019. Consistent bone islands. IMPRESSION: 1. T3 compression fracture which is new in the interval compared to 03/20/2023. 2. Stable T5 and T7 compression fractures. Prior right-sided rib fractures. 3. Moderate emphysematous change. Left lower lobe pulmonary nodule measuring 0.9 cm. Indeterminate. Recommend further evaluation with PET/CT. 4. No acute airspace opacity. 5. No solid parenchymal organ identified in the abdomen or pelvis. 6. Mild sclerosis at the right inferior pubic ramus is unchanged. Previously PET avid. 7. No adenopathy demonstrated. Prostate fiducial markers. Dictated by: Leon Tim M.D. on 09/16/2023 at 17:36 Approved by: Leon Tim M.D. on 09/16/2023 at 17:57
--- NOTE | 2023-09-16 16:48 | PC.NURSE ---
IV inserted by this RN. 20G to R upper arm via Ultrasound IV insertion.
--- NOTE | 2023-09-16 18:15 | ED.FALL ---
HPI - Fall General Chief Complaint: Fall Stated Complaint: fall, back pain Time Seen by Provider: 09/16/23 18:15 Source: patient and family Mode of arrival: Wheelchair History of Present Illness HPI Narrative: 77-year-old gentleman with a history of metastatic prostate cancer, osteoporosis due to medications, thoracic compression fracture 6 months ago, hypertension. He was outside by his mailbox today took a step back to avoid the postal truck and ended up tripping falling backward taking the brunt of the fall on his upper back and his head. He describes a brief loss of consciousness describes ?coming to? with the mail man leaning over him asking if he was okay. He was able to get up and walk back to his house. His gave him hydrocodone that was left over from the prior compression fracture, talk to their primary doctor who recommended further ER evaluation. He continues to complain of pain at the back his head his lower cervical and upper thoracic spine. No extremity injuries no chest abdomen or pelvis complaints. This single hydrocodone has been fairly effective in controlling his pain. He does note when he moves his left shoulder that it hurts in the upper thoracic spine area. The shoulder itself is not injured. He has been doing fairly well recently with no, fevers, cough, chills, chest pain, palpitations, nausea, vomiting, diarrhea Related Data Home Medications Medication Instructions Recorded Confirmed Serotonin 1 tab DAILY 09/14/22 09/01/23 acetylcysteine 600 mg capsule (NAC) 600 mg PO 3XW 09/14/22 09/01/23 ascorbic acid (vitamin C) 500 mg 500 mg PO 3XW 09/14/22 09/01/23 tablet (Vitamin C) multivitamin 1 tab PO 3XW 09/14/22 09/01/23 quercetin 500 mg capsule 500 mg PO 3XW 09/14/22 09/01/23 vitamin D3 125 mcg (5,000 1 cap PO 3XW 09/14/22 09/01/23 unit)-vitamin K2 90 mcg capsule zinc 50 mg capsule 50 mg PO 3XW 09/14/22 09/01/23 Previous Rx's Medication Instructions Recorded prednisone 5 mg tablet 5 mg PO DAILY prostate cancer #30 10/22/22 tabs abiraterone 250 mg tablet 1,000 mg (4 x 250 mg) PO DAILY 10/29/22 #120 tabs atenolol 50 mg tablet 50 mg PO DAILY #90 tabs 02/18/23 hydrocodone 5 mg-acetaminophen 325 1 tab PO Q8H PRN pain #30 tabs 03/29/23 mg tablet oxycodone 5 mg tablet See Rx Instructions PO Q6H PRN 03/29/23 pain #40 tabs celecoxib 200 mg capsule (Celebrex) 200 mg PO BID #30 caps 04/20/23 calcitonin (salmon) 200 1 spray intranasal (ALT) DAILY 05/18/23 unit/actuation nasal spray #3.7 mL thyroid (pork) 65 mg tablet 65 mg PO DAILY #90 tabs 08/16/23 (Adthyza) lisinopril 5 mg tablet 5 mg PO DAILY #90 tabs 09/01/23 oxycodone 5 mg tablet 5 mg PO Q6H PRN pain #20 tabs 09/16/23 Allergies Allergy/AdvReac Type Severity Reaction Status Date / Time No Known Drug Allergies Allergy Verified 09/01/23 13:31 Review of Systems Review of Systems Narrative: Pertinent positive and negative findings as per HPI Patient History Medical History Osteoporosis Prostate cancer metastatic to bone Essential hypertension Graves disease 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) Depression (06/21/15) Family History Father Stroke Social History marital status: number of children: 2 household members: spouse lives independently: Yes caregiver/support person: No housing: house Smoking Status: Former smoker second hand exposure: No alcohol intake: current substance use type: does not use Smoking Status: Former smoker alcohol intake frequency: 0-2 drinks per day Substance Use Type: does not use Exam Initial Vital Signs Initial Vital Signs: Vital Signs Temperature 97.7 F 09/16/23 16:07 Pulse Rate 66 09/16/23 16:07 Respiratory Rate 18 09/16/23 16:07 Blood Pressure 203/96 H 09/16/23 16:07 Pulse Oximetry 98 09/16/23 16:07 Oxygen Delivery Method Room Air 09/16/23 16:07 General: Healthy appearing, in no acute distress. Able to give a complete and coherent history. Well-nourished well-developed HEENT: Moist mucous membranes, normal sclera with reactive pupils, head is atraumatic, no tenderness to palpation Neck: Tender at C6 and C7. Respiratory: Lungs are clear to auscultation, no wheezing no rales no rhonchi. Full and symmetrical air movement Chest: No abrasions or contusions. Tender T1 through T6. Cardiac: Regular rate and rhythm no murmurs no bruits Abdomen: Soft, nontender, good bowel tones, no flank pain Skin: Warm and dry, no abrasions or contusions Neurologic: Grossly neurologically intact with no obvious asymmetries or abnormalities Extremities: No trauma, well perfused. Left shoulder, area of pain complaint has full and unlimited pain-free range of motion in the shoulder and entire arm. He is neurovascularly intact Psych: Cooperative, appropriate insight and affect Course Orders Ordered: ED Orders 09/16/23 16:24 EKG-12 Lead Stat 09/16/23 16:25 CT cervical spine wo con Stat CT chest abd pel w con Stat CT head/brain wo con Stat 09/16/23 19:00 Complete Blood Count AUTO DIFF Stat Comprehensive Metabolic Panel Stat Lipase Stat Magnesium Stat PTT Partial Thromboplastin Donald Stat Prothrombin Time INR Stat Troponin & CK Cardiac Panel Stat 09/16/23 21:51 Hemoglobin and Hematocrit Stat Discontinued Medications Ibuprofen (Ibuprofen 400 Mg Tablet) 400 mg PO NOW ONE Stop: 09/16/23 21:31 Last Admin: 09/16/23 21:41 Dose: 400 mg Documented By: ROXANE Oxycodone/Acetaminophen (Oxycodone/Acetaminophen 5/325 Tablet) 1 tab PO NOW ONE Stop: 09/16/23 21:31 Last Admin: 09/16/23 21:41 Dose: 1 tab Documented By: ROXANE Oxycodone/Acetaminophen (Oxycodone/Apap 5/325 Prepack) 1 bottle MISC DIRECTED ONE Stop: 09/16/23 21:31 Last Admin: 09/16/23 21:42 Dose: 1 bottle Documented By: ROXANE Vital Signs Vital signs: Vital Signs - 8 hr 09/16/23 16:07 09/16/23 18:05 09/16/23 18:06 Temperature 97.7 F Pulse Rate 66 65 Pulse Rate [Orthostatic Lying] Pulse Rate [Orthostatic Sitting] Pulse Rate [Orthostatic Standing] Respiratory Rate 18 Blood Pressure 203/96 H 200/91 H Blood Pressure [Orthostatic Lying] Blood Pressure [Orthostatic Sitting] Blood Pressure [Orthostatic Standing] Pulse Oximetry 98 92 Oxygen Delivery Method Room Air 09/16/23 18:06 09/16/23 18:30 09/16/23 18:30 Temperature Pulse Rate 62 62 Pulse Rate [Orthostatic Lying] Pulse Rate [Orthostatic Sitting] Pulse Rate [Orthostatic Standing] Respiratory Rate Blood Pressure 183/82 H Blood Pressure [Orthostatic Lying] Blood Pressure [Orthostatic Sitting] Blood Pressure [Orthostatic Standing] Pulse Oximetry 94 95 Oxygen Delivery Method 09/16/23 19:00 09/16/23 19:02 09/16/23 19:02 Temperature Pulse Rate 51 L 63 Pulse Rate [Orthostatic Lying] Pulse Rate [Orthostatic Sitting] Pulse Rate [Orthostatic Standing] Respiratory Rate Blood Pressure 193/84 H Blood Pressure [Orthostatic Lying] Blood Pressure [Orthostatic Sitting] Blood Pressure [Orthostatic Standing] Pulse Oximetry 92 92 Oxygen Delivery Method 09/16/23 19:30 09/16/23 20:00 09/16/23 20:13 Temperature Pulse Rate 64 70 Pulse Rate [Orthostatic Lying] Pulse Rate [Orthostatic Sitting] Pulse Rate [Orthostatic Standing] Respiratory Rate Blood Pressure 199/84 H Blood Pressure [Orthostatic Lying] Blood Pressure [Orthostatic Sitting] Blood Pressure [Orthostatic Standing] Pulse Oximetry 94 95 Oxygen Delivery Method 09/16/23 20:13 09/16/23 20:30 09/16/23 20:30 Temperature Pulse Rate 63 64 Pulse Rate [Orthostatic Lying] Pulse Rate [Orthostatic Sitting] Pulse Rate [Orthostatic Standing] Respiratory Rate 18 Blood Pressure 200/84 H Blood Pressure [Orthostatic Lying] Blood Pressure [Orthostatic Sitting] Blood Pressure [Orthostatic Standing] Pulse Oximetry 95 95 Oxygen Delivery Method Room Air 09/16/23 21:00 09/16/23 21:00 09/16/23 21:30 Temperature Pulse Rate 67 67 Pulse Rate [Orthostatic Lying] Pulse Rate [Orthostatic Sitting] Pulse Rate [Orthostatic Standing] Respiratory Rate 18 23 Blood Pressure 164/73 H Blood Pressure [Orthostatic Lying] Blood Pressure [Orthostatic Sitting] Blood Pressure [Orthostatic Standing] Pulse Oximetry 95 95 Oxygen Delivery Method 09/16/23 21:31 09/16/23 21:31 09/16/23 21:45 Temperature Pulse Rate 66 Pulse Rate [Orthostatic Lying] Pulse Rate [Orthostatic Sitting] Pulse Rate [Orthostatic Standing] Respiratory Rate 20 Blood Pressure 213/81 H 192/83 H Blood Pressure [Orthostatic Lying] Blood Pressure [Orthostatic Sitting] Blood Pressure [Orthostatic Standing] Pulse Oximetry 96 Oxygen Delivery Method 09/16/23 21:45 09/16/23 21:49 09/16/23 21:49 Temperature Pulse Rate 67 70 Pulse Rate [Orthostatic Lying] Pulse Rate [Orthostatic Sitting] Pulse Rate [Orthostatic Standing] Respiratory Rate 22 26 H Blood Pressure 224/89 H Blood Pressure [Orthostatic Lying] Blood Pressure [Orthostatic Sitting] Blood Pressure [Orthostatic Standing] Pulse Oximetry Oxygen Delivery Method 09/16/23 21:53 09/16/23 21:53 09/16/23 21:56 Temperature Pulse Rate 76 Pulse Rate [Orthostatic Lying] 68 Pulse Rate [Orthostatic Sitting] 71 Pulse Rate [Orthostatic Standing] 74 Respiratory Rate 28 H Blood Pressure 191/89 H Blood Pressure [Orthostatic Lying] 192/83 H Blood Pressure [Orthostatic Sitting] 224/89 H Blood Pressure [Orthostatic Standing] 191/89 H Pulse Oximetry Oxygen Delivery Method 09/16/23 22:00 09/16/23 22:00 Temperature Pulse Rate 65 Pulse Rate [Orthostatic Lying] Pulse Rate [Orthostatic Sitting] Pulse Rate [Orthostatic Standing] Respiratory Rate 18 Blood Pressure 204/89 H Blood Pressure [Orthostatic Lying] Blood Pressure [Orthostatic Sitting] Blood Pressure [Orthostatic Standing] Pulse Oximetry 97 Oxygen Delivery Method Room Air MDM - Fall Lab Data 09/16/23 21:51 09/16/23 19:00 Labs: Lab Results 09/16/23 09/16/23 Range/Units 19:00 21:51 WBC 12.5 H (4.5-11.0) X10^3/uL RBC 4.15 L (4.5-5.9) X10^6/uL Hgb 12.9 L 12.6 L (13.5-17.5) g/dL Hct 38.1 L 37.4 L (41-53) % MCV 91.9 (80-100) fL MCH 31.2 (26-34) PG MCHC 33.9 (30-36) % RDW 13.0 (11.6-14.8) % Plt Count 219 (150-400) X10^3/uL Neut % (Auto) 86.2 H (50-75) % Lymph % (Auto) 8.4 L (25-40) % [place] % (Auto) 4.7 (3-14) % Eos % (Auto) 0.4 L (2-4) % Baso % (Auto) 0.3 (0-2) % Neut # (Auto) 53314 H (6616-0583) /uL Lymph # (Auto) 1000 L (0630-5850) /uL [place] # (Auto) 600 (0-900) /uL Eos # (Auto) 100 (0-450) /uL Baso # (Auto) 0 (0-100) /uL PT 10.9 (9.4-12.5) SECONDS INR 1.0 (0.9-1.3) APTT 33 (25.1-36.5) SECONDS Sodium 136 L (137-145) mmol/L Potassium 3.8 (3.4-5.1) mmol/L Chloride 102 (98-107) mmol/L Carbon Dioxide 26 (22-32) mmol/L BUN 17 (9-20) mg/dL Creatinine 0.57 L (0.66-1.25) mg/dL Estimated GFR > 60 (>60) mL/min BUN/Creatinine Ratio 29.8 H (6-22) Glucose 100 (80-110) mg/dL Calcium 8.7 (8.4-10.2) mg/dL Magnesium 2.2 (1.6-2.3) mg/dL Total Bilirubin 0.6 (0.2-1.3) mg/dL AST 33 (17-59) IU/L ALT 20 (<50) IU/L Alkaline Phosphatase 101 (38-126) U/L Total Creatine Kinase 30 L (55-170) U/L Troponin I < 0.012 (0.01-0.034) ng/mL Total Protein 6.8 (6.3-8.2) g/dL Albumin 3.6 (3.5-5.0) g/dL Globulin 3.2 (1.7-4.1) g/dL Albumin/Globulin Ratio 1.1 (1.0-2.8) Lipase 76 (23-300) U/L [facility] Narrative Medical decision making narrative: CC: Mechanical fall head and neck pain Complicating co-morbidities: Metastatic prostate cancer to hip bones, osteoporosis Data collected from: patient, Medical records reviewed: Primary care notes reviewed Differential considered: Significant trauma, intracranial hemorrhage, multiple fractures, compression fractures, hemopneumothorax Exam documented above, pertinent findings include: He is tender along the lower cervical and upper thoracic spine. No obvious trauma to the head, no abrasions throughout the rest of the body. No extremity or pelvic injuries appreciated Lab Test results independently reviewed as above. Pertinent findings: CBC shows mild leukocytosis at 12.5 with slight decreased blood count at 12.9 and 38.1 . Repeat H&H is 12.6 and 37.4 Chemistries are reassuring Troponin is undetectable Imaging studies independently reviewed: Head CT unremarkable with no intracranial hemorrhage Cervical spine CT No displaced fracture or traumatic subluxation of the cervical spine. Moderate compression deformity of the T3 vertebral body is new with mild retropulsion and mild central canal stenosis. Stable mild compression deformity of T5. Chest abdomen and pelvis CT confirms new T3 compression fracture and stable T5 and T7 compression fractures. No other acute findings Treatments: Oral ibuprofen and Percocet Re-evaluations: Discussed findings with patient. Discussed pain management. Also reviewed the slightly decreased H&H. From almost a year ago hemoglobin was 15.2 and currently is 12.9. This may be unrelated today's event however make sure that he has not orthostatic or tachycardic when he stands and repeat an H&H. Discussion: 77-year-old gentleman with mechanical fall falling backwards suffering T3 compression fracture does not need acute intervention. There was no intracranial hemorrhage or other significant abnormalities from this trauma that would require further imaging or hospitalization today. Ibuprofen and Tylenol have been helpful for pain control. He has given an incentive spirometer to use at home over the next week. We also reviewed anticipated course of recovery including increasing pain over the 1st 48 hours. He is hemodynamically stable with no evidence of dropping H&H at time of discharge. Imaging studies and clinical exam do not suggest any areas of occult bleeding. He will follow up with his primary care doctor and at this point he is safe for discharge Discharge Plan Departure Patient Disposition: Home Clinical Impression: Fall Qualifiers: Encounter type: initial encounter Qualified Code(s): W19.XXXA - Unspecified fall, initial encounter Compression fracture of T3 vertebra Qualifiers: Encounter type: initial encounter Qualified Code(s): S22.030A - Wedge compression fracture of third thoracic vertebra, initial encounter for closed fracture Instructions: DI for Vertebral Fracture Activity Restrictions/Additional Instructions: Thank you for coming in today You got very dara with minimal injury from your fall today. You do have a small compression fracture at the T3 level, the upper part of your back which is causing the pain when you move your shoulder. This will improve, compression fractures typically take 6 weeks to resolve. Using 400 mg of ibuprofen (2 [id number] pills) and 1 Tylenol every 6 hours can be very helpful in controlling pain. For severe pain you can use 400 mg of ibuprofen and 5 mg of oxycodone. If the pain is not controlled with that you can increase the oxycodone to 10 mg. Is important to use an incentive spirometer to make sure that your lungs are staying fully inflated when you have a compression fracture. If you are not controlling your pain well enough that you are able to take deep breaths, your risk for pneumonia increases significantly The rest of your workup did not show any significant injuries. There is no skull fractures, bleeding in your head, neck fractures, rib fractures or abdominal/pelvic injuries. Do recognize that you are going to be increasingly sore in the 1st 48 hours after the injury and should begin to feel better after that. It is okay to be up and moving about. With the compression fracture you can try both ice and heat and see which seems to be more comforting. If you find that you are getting worse or develop any new symptoms, please feel free to return to the emergency department for further evaluation. Prescriptions: New oxycodone 5 mg tablet 5 mg PO Q6H PRN (Reason: pain) Qty: 20 0RF No Action hydrocodone-acetaminophen 5-325 mg tablet 1 tab PO Q8H PRN (Reason: pain) Qty: 30 0RF oxycodone 5 mg tablet See Rx Instructions PO Q6H PRN (Reason: pain) Qty: 40 0RF Rx Instructions: Take 1-2 tabs orally every 6 hours PRN; calcitonin (salmon) 200 unit/actuation spray,non-aerosol 1 spray intranasal (ALT) DAILY Qty: 3.7 2RF Rx Instructions: Take for 4 weeks lisinopril 5 mg tablet 5 mg PO DAILY Qty: 90 3RF atenolol 50 mg tablet 50 mg PO DAILY Qty: 90 3RF celecoxib [Celebrex] 200 mg capsule 200 mg PO BID Qty: 30 0RF Adthyza 65 mg tablet 65 mg PO DAILY Qty: 90 0RF multivitamin Tablet 1 tab PO 3XW ascorbic acid (vitamin C) [Vitamin C] 500 mg Tablet 500 mg PO 3XW zinc 50 mg Capsule 50 mg PO 3XW acetylcysteine [NAC] 600 mg Capsule 600 mg PO 3XW Rx Instructions: pt to confirm dose vitamin D3-vitamin K2 125-90 mcg Capsule 1 cap PO 3XW Rx Instructions: PT UNSURE OF DOSE-PT TO CONFIRM quercetin 500 mg Capsule 500 mg PO 3XW Serotonin 1 tab DAILY prednisone 5 mg Tablet 5 mg PO DAILY Qty: 30 11RF abiraterone 250 mg Tablet 1,000 mg PO DAILY Qty: 120 11RF Rx Instructions: must be taken on empty stomach, at least 1 hr before or 2 hrs after a meal/food Referrals: Lindsay Carmen MD [Primary Care Provider] - Stand Alone Forms: Patient Portal/API
[2023-09-16 19:41] LABS: Add Manual Diff / Slide Review NO; Basophils Absolute Auto 0 /uL (0-100); Basophils Percent Auto 0.3 % (0-2); Eosinophils Absolute Auto 100 /uL (0-450); Eosinophils Percent Auto 0.4 % (2-4); Hematocrit 38.1 % (41-53); Hemoglobin 12.9 g/dL (13.5-17.5); Lymphocytes Absolute Auto 1000 /uL (1100-4500); Lymphocytes Percent Auto 8.4 % (25-40); Mean Corpuscular HGB Conc 33.9 % (30-36); Mean Corpuscular Hemoglobin 31.2 PG (26-34); Mean Corpuscular Volume 91.9 fL (80-100); Monocytes Absolute Auto 600 /uL (0-900); Monocytes Percent Auto 4.7 % (3-14); Neutrophils Absolute Auto 10700 /uL (1500-7000); Neutrophils Percent Auto 86.2 % (50-75); Platelet Count 219 X10^3/uL (150-400); Red Blood Cell Count 4.15 X10^6/uL (4.5-5.9); White Blood Cell Count 12.5 X10^3/uL (4.5-11.0)
[2023-09-16 19:48] LABS: Prothrombin Time 10.9 SECONDS (9.4-12.5)
[2023-09-16 19:51] LABS: PTT Partial Thromboplastin Tim 33 SECONDS (25.1-36.5)
[2023-09-16 20:04] LABS: Alanine Aminotransferase 20 IU/L (<50); Albumin 3.6 g/dL (3.5-5.0); Albumin Globulin Ratio 1.1 (1.0-2.8); Alkaline Phosphatase 101 U/L (38-126); Aspartate Aminotransferase 33 IU/L (17-59); BUN Creatinine Ratio 29.8 (6-22); Bilirubin Total 0.6 mg/dL (0.2-1.3); Blood Urea Nitrogen 17 mg/dL (9-20); Calcium 8.7 mg/dL (8.4-10.2); Carbon Dioxide 26 mmol/L (22-32); Chloride 102 mmol/L (98-107); Creatine Kinase 30 U/L (55-170); Estimated Glomerular Filt Rate > 60 mL/min (>60); Globulin 3.2 g/dL (1.7-4.1); Glucose 100 mg/dL (80-110); HEMOLYSIS < 15 (0-50); Lipase 76 U/L (23-300); Magnesium 2.2 mg/dL (1.6-2.3); Potassium 3.8 mmol/L (3.4-5.1); Sodium 136 mmol/L (137-145); Total Protein 6.8 g/dL (6.3-8.2)
[2023-09-16 20:16] LABS: Troponin I < 0.012 ng/mL (0.01-0.034)
[2023-09-16] MEDS: OXYCODONE/ACETAMINOPHEN 5/325 TABLET 1 TAB PO (21:41)
[2023-09-16] MEDS: IBUPROFEN 400 MG TABLET PO (21:41)
[2023-09-16] MEDS: OXYCODONE/APAP 5/325 PREPACK 1 BOTTLE MISC (21:42)
[2023-09-16 21:54] LABS: Hematocrit 37.4 % (41-53); Hemoglobin 12.6 g/dL (13.5-17.5)
--- NOTE | 2023-09-16 22:07 | PC.NURSE ---
This nurse educated on the use of incentive spirometer and patient was able to demonstrate correct use of it, and verbalizes understanding as well.
== END 2023-09-16 22:42 | disposition home or self-care (01) ==
PROVIDERS: Emergency Medicine; Emergency Provider Emergency Medicine; Family Provider Family Medicine; PCP Family Medicine
DX: S22.030A Wedge compression fracture of third thoracic vertebra, initial encounter for closed fracture (principal); M54.2 Cervicalgia; C61 Malignant neoplasm of prostate; W18.30XA Fall on same level, unspecified, initial encounter
CPT/HCPCS: 36415; 70450; 71260; 72125; 74177; 80053; 82550; 83690; 83735; 84484; 85014; 85018; 85025; 85610; 85730; 99284; Q9967

== ENCOUNTER → 2023-12-20 15:22 | Outpatient (CLI) | payer MEDICARE, SELFPAY ==
--- NOTE | 2023-12-20 15:23 | DI.RAD.S_ITS ---
PROCEDURE: XR DEXA AXIAL SKELETON INDICATIONS: Secondary malignant neoplasm of bone COMPARISON: None. FINDINGS: Lumbar Spine: Bone mineral density 0.589 g/cm2, T score -4.2, osteoporosis. Right Hip: Bone mineral density 0.513 g/cm2, T score -3.5, osteoporosis. Right Femoral Neck: Bone mineral density 0.408 g/cm2, T score -4, osteoporosis. Left Forearm: Bone mineral density 0.484 g/cm2, T score -3.5, osteoporosis. Fracture Risk Calculation (when applicable): Cannot calculated due to osteoporosis diagnosis. (T score greater or equal to -1.0 to: NORMAL) (T score from -1.1 to -2.4: OSTEOPENIA) (T score less than or equal to -2.5: OSTEOPOROSIS) IMPRESSION: Osteoporosis. Follow-up guidelines as follows: Osteoporosis: Consider a repeat DEXA and Vertebral Fracture Assessment (VFA) exam in 2 years or sooner if medically necessary, to reassess this patient's status. Osteopenia: Consider a repeat DEXA in 2-3 years to reassess this patient's status, or if there is a new clinical indication. Normal: Consider a repeat DEXA in 5 years or sooner, or if there is a new clinical indication. Dictated by: Dionisio Wahl M.D. on 12/20/2023 at 16:42 Approved by: Dionisio Wahl M.D. on 12/20/2023 at 16:43
== END ==
PROVIDERS: Family Provider Family Medicine; PCP Family Medicine; Referring Provider Family Medicine; Visit Provider Family Medicine
DX: C61 Malignant neoplasm of prostate; C79.51 Secondary malignant neoplasm of bone; M81.0 Age-related osteoporosis without current pathological fracture
CPT/HCPCS: 77080; 77081

== ENCOUNTER → 2024-05-18 15:41 | Outpatient (CLI) | payer MEDICARE, SELFPAY ==
[2024-05-18 16:44] LABS: Creatinine Urine Random 97.63 mg/dL
[2024-05-18 16:51] LABS: Microalbumin Urine Random 1.1 mg/dL (0-1.6)
[2024-05-18 17:07] LABS: Add Manual Diff / Slide Review NO; Basophils Absolute Auto 100 /uL (0-100); Basophils Percent Auto 0.6 % (0-2); Eosinophils Absolute Auto 200 /uL (0-450); Eosinophils Percent Auto 1.8 % (2-4); Hematocrit 40.9 % (41-53); Hemoglobin 13.8 g/dL (13.5-17.5); Lymphocytes Absolute Auto 1500 /uL (1100-4500); Lymphocytes Percent Auto 15.7 % (25-40); Mean Corpuscular HGB Conc 33.6 % (30-36); Mean Corpuscular Hemoglobin 31.2 PG (26-34); Mean Corpuscular Volume 92.8 fL (80-100); Monocytes Absolute Auto 700 /uL (0-900); Monocytes Percent Auto 7.1 % (3-14); Neutrophils Absolute Auto 7400 /uL (1500-7000); Neutrophils Percent Auto 74.8 % (50-75); Platelet Count 296 X10^3/uL (150-400); Red Blood Cell Count 4.41 X10^6/uL (4.5-5.9); Red Cell Distribution Width 13.1 % (11.6-14.8); White Blood Cell Count 9.9 X10^3/uL (4.5-11.0)
[2024-05-18 17:42] LABS: Alanine Aminotransferase 19 IU/L (<50); Albumin 3.6 g/dL (3.5-5.0); Albumin Globulin Ratio 1.1 (1.0-2.8); Alkaline Phosphatase 73 U/L (38-126); Aspartate Aminotransferase 29 IU/L (17-59); BUN Creatinine Ratio 31.7 (6-22); Bilirubin Total 0.3 mg/dL (0.2-1.3); Blood Urea Nitrogen 26 mg/dL (9-20); Calcium 9.2 mg/dL (8.4-10.2); Carbon Dioxide 33 mmol/L (22-32); Chloride 98 mmol/L (98-107); Cholesterol 259 mg/dL (140-199); Estimated Glomerular Filt Rate > 60 mL/min (>60); Globulin 3.3 g/dL (1.7-4.1); Glucose 96 mg/dL (80-110); HDL Cholesterol 63 mg/dL (40-60); HEMOLYSIS < 15 (0-50); LDL Cholesterol Calculated 169 mg/dL (<100); Potassium 4.4 mmol/L (3.4-5.1); Sodium 134 mmol/L (137-145); Total Protein 6.9 g/dL (6.3-8.2); Triglycerides 136 mg/dL (35-150)
== END ==
PROVIDERS: Family Provider Family Medicine; PCP Family Medicine; Referring Provider Family Medicine; Visit Provider Family Medicine
DX: I10 Essential (primary) hypertension (principal); R06.02 Shortness of breath
CPT/HCPCS: 36415; 80053; 80061; 82043; 82570; 85025

== ENCOUNTER 2024-08-21 17:09 | Emergency (ER) | payer MEDICARE, SELFPAY ==
[2024-08-21] VITALS (11 sets, daily range): BP systolic 130–193; BP diastolic 61–89; PULSE 68–79; RESP 16–17; TEMP 36.6; O2SAT 79–97; BMI 26.4
--- NOTE | 2024-08-21 17:27 | DI.CT.S_ITS ---
PROCEDURE: CT HEAD/BRAIN WO CON INDICATIONS: fall TECHNIQUE: Noncontrast 4.5 mm thick angled axial sections acquired from the foramen magnum to the vertex, with coronal and sagittal reformats. For radiation dose reduction, the following was used: automated exposure control, adjustment of mA and/or kV according to patient size. COMPARISON: [facility], CT, CT HEAD/BRAIN WO CON, 09/16/2023, 16:48. FINDINGS: Image quality: Diagnostic. CSF spaces: Basal cisterns are patent. No extra-axial fluid collections. The ventricles are symmetric in size and shape. Brain: No intracranial bleeds or masses. There is cerebral volume loss for age, with resultant ventricular and sulcal prominence. There are periventricular and deep white matter chronic small vessel ischemic changes. There is intracranial internal carotid artery atherosclerosis. Skull and face: Calvarium and visualized facial bones appear intact, without suspicious lesions. Sinuses: Visualized sinuses and mastoids are clear. IMPRESSION: No acute intracranial pathology. Dictated by: Willy Chahal M.D. on 08/21/2024 at 17:43 Approved by: Willy Chahal M.D. on 08/21/2024 at 17:44
--- NOTE | 2024-08-21 17:28 | DI.RAD.S_ITS ---
PROCEDURE: XR RIBS RT MIN 3V W CXR 1V INDICATIONS: fall TECHNIQUE: 2 views of the ribs were acquired, along with a single view chest. COMPARISON: None. FINDINGS: Surgical changes and devices: None. Bones and chest wall: No fractures or dislocations. No suspicious bony lesions. Overlying soft tissues appear unremarkable. Lungs and pleura: No pleural effusions or pneumothorax. Lungs appear clear. Mediastinum: Mediastinal contours appear normal. Heart size is normal. IMPRESSION: No displaced rib fracture or pneumothorax. Dictated by: Willy Chahal M.D. on 08/21/2024 at 18:14 Approved by: Willy Chahal M.D. on 08/21/2024 at 18:15
--- NOTE | 2024-08-21 17:29 | DI.RAD.S_ITS ---
PROCEDURE: XR FOREARM RT 2V INDICATIONS: fall TECHNIQUE: 3 views of the forearm were acquired. COMPARISON: None. FINDINGS: Bones: Mildly displaced distal radial fracture. Displaced ulnar styloid fracture.. No suspicious bony lesions. Soft tissues: No suspicious soft tissue calcifications or masses. Atherosclerotic vascular calcifications. IMPRESSION: Distal radial and ulnar styloid fractures. Dictated by: Willy Chahal M.D. on 08/21/2024 at 18:15 Approved by: Willy Chahal M.D. on 08/21/2024 at 18:16
[2024-08-21 18:42] LABS: Add Manual Diff / Slide Review NO; Basophils Absolute Auto 100 /uL (0-100); Basophils Percent Auto 0.8 % (0-2); Eosinophils Absolute Auto 100 /uL (0-450); Eosinophils Percent Auto 0.4 % (2-4); Hematocrit 42.7 % (41-53); Hemoglobin 14.4 g/dL (13.5-17.5); Lymphocytes Absolute Auto 1200 /uL (1100-4500); Lymphocytes Percent Auto 9.5 % (25-40); Mean Corpuscular HGB Conc 33.8 % (30-36); Mean Corpuscular Hemoglobin 31.4 PG (26-34); Mean Corpuscular Volume 92.9 fL (80-100); Monocytes Absolute Auto 600 /uL (0-900); Monocytes Percent Auto 4.8 % (3-14); Neutrophils Absolute Auto 10400 /uL (1500-7000); Neutrophils Percent Auto 84.5 % (50-75); Platelet Count 274 X10^3/uL (150-400); Red Cell Distribution Width 13.8 % (11.6-14.8); White Blood Cell Count 12.3 X10^3/uL (4.5-11.0)
[2024-08-21 18:48] LABS: Prothrombin Time 11.6 SECONDS (9.4-12.5)
[2024-08-21 18:53] LABS: Alanine Aminotransferase 24 IU/L (<50); Albumin 4.3 g/dL (3.5-5.0); Albumin Globulin Ratio 1.2 (1.0-2.8); Alkaline Phosphatase 101 U/L (38-126); Aspartate Aminotransferase 37 IU/L (17-59); BUN Creatinine Ratio 36.1 (6-22); Bilirubin Total 0.7 mg/dL (0.2-1.3); Blood Urea Nitrogen 26 mg/dL (9-20); Calcium 9.3 mg/dL (8.4-10.2); Carbon Dioxide 32 mmol/L (22-32); Chloride 95 mmol/L (98-107); Creatine Kinase 85 U/L (55-170); Estimated Glomerular Filt Rate > 60 mL/min (>60); Globulin 3.5 g/dL (1.7-4.1); Glucose 107 mg/dL (80-110); HEMOLYSIS < 15 (0-50); Potassium 4.2 mmol/L (3.4-5.1); Sodium 131 mmol/L (137-145); Total Protein 7.8 g/dL (6.3-8.2)
--- NOTE | 2024-08-21 19:00 | EKG_ITS ---
[facility] [address] [place] [id number] Test Date: 2024-08-21 Pat Name: Dany Lovelace Department: [facility] Room: Gender: Male Pipe [employer]: ABE : 1945 Requested By: Order Number: [id number] Reading MD: Measurements Intervals [place] Rate: 69 P: 72 TN: 144 QRS: 42 QRSD: 80 T: 77 QT: 400 QTc: 428 Interpretive Statements Normal sinus rhythm
[2024-08-21 19:06] LABS: Troponin I < 0.012 ng/mL (0.01-0.034)
--- NOTE | 2024-08-21 20:27 | ED_ITS ---
HPI - Fall General Chief Complaint: Fall Stated Complaint: Fall, arm injury, unstable on legs,+blood thinner Time Seen by Provider: 08/21/24 20:27 Source: patient and family Mode of arrival: Wheelchair History of Present Illness HPI Narrative: 78-year-old male history of hypertension, hypothyroidism, comes into the ED with from home for evaluation of fall. States that this happened earlier today. States that he was feeling weak because he had a fall a proximally 3 weeks ago states that he was starting to feel better but ?overexerted himself he states that he fell forward caught himself on his right hand denies head strike had pain immediately to that right wrist. He has not on any blood thinners, no other injuries or symptoms at this time. Related Data Home Medications Medication Instructions Recorded Confirmed Serotonin 1 tab DAILY 09/14/22 10/27/23 acetylcysteine 600 mg capsule (NAC) 600 mg PO 3XW 09/14/22 10/27/23 ascorbic acid (vitamin C) 500 mg 500 mg PO 3XW 09/14/22 10/27/23 tablet (Vitamin C) multivitamin 1 tab PO 3XW 09/14/22 10/27/23 quercetin 500 mg capsule 500 mg PO 3XW 09/14/22 10/27/23 vitamin D3 125 mcg (5,000 1 cap PO 3XW 09/14/22 10/27/23 unit)-vitamin K2 90 mcg capsule zinc 50 mg capsule 50 mg PO 3XW 09/14/22 10/27/23 Previous Rx's Medication Instructions Recorded prednisone 5 mg tablet 5 mg PO DAILY prostate cancer #30 10/22/22 tabs abiraterone 250 mg tablet 1,000 mg (4 x 250 mg) PO DAILY 10/29/22 #120 tabs oxycodone 5 mg tablet See Rx Instructions PO Q6H PRN 03/29/23 pain #40 tabs celecoxib 200 mg capsule (Celebrex) 200 mg PO BID #30 caps 04/20/23 lisinopril 5 mg tablet 5 mg PO DAILY #90 tabs 09/01/23 calcitonin (salmon) 200 1 spray intranasal (ALT) DAILY 09/29/23 unit/actuation nasal spray #3.7 mL hydrocodone 5 mg-acetaminophen 325 1 tab PO Q8H PRN pain #30 tabs 09/29/23 mg tablet oxycodone 5 mg tablet 5 mg PO Q6H PRN pain #15 tabs 09/29/23 thyroid (pork) 60 mg tablet 60 mg PO DAILY #90 tabs 08/16/24 atenolol 50 mg tablet 50 mg PO DAILY #90 tabs 08/21/24 oxycodone-acetaminophen 5 mg-325 1 tab PO Q8H PRN pain 3 days #9 08/21/24 mg tablet (Percocet) tabs Allergies Allergy/AdvReac Type Severity Reaction Status Date / Time No Known Drug Allergies Allergy Verified 10/27/23 13:52 Review of Systems Review of Systems Narrative: General: Denies fever, chills, weight loss HEENT: Denies headache, eye drainage, eye irritation, head trauma, sore throat, voice change Cardiovascular: Denies any chest pain, palpitations, shortness of breath, tachycardia Respiratory: Denies any shortness of breath, cough, wheeze, stridor GI/: Denies any abdominal pain, nausea, vomiting, diarrhea, bright red blood per rectum, melanotic stools, urinary frequency, urinary retention, dysuria, hematuria MSK: Positive right wrist pain Skin: Denies any rashes, lesions, discoloration Neuro: Denies any headache, lightheadedness, dizziness, fainting, weakness Psych: Denies SI/HI Patient History Medical History Osteoporosis Prostate cancer metastatic to bone Essential hypertension Graves disease 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) Depression (06/21/15) Family History Father Stroke Social History marital status: number of children: 2 household members: spouse lives independently: Yes caregiver/support person: No housing: house Smoking Status: Former smoker second hand exposure: No alcohol intake: current substance use type: does not use Smoking Status: Former smoker alcohol intake frequency: 0-2 drinks per day Exam Narrative Exam Narrative: General: Cooperative, comfortable, well-developed, not in acute distress HEENT: Normocephalic, atraumatic, PERRLA, normal sclera, eyelids normal, Neck: Active full range of motion, atraumatic Chest: Normal to inspection, negative crepitus, no overlying erythema ecchymosis Respiratory: Normal respiratory effort, not in acute respiratory distress, clear to auscultation bilaterally negative cough, wheeze, tachypnea, rhonchi, rales Cardiology: Regular rate rhythm negative gallop, murmur, rubs GI/: Normal to inspection, soft, nonrigid, no tenderness to palpation, exam deferred MSK: Pain to palpation of the right wrist however neurovascularly intact, ecchymosis noted to the anterior aspect of the wrist, no crepitus Skin: No rashes lesions noted Neuro: Alert awake oriented x3, moves all 4 extremities spontaneously, cranial nerves intact, able to answer all questions appropriately follows commands appropriately Psych: Cooperative, negative suicidal or homicidal ideations Initial Vital Signs Initial Vital Signs: Vital Signs Temperature 98 F 08/21/24 17:30 Pulse Rate 77 08/21/24 17:30 Respiratory Rate 17 08/21/24 17:30 Blood Pressure 137/61 08/21/24 17:30 Pulse Oximetry 97 08/21/24 17:30 Oxygen Delivery Method Room Air 08/21/24 17:30 Course Orders Ordered: ED Orders 08/21/24 17:27 CT head/brain wo con Stat 08/21/24 17:28 XR ribs RT min 3V w CXR1V Stat 08/21/24 17:29 XR forearm RT 2V Stat 08/21/24 18:15 EKG-12 Lead Stat 08/21/24 18:30 Complete Blood Count AUTO DIFF Stat Comprehensive Metabolic Panel Stat Prothrombin Time INR Stat Troponin & CK Cardiac Panel Stat 08/21/24 23:12 XR wrist RT 2V Stat Discontinued Medications Morphine Sulfate (Morphine 2 Mg/Ml Inj) 2 mg IV NOW ONE Stop: 08/21/24 20:23 Last Admin: 08/21/24 20:31 Dose: 2 mg Documented By: Vital Signs Vital signs: Vital Signs - 8 hr 08/21/24 17:30 08/21/24 20:43 08/21/24 20:43 Temperature 98 F Pulse Rate 77 68 Respiratory Rate 17 Blood Pressure 137/61 146/72 H Pulse Oximetry 97 79 L Oxygen Delivery Method Room Air 08/21/24 21:00 08/21/24 21:00 08/21/24 21:30 Temperature Pulse Rate 72 74 Respiratory Rate 16 Blood Pressure 132/70 Pulse Oximetry 95 96 Oxygen Delivery Method Room Air 08/21/24 21:30 Temperature Pulse Rate Respiratory Rate Blood Pressure 130/69 Pulse Oximetry Oxygen Delivery Method MDM - Fall Differential Diagnosis Differential diagnosis: Likely other (Intracranial hemorrhage, cervical neck fracture, distal radius fracture) Lab Data 08/21/24 18:30 08/21/24 18:30 Labs: Lab Results 08/21/24 Range/Units 18:30 WBC 12.3 H (4.5-11.0) X10^3/uL RBC 4.60 (4.5-5.9) X10^6/uL Hgb 14.4 (13.5-17.5) g/dL Hct 42.7 (41-53) % MCV 92.9 (80-100) fL MCH 31.4 (26-34) PG MCHC 33.8 (30-36) % RDW 13.8 (11.6-14.8) % Plt Count 274 (150-400) X10^3/uL Neut % (Auto) 84.5 H (50-75) % Lymph % (Auto) 9.5 L (25-40) % [place] % (Auto) 4.8 (3-14) % Eos % (Auto) 0.4 L (2-4) % Baso % (Auto) 0.8 (0-2) % Neut # (Auto) 55634 H (7165-7994) /uL Lymph # (Auto) 1200 (6788-8886) /uL [place] # (Auto) 600 (0-900) /uL Eos # (Auto) 100 (0-450) /uL Baso # (Auto) 100 (0-100) /uL PT 11.6 (9.4-12.5) SECONDS INR 1.0 (0.9-1.3) Sodium 131 L (137-145) mmol/L Potassium 4.2 (3.4-5.1) mmol/L Chloride 95 L (98-107) mmol/L Carbon Dioxide 32 (22-32) mmol/L BUN 26 H (9-20) mg/dL Creatinine 0.72 (0.66-1.25) mg/dL Estimated GFR > 60 (>60) mL/min BUN/Creatinine Ratio 36.1 H (6-22) Glucose 107 (80-110) mg/dL Calcium 9.3 (8.4-10.2) mg/dL Total Bilirubin 0.7 (0.2-1.3) mg/dL AST 37 (17-59) IU/L ALT 24 (<50) IU/L Alkaline Phosphatase 101 (38-126) U/L Total Creatine Kinase 85 (55-170) U/L Troponin I < 0.012 (0.01-0.034) ng/mL Total Protein 7.8 (6.3-8.2) g/dL Albumin 4.3 (3.5-5.0) g/dL Globulin 3.5 (1.7-4.1) g/dL Albumin/Globulin Ratio 1.2 (1.0-2.8) Imaging Data CT scan - head: Radiologist's Impression: [address] [address] [address] Scan Report Signed Patient: Dany Lovelace MR#: [id number] : 1945 Acct:[id number] Age/Sex: 78 / M Date of Service: 08/21/24 Loc: ED Accession Number: [id number] Procedure: CT head/brain wo con Ordering Provider: Maude Thompson D.O. PROCEDURE: CT HEAD/BRAIN WO CON INDICATIONS: fall TECHNIQUE: Noncontrast 4.5 mm thick angled axial sections acquired from the foramen magnum to the vertex, with coronal and sagittal reformats. For radiation dose reduction, the following was used: automated exposure control, adjustment of mA and/or kV according to patient size. COMPARISON: [facility], CT, CT HEAD/BRAIN WO CON, 09/16/2023, 16:48. FINDINGS: Image quality: Diagnostic. CSF spaces: Basal cisterns are patent. No extra-axial fluid collections. The ventricles are symmetric in size and shape. Brain: No intracranial bleeds or masses. There is cerebral volume loss for age, with resultant ventricular and sulcal prominence. There are periventricular and deep white matter chronic small vessel ischemic changes. There is intracranial internal carotid artery atherosclerosis. Skull and face: Calvarium and visualized facial bones appear intact, without suspicious lesions. Sinuses: Visualized sinuses and mastoids are clear. IMPRESSION: No acute intracranial pathology. Chest x-ray: Radiologist's Impression: [address] [address] XRay Report Signed Patient: Dany Lovelace MR#: [id number] : 1945 Acct:[id number] Age/Sex: 78 / M Date of Service: 08/21/24 Loc: ED Accession Number: [id number] Procedure: XR ribs RT min 3V w CXR1V Ordering Provider: Maude Thompson D.O. PROCEDURE: XR RIBS RT MIN 3V W CXR 1V INDICATIONS: fall TECHNIQUE: 2 views of the ribs were acquired, along with a single view chest. COMPARISON: None. FINDINGS: Surgical changes and devices: None. Bones and chest wall: No fractures or dislocations. No suspicious bony lesions. Overlying soft tissues appear unremarkable. Lungs and pleura: No pleural effusions or pneumothorax. Lungs appear clear. Mediastinum: Mediastinal contours appear normal. Heart size is normal. IMPRESSION: No displaced rib fracture or pneumothorax. Extremity x-ray #1: Radiologist's Impression: [address] [address] XRay Report Signed Patient: Dany Lovelace MR#: [id number] : 1945 Acct:[id number] Age/Sex: 78 / M Date of Service: 08/21/24 Loc: ED Accession Number: [id number] Procedure: XR forearm RT 2V Ordering Provider: Maude Thompson D.O. PROCEDURE: XR FOREARM RT 2V INDICATIONS: fall TECHNIQUE: 3 views of the forearm were acquired. COMPARISON: None. FINDINGS: Bones: Mildly displaced distal radial fracture. Displaced ulnar styloid fracture.. No suspicious bony lesions. Soft tissues: No suspicious soft tissue calcifications or masses. Atherosclerotic vascular calcifications. IMPRESSION: Distal radial and ulnar styloid fractures. Extremity x-ray #2: Radiologist's Impression: [address] [address] XRay Report Signed Patient: Dany Lovelace MR#: [id number] : 1945 Acct:[id number] Age/Sex: 78 / M Date of Service: 08/21/24 Loc: ED Accession Number: [id number] Procedure: XR wrist RT 2V Ordering Provider: Juan Carlos Santos D.O. PROCEDURE: XR WRIST RT 2V INDICATIONS: post reduction TECHNIQUE: 2 views of the wrist were acquired. COMPARISON: [facility], CR, XR FOREARM RT 2V, 08/21/2024, 17:27. FINDINGS: Bones: There has reduction previous distal radial and styloid fractures. While there is improved anatomic alignment there is still remains dorsal angulation the distal radial. Soft tissues: No suspicious soft tissue calcifications. IMPRESSION: Interval reduction of distal radial fractures persistent dorsal angulation distal radial. ECG Data Interpretation: EKG interpreted ED physician sinuses 69 beats per minute QTC 428, normal axis, nonspecific ST changes, no STEMI MDM Narrative Medical decision making narrative: 78-year-old male with past medical history hypothyroidism, hypertension mechanical trip and fall yesterday landed on his right hand, has had pain since then. Patient had CT scan head negative for any acute finding, x-ray did show distal radius and ulnar fracture. Performed intra-articular/hematoma block as well as reduction using bedside finger traps, patient tolerated procedure well splint was placed post splint reduction tolerated appropriately. Patient was instructed to follow up with Orthopedic surgery in outpatient setting they verbalized understanding of this and agrees with being discharged home with outpatient follow up Discharge Plan Departure Patient Disposition: Home Clinical Impression: Closed fracture distal radius and ulna Activity Restrictions/Additional Instructions: Please follow up with Orthopedic surgery in outpatient setting Please read the discharge instructions sheet carefully and bring all papers to all doctor follow-up visits, as it may contain information that your doctor may want to see. Disease processes change and evolve, if your symptoms worsen or if you develop any new symptoms that are concerning to you please return for evaluation. Your evaluation today does not show any evidence of any life- threatening/serious illnesses requiring admission to the hospital or surgery. Please follow-up with your doctor for re-evaluation in approximately 1 day. Seek immediate medical attention for any worrisome symptoms. *If you do not have a primary care provider please contact the [facility] Resource line at [phone]. They will ask some questions about your medical history and help get you set up with a doctor in the community. Prescriptions: New oxycodone-acetaminophen [Percocet] 5-325 mg tablet 1 tab PO Q8H PRN (Reason: pain) 3 Days Qty: 9 0RF No Action oxycodone 5 mg tablet See Rx Instructions PO Q6H PRN (Reason: pain) Qty: 40 0RF Rx Instructions: Take 1-2 tabs orally every 6 hours PRN; lisinopril 5 mg tablet 5 mg PO DAILY Qty: 90 3RF oxycodone 5 mg tablet 5 mg PO Q6H PRN (Reason: pain) Qty: 15 0RF hydrocodone-acetaminophen 5-325 mg tablet 1 tab PO Q8H PRN (Reason: pain) Qty: 30 0RF calcitonin (salmon) 200 unit/actuation spray,non-aerosol 1 spray intranasal (ALT) DAILY Qty: 3.7 2RF Rx Instructions: Take for 4 weeks celecoxib [Celebrex] 200 mg capsule 200 mg PO BID Qty: 30 0RF Adthyza 60 mg tablet 60 mg PO DAILY Qty: 90 0RF atenolol 50 mg tablet 50 mg PO DAILY Qty: 90 0RF multivitamin Tablet 1 tab PO 3XW ascorbic acid (vitamin C) [Vitamin C] 500 mg Tablet 500 mg PO 3XW zinc 50 mg Capsule 50 mg PO 3XW acetylcysteine [NAC] 600 mg Capsule 600 mg PO 3XW Rx Instructions: pt to confirm dose vitamin D3-vitamin K2 125-90 mcg Capsule 1 cap PO 3XW Rx Instructions: PT UNSURE OF DOSE-PT TO CONFIRM quercetin 500 mg Capsule 500 mg PO 3XW Serotonin 1 tab DAILY prednisone 5 mg Tablet 5 mg PO DAILY Qty: 30 11RF abiraterone 250 mg Tablet 1,000 mg PO DAILY Qty: 120 11RF Rx Instructions: must be taken on empty stomach, at least 1 hr before or 2 hrs after a meal/food Referrals: Lindsay Carmen MD [Primary Care Provider] - Derek Jose MD [Physician] - Stand Alone Forms: Patient Portal/API/Survey
[2024-08-21] MEDS: MORPHINE 2 MG/ML INJ IV (20:31)
--- NOTE | 2024-08-21 23:12 | DI.RAD.S_ITS ---
PROCEDURE: XR WRIST RT 2V INDICATIONS: post reduction TECHNIQUE: 2 views of the wrist were acquired. COMPARISON: [facility], CR, XR FOREARM RT 2V, 08/21/2024, 17:27. FINDINGS: Bones: There has reduction previous distal radial and styloid fractures. While there is improved anatomic alignment there is still remains dorsal angulation the distal radial. Soft tissues: No suspicious soft tissue calcifications. IMPRESSION: Interval reduction of distal radial fractures persistent dorsal angulation distal radial. Dictated by: Swati Jay M.D. on 08/21/2024 at 23:40 Approved by: Swati Jay M.D. on 08/21/2024 at 23:41
[2024-08-21] MEDS: OXYCODONE/ACETAMINOPHEN 5/325 TABLET 1 TAB PO (23:53)
--- NOTE | 2024-09-01 07:19 | ED.FALL ---
HPI - Fall General Chief Complaint: Fall Stated Complaint: Fall, arm injury, unstable on legs,+blood thinner Time Seen by Provider: 08/21/24 20:27 Source: patient and family Mode of arrival: Wheelchair Related Data Home Medications Medication Instructions Recorded Confirmed Serotonin 1 tab DAILY 09/14/22 10/27/23 acetylcysteine 600 mg capsule (NAC) 600 mg PO 3XW 09/14/22 10/27/23 ascorbic acid (vitamin C) 500 mg 500 mg PO 3XW 09/14/22 10/27/23 tablet (Vitamin C) multivitamin 1 tab PO 3XW 09/14/22 10/27/23 quercetin 500 mg capsule 500 mg PO 3XW 09/14/22 10/27/23 vitamin D3 125 mcg (5,000 1 cap PO 3XW 09/14/22 10/27/23 unit)-vitamin K2 90 mcg capsule zinc 50 mg capsule 50 mg PO 3XW 09/14/22 10/27/23 Previous Rx's Medication Instructions Recorded prednisone 5 mg tablet 5 mg PO DAILY prostate cancer #30 10/22/22 tabs abiraterone 250 mg tablet 1,000 mg (4 x 250 mg) PO DAILY 10/29/22 #120 tabs oxycodone 5 mg tablet See Rx Instructions PO Q6H PRN 03/29/23 pain #40 tabs celecoxib 200 mg capsule (Celebrex) 200 mg PO BID #30 caps 04/20/23 calcitonin (salmon) 200 1 spray intranasal (ALT) DAILY 09/29/23 unit/actuation nasal spray #3.7 mL hydrocodone 5 mg-acetaminophen 325 1 tab PO Q8H PRN pain #30 tabs 09/29/23 mg tablet oxycodone 5 mg tablet 5 mg PO Q6H PRN pain #15 tabs 09/29/23 thyroid (pork) 60 mg tablet 60 mg PO DAILY #90 tabs 08/16/24 atenolol 50 mg tablet 50 mg PO DAILY #90 tabs 08/21/24 lisinopril 5 mg tablet 5 mg PO DAILY #90 tabs 08/30/24 Allergies Allergy/AdvReac Type Severity Reaction Status Date / Time No Known Drug Allergies Allergy Verified 10/27/23 13:52 Patient History Medical History Osteoporosis Prostate cancer metastatic to bone Essential hypertension Graves disease 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) Depression (06/21/15) Family History Father Stroke Social History marital status: number of children: 2 household members: spouse lives independently: Yes caregiver/support person: No housing: house Smoking Status: Former smoker second hand exposure: No alcohol intake: current substance use type: does not use Smoking Status: Former smoker alcohol intake frequency: 0-2 drinks per day Exam Initial Vital Signs Initial Vital Signs: Vital Signs Temperature 98 F 08/21/24 17:30 Pulse Rate 77 08/21/24 17:30 Respiratory Rate 17 08/21/24 17:30 Blood Pressure 137/61 08/21/24 17:30 Pulse Oximetry 97 08/21/24 17:30 Oxygen Delivery Method Room Air 08/21/24 17:30 Procedures Orthopedic Fracture Reduction Fracture #1: Time of procedure: 22:00 Time Out Performed: Yes Side: right Fracture Reduction Location: radius and ulna Analgesia: hematoma block Technique: finger traps Post Reduction X-rays Demonstrate: acceptable reduction Post-reduction neuro exam: intact Post-reduction vascular exam: intact Splint Applied: Yes Patient Tolerated Procedure: Well Course Orders Ordered: Discontinued Medications Morphine Sulfate (Morphine 2 Mg/Ml Inj) 2 mg IV NOW ONE Stop: 08/21/24 20:23 Last Admin: 08/21/24 20:31 Dose: 2 mg Documented By: Oxycodone/Acetaminophen (Oxycodone/Acetaminophen 5/325 Tablet) 1 tab PO NOW ONE Stop: 08/21/24 23:51 Last Admin: 08/21/24 23:53 Dose: 1 tab Documented By: STEVE MDM - Fall Lab Data 08/21/24 18:30 08/21/24 18:30 Labs: Lab Results 08/21/24 Range/Units 18:30 WBC 12.3 H (4.5-11.0) X10^3/uL RBC 4.60 (4.5-5.9) X10^6/uL Hgb 14.4 (13.5-17.5) g/dL Hct 42.7 (41-53) % MCV 92.9 (80-100) fL MCH 31.4 (26-34) PG MCHC 33.8 (30-36) % RDW 13.8 (11.6-14.8) % Plt Count 274 (150-400) X10^3/uL Neut % (Auto) 84.5 H (50-75) % Lymph % (Auto) 9.5 L (25-40) % [place] % (Auto) 4.8 (3-14) % Eos % (Auto) 0.4 L (2-4) % Baso % (Auto) 0.8 (0-2) % Neut # (Auto) 82893 H (3058-5056) /uL Lymph # (Auto) 1200 (5977-3989) /uL [place] # (Auto) 600 (0-900) /uL Eos # (Auto) 100 (0-450) /uL Baso # (Auto) 100 (0-100) /uL PT 11.6 (9.4-12.5) SECONDS INR 1.0 (0.9-1.3) Sodium 131 L (137-145) mmol/L Potassium 4.2 (3.4-5.1) mmol/L Chloride 95 L (98-107) mmol/L Carbon Dioxide 32 (22-32) mmol/L BUN 26 H (9-20) mg/dL Creatinine 0.72 (0.66-1.25) mg/dL Estimated GFR > 60 (>60) mL/min BUN/Creatinine Ratio 36.1 H (6-22) Glucose 107 (80-110) mg/dL Calcium 9.3 (8.4-10.2) mg/dL Total Bilirubin 0.7 (0.2-1.3) mg/dL AST 37 (17-59) IU/L ALT 24 (<50) IU/L Alkaline Phosphatase 101 (38-126) U/L Total Creatine Kinase 85 (55-170) U/L Troponin I < 0.012 (0.01-0.034) ng/mL Total Protein 7.8 (6.3-8.2) g/dL Albumin 4.3 (3.5-5.0) g/dL Globulin 3.5 (1.7-4.1) g/dL Albumin/Globulin Ratio 1.2 (1.0-2.8) Discharge Plan Departure Patient Disposition: Home Clinical Impression: Closed fracture distal radius and ulna Activity Restrictions/Additional Instructions: Please follow up with Orthopedic surgery in outpatient setting Please read the discharge instructions sheet carefully and bring all papers to all doctor follow-up visits, as it may contain information that your doctor may want to see. Disease processes change and evolve, if your symptoms worsen or if you develop any new symptoms that are concerning to you please return for evaluation. Your evaluation today does not show any evidence of any life-threatening/serious illnesses requiring admission to the hospital or surgery. Please follow-up with your doctor for re-evaluation in approximately 1 day. Seek immediate medical attention for any worrisome symptoms. *If you do not have a primary care provider please contact the [facility] Resource line at [phone]. They will ask some questions about your medical history and help get you set up with a doctor in the community. Prescriptions: No Action oxycodone 5 mg tablet See Rx Instructions PO Q6H PRN (Reason: pain) Qty: 40 0RF Rx Instructions: Take 1-2 tabs orally every 6 hours PRN; oxycodone 5 mg tablet 5 mg PO Q6H PRN (Reason: pain) Qty: 15 0RF hydrocodone-acetaminophen 5-325 mg tablet 1 tab PO Q8H PRN (Reason: pain) Qty: 30 0RF calcitonin (salmon) 200 unit/actuation spray,non-aerosol 1 spray intranasal (ALT) DAILY Qty: 3.7 2RF Rx Instructions: Take for 4 weeks celecoxib [Celebrex] 200 mg capsule 200 mg PO BID Qty: 30 0RF Adthyza 60 mg tablet 60 mg PO DAILY Qty: 90 0RF atenolol 50 mg tablet 50 mg PO DAILY Qty: 90 0RF lisinopril 5 mg tablet 5 mg PO DAILY Qty: 90 3RF multivitamin Tablet 1 tab PO 3XW ascorbic acid (vitamin C) [Vitamin C] 500 mg Tablet 500 mg PO 3XW zinc 50 mg Capsule 50 mg PO 3XW acetylcysteine [NAC] 600 mg Capsule 600 mg PO 3XW Rx Instructions: pt to confirm dose vitamin D3-vitamin K2 125-90 mcg Capsule 1 cap PO 3XW Rx Instructions: PT UNSURE OF DOSE-PT TO CONFIRM quercetin 500 mg Capsule 500 mg PO 3XW Serotonin 1 tab DAILY prednisone 5 mg Tablet 5 mg PO DAILY Qty: 30 11RF abiraterone 250 mg Tablet 1,000 mg PO DAILY Qty: 120 11RF Rx Instructions: must be taken on empty stomach, at least 1 hr before or 2 hrs after a meal/food Referrals: Lindsay Carmen MD [Primary Care Provider] - Derek Jose MD [Physician] - Stand Alone Forms: Patient Portal/API/Survey
--- NOTE | 2024-09-01 07:23 | ED_ITS ---
HPI - Fall General Chief Complaint: Fall Stated Complaint: Fall, arm injury, unstable on legs,+blood thinner Time Seen by Provider: 08/21/24 20:27 Source: patient and family Mode of arrival: Wheelchair Related Data Home Medications Medication Instructions Recorded Confirmed Serotonin 1 tab DAILY 09/14/22 10/27/23 acetylcysteine 600 mg capsule (NAC) 600 mg PO 3XW 09/14/22 10/27/23 ascorbic acid (vitamin C) 500 mg 500 mg PO 3XW 09/14/22 10/27/23 tablet (Vitamin C) multivitamin 1 tab PO 3XW 09/14/22 10/27/23 quercetin 500 mg capsule 500 mg PO 3XW 09/14/22 10/27/23 vitamin D3 125 mcg (5,000 1 cap PO 3XW 09/14/22 10/27/23 unit)-vitamin K2 90 mcg capsule zinc 50 mg capsule 50 mg PO 3XW 09/14/22 10/27/23 Previous Rx's Medication Instructions Recorded prednisone 5 mg tablet 5 mg PO DAILY prostate cancer #30 10/22/22 tabs abiraterone 250 mg tablet 1,000 mg (4 x 250 mg) PO DAILY 10/29/22 #120 tabs oxycodone 5 mg tablet See Rx Instructions PO Q6H PRN 03/29/23 pain #40 tabs celecoxib 200 mg capsule (Celebrex) 200 mg PO BID #30 caps 04/20/23 calcitonin (salmon) 200 1 spray intranasal (ALT) DAILY 09/29/23 unit/actuation nasal spray #3.7 mL hydrocodone 5 mg-acetaminophen 325 1 tab PO Q8H PRN pain #30 tabs 09/29/23 mg tablet oxycodone 5 mg tablet 5 mg PO Q6H PRN pain #15 tabs 09/29/23 thyroid (pork) 60 mg tablet 60 mg PO DAILY #90 tabs 08/16/24 atenolol 50 mg tablet 50 mg PO DAILY #90 tabs 08/21/24 lisinopril 5 mg tablet 5 mg PO DAILY #90 tabs 08/30/24 Allergies Allergy/AdvReac Type Severity Reaction Status Date / Time No Known Drug Allergies Allergy Verified 10/27/23 13:52 Patient History Medical History Osteoporosis Prostate cancer metastatic to bone Essential hypertension Graves disease 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) Depression (06/21/15) Family History Father Stroke Social History marital status: number of children: 2 household members: spouse lives independently: Yes caregiver/support person: No housing: house Smoking Status: Former smoker second hand exposure: No alcohol intake: current substance use type: does not use Smoking Status: Former smoker alcohol intake frequency: 0-2 drinks per day Exam Initial Vital Signs Initial Vital Signs: Vital Signs Temperature 98 F 08/21/24 17:30 Pulse Rate 77 08/21/24 17:30 Respiratory Rate 17 08/21/24 17:30 Blood Pressure 137/61 08/21/24 17:30 Pulse Oximetry 97 08/21/24 17:30 Oxygen Delivery Method Room Air 08/21/24 17:30 Procedures Orthopedic Fracture Reduction Fracture #1: Time of procedure: 22:00 Time Out Performed: Yes Side: right Fracture Reduction Location: radius and ulna Analgesia: hematoma block Technique: finger traps Post Reduction X-rays Demonstrate: anatomical reduction Post-reduction neuro exam: intact Post-reduction vascular exam: intact Splint Applied: Yes Patient Tolerated Procedure: Well Course Orders Ordered: Discontinued Medications Morphine Sulfate (Morphine 2 Mg/Ml Inj) 2 mg IV NOW ONE Stop: 08/21/24 20:23 Last Admin: 08/21/24 20:31 Dose: 2 mg Documented By: Oxycodone/Acetaminophen (Oxycodone/Acetaminophen 5/325 Tablet) 1 tab PO NOW ONE Stop: 08/21/24 23:51 Last Admin: 08/21/24 23:53 Dose: 1 tab Documented By: STEVE MDM - Fall Lab Data 08/21/24 18:30 08/21/24 18:30 Labs: Lab Results 08/21/24 Range/Units 18:30 WBC 12.3 H (4.5-11.0) X10^3/uL RBC 4.60 (4.5-5.9) X10^6/uL Hgb 14.4 (13.5-17.5) g/dL Hct 42.7 (41-53) % MCV 92.9 (80-100) fL MCH 31.4 (26-34) PG MCHC 33.8 (30-36) % RDW 13.8 (11.6-14.8) % Plt Count 274 (150-400) X10^3/uL Neut % (Auto) 84.5 H (50-75) % Lymph % (Auto) 9.5 L (25-40) % [place] % (Auto) 4.8 (3-14) % Eos % (Auto) 0.4 L (2-4) % Baso % (Auto) 0.8 (0-2) % Neut # (Auto) 07643 H (5089-7780) /uL Lymph # (Auto) 1200 (7477-2475) /uL [place] # (Auto) 600 (0-900) /uL Eos # (Auto) 100 (0-450) /uL Baso # (Auto) 100 (0-100) /uL PT 11.6 (9.4-12.5) SECONDS INR 1.0 (0.9-1.3) Sodium 131 L (137-145) mmol/L Potassium 4.2 (3.4-5.1) mmol/L Chloride 95 L (98-107) mmol/L Carbon Dioxide 32 (22-32) mmol/L BUN 26 H (9-20) mg/dL Creatinine 0.72 (0.66-1.25) mg/dL Estimated GFR > 60 (>60) mL/min BUN/Creatinine Ratio 36.1 H (6-22) Glucose 107 (80-110) mg/dL Calcium 9.3 (8.4-10.2) mg/dL Total Bilirubin 0.7 (0.2-1.3) mg/dL AST 37 (17-59) IU/L ALT 24 (<50) IU/L Alkaline Phosphatase 101 (38-126) U/L Total Creatine Kinase 85 (55-170) U/L Troponin I < 0.012 (0.01-0.034) ng/mL Total Protein 7.8 (6.3-8.2) g/dL Albumin 4.3 (3.5-5.0) g/dL Globulin 3.5 (1.7-4.1) g/dL Albumin/Globulin Ratio 1.2 (1.0-2.8) Discharge Plan Departure Patient Disposition: Home Clinical Impression: Closed fracture distal radius and ulna Activity Restrictions/Additional Instructions: Please follow up with Orthopedic surgery in outpatient setting Please read the discharge instructions sheet carefully and bring all papers to all doctor follow-up visits, as it may contain information that your doctor may want to see. Disease processes change and evolve, if your symptoms worsen or if you develop any new symptoms that are concerning to you please return for evaluation. Your evaluation today does not show any evidence of any life- threatening/serious illnesses requiring admission to the hospital or surgery. Please follow-up with your doctor for re-evaluation in approximately 1 day. Seek immediate medical attention for any worrisome symptoms. *If you do not have a primary care provider please contact the [facility] Resource line at [phone]. They will ask some questions about your medical history and help get you set up with a doctor in the community. Prescriptions: No Action oxycodone 5 mg tablet See Rx Instructions PO Q6H PRN (Reason: pain) Qty: 40 0RF Rx Instructions: Take 1-2 tabs orally every 6 hours PRN; oxycodone 5 mg tablet 5 mg PO Q6H PRN (Reason: pain) Qty: 15 0RF hydrocodone-acetaminophen 5-325 mg tablet 1 tab PO Q8H PRN (Reason: pain) Qty: 30 0RF calcitonin (salmon) 200 unit/actuation spray,non-aerosol 1 spray intranasal (ALT) DAILY Qty: 3.7 2RF Rx Instructions: Take for 4 weeks celecoxib [Celebrex] 200 mg capsule 200 mg PO BID Qty: 30 0RF Adthyza 60 mg tablet 60 mg PO DAILY Qty: 90 0RF atenolol 50 mg tablet 50 mg PO DAILY Qty: 90 0RF lisinopril 5 mg tablet 5 mg PO DAILY Qty: 90 3RF multivitamin Tablet 1 tab PO 3XW ascorbic acid (vitamin C) [Vitamin C] 500 mg Tablet 500 mg PO 3XW zinc 50 mg Capsule 50 mg PO 3XW acetylcysteine [NAC] 600 mg Capsule 600 mg PO 3XW Rx Instructions: pt to confirm dose vitamin D3-vitamin K2 125-90 mcg Capsule 1 cap PO 3XW Rx Instructions: PT UNSURE OF DOSE-PT TO CONFIRM quercetin 500 mg Capsule 500 mg PO 3XW Serotonin 1 tab DAILY prednisone 5 mg Tablet 5 mg PO DAILY Qty: 30 11RF abiraterone 250 mg Tablet 1,000 mg PO DAILY Qty: 120 11RF Rx Instructions: must be taken on empty stomach, at least 1 hr before or 2 hrs after a meal/food Referrals: Lindsay Carmen MD [Primary Care Provider] - Derek Jose MD [Physician] - Stand Alone Forms: Patient Portal/API/Survey
== END 2024-08-22 00:01 | disposition home or self-care (01) ==
PROVIDERS: Emergency Provider Student in an Organized Health Care Education/Training Program; Family Provider Family Medicine; PCP Family Medicine
DX: S52.501A Unspecified fracture of the lower end of right radius, initial encounter for closed fracture (principal); S52.601A Unspecified fracture of lower end of right ulna, initial encounter for closed fracture; S09.90XA Unspecified injury of head, initial encounter; R07.9 Chest pain, unspecified; R07.81 Pleurodynia; W01.0XXA Fall on same level from slipping, tripping and stumbling without subsequent striking against object, initial encounter
CPT/HCPCS: 25605; 36415; 70450; 71101; 73090; 73100; 80053; 82550; 84484; 85025; 85610; 93005; 96374; 99284; J2270

== ENCOUNTER → 2024-09-13 14:53 | Outpatient (CLI) | payer MEDICARE, SELFPAY ==
[2024-09-13 16:31] LABS: TSH w/ Reflex to FT4 6.21 uIU/mL (0.47-4.68)
[2024-09-13 17:07] LABS: Free T4, Direct Thyroxine 0.78 ng/dL (0.78-2.19)
== END ==
PROVIDERS: Family Provider Family Medicine; PCP Family Medicine; Referring Provider Family Medicine; Visit Provider Family Medicine
DX: E03.9 Hypothyroidism, unspecified (principal)
CPT/HCPCS: 36415; 84439; 84443

== ENCOUNTER → 2025-06-20 15:35 | Outpatient (CLI) | payer MEDICARE, SELFPAY ==
--- NOTE | 2025-06-20 15:37 | DI.RAD.S_ITS ---
PROCEDURE: XR CHEST 2V INDICATIONS: sob TECHNIQUE: 2 views of the chest were acquired. COMPARISON: [facility], , CHEST 2 VIEW, 06/07/2015, 10:11. FINDINGS: Surgical changes and devices: None. Lungs and pleura: There is hyperinflation. No focal infiltrate. No pleural effusions or pneumothorax. Mediastinum: Tortuous thoracic aorta. Heart size is normal. Bones and chest wall: No suspicious bony abnormalities. Soft tissues appear unremarkable. IMPRESSION: Hyperinflation. No focal infiltrate, pleural effusion or pneumothorax. Dictated by: Glenn Bagley M.D. on 06/21/2025 at 19:40 Approved by: Glenn Bagley M.D. on 06/21/2025 at 19:40
== END ==
PROVIDERS: PCP Family Medicine; Referring Provider Family Medicine; Visit Provider Family Medicine
DX: R06.02 Shortness of breath (principal); J98.4 Other disorders of lung
CPT/HCPCS: 71046